=== PATIENT | female | born 1950 | race Caucasian/White ===

== ENCOUNTER → 2018-03-25 11:44 | Outpatient (CLI) | payer MEDICARE, MEDICAID, SELFPAY ==
[2018-03-25 12:16] LABS: Prothrombin Time Fingerstick 16.2 SEC (11.9-14.4)
== END ==
PROVIDERS: Family Provider Family Medicine; PCP Family Medicine; Visit Provider Family Medicine
DX: Z86.73 Personal history of transient ischemic attack (TIA), and cerebral infarction without residual deficits (principal)
CPT/HCPCS: 36415; 36416; 85610

== ENCOUNTER → 2018-04-23 09:21 | Outpatient (CLI) | payer MEDICARE, MEDICAID, SELFPAY ==
[2018-04-23 10:51] LABS: International Normalized Ratio 2.2; Prothrombin Time (Protime)PT. 24.9 SECONDS (11.7-14.9)
== END ==
PROVIDERS: Family Provider Family Medicine; PCP Family Medicine; Visit Provider Family Medicine
DX: Z86.73 Personal history of transient ischemic attack (TIA), and cerebral infarction without residual deficits (principal)
CPT/HCPCS: 36415; 85610

== ENCOUNTER → 2018-06-16 11:33 | Outpatient (CLI) | payer MEDICARE, MEDICAID, SELFPAY ==
[2018-06-16 11:56] LABS: Prothrombin Time Fingerstick 15.1 SEC (11.9-14.4)
== END ==
PROVIDERS: Family Provider Family Medicine; PCP Family Medicine; Visit Provider Family Medicine
DX: Z86.73 Personal history of transient ischemic attack (TIA), and cerebral infarction without residual deficits (principal)
CPT/HCPCS: 36416; 85610

== ENCOUNTER → 2018-07-02 14:09 | Outpatient (CLI) | payer MEDICARE, MEDICAID, SELFPAY ==
[2018-07-02 14:51] LABS: Prothrombin Time Fingerstick 24.4 SEC (11.9-14.4)
== END ==
PROVIDERS: Family Provider Family Medicine; PCP Family Medicine; Visit Provider Family Medicine
DX: Z86.73 Personal history of transient ischemic attack (TIA), and cerebral infarction without residual deficits (principal); Z79.899 Other long term (current) drug therapy
CPT/HCPCS: 36416; 85610

== ENCOUNTER 2018-09-15 13:21 | Outpatient (RCR) | payer MEDICARE, MEDICAID, SELFPAY | END 2018-09-15 15:00 | disposition home or self-care (01) | LOC: LAB 13:21 | PROVIDERS: Family Provider Family Medicine; PCP Family Medicine; Referring Provider Nurse Practitioner Family; Visit Provider Nurse Practitioner Family | DX: Z86.73 Personal history of transient ischemic attack (TIA), and cerebral infarction without residual deficits (principal); Z79.899 Other long term (current) drug therapy | CPT/HCPCS: 36416; 85610 ==

== ENCOUNTER → 2018-10-23 10:35 | Outpatient (CLI) | payer MEDICARE, MEDICAID, SELFPAY ==
[2018-09-17 09:53] VITALS: BMI 34.4
[2018-10-23 12:50] LABS: AST(SGOT) 21 U/L (15-37); Alanine Aminotransfer ALT/SGPT 23 U/L (13-56); Albumin, Serum 3.7 g/dL (3.2-5.0); Alkaline Phosphatase 87 U/L (45-117); Anion Gap 11 (5-15); BUN 19 mg/dL (7-18); BUN/Creat Ratio 21.8 RATIO (10-20); Calcium,Total 9.2 mg/dL (8.5-10.1); Chloride 101 mmol/L (98-107); Cholesterol 175 mg/dL (200); Creatinine, Serum 0.87 mg/dL (0.55-1.02); EST Glomerular Filtration Rate 69 mL/min (>60); Est Glom Filt Rate - Afr Amer 83 mL/min (>60); Globulin 3.7 g/dL (2.2-4.2); Glucose 87 mg/dL (74-106); High Density Lipoprotein 76 mg/dL; Potassium 3.7 mmol/L (3.5-5.1); Protein, Total 7.4 g/dL (6.4-8.2); Sodium Level 139 mmol/L (136-145); Triglycerides 87 mg/dL; Very Low Density Lipoprotein 17 mg/dL (5-40)
== END ==
PROVIDERS: Family Provider Family Medicine; PCP Family Medicine; Referring Provider Family Medicine; Visit Provider Family Medicine
DX: I11.9 Hypertensive heart disease without heart failure (principal)
CPT/HCPCS: 36415; 80053; 80061

== ENCOUNTER → 2018-12-09 11:48 | Outpatient (CLI) | payer MEDICARE, MEDICAID, SELFPAY ==
[2018-12-09 11:05] VITALS: BMI 33.6
[2018-12-09 12:06] LABS: Prothrombin Time Fingerstick 22.1 SEC (11.9-14.4)
== END ==
PROVIDERS: Family Provider Family Medicine; PCP Family Medicine; Referring Provider Family Medicine; Visit Provider Family Medicine
DX: Z86.73 Personal history of transient ischemic attack (TIA), and cerebral infarction without residual deficits (principal)
CPT/HCPCS: 36416; 85610

== ENCOUNTER 2019-02-10 10:07 | Outpatient (RCR) | payer MEDICARE, MEDICAID, SELFPAY ==
[2019-02-10 09:28] VITALS: BMI 34.9
[2019-02-10 12:22] LABS: International Normalized Ratio 1.9; Prothrombin Time (Protime)PT. 21.3 SECONDS (11.7-14.9)
== END 2019-02-28 23:59 ==
LOC: BIMLAB 10:07
PROVIDERS: Family Provider Family Medicine; PCP Family Medicine; Visit Provider Nurse Practitioner Family
DX: Z86.73 Personal history of transient ischemic attack (TIA), and cerebral infarction without residual deficits (principal); Z79.01 Long term (current) use of anticoagulants
CPT/HCPCS: 36415; 85610

== ENCOUNTER 2019-04-13 10:24 | Outpatient (RCR) | payer MEDICARE, MEDICAID, SELFPAY ==
[2019-04-13 10:41] LABS: Prothrombin Time Fingerstick 16.7 SEC (11.9-14.4)
== END 2019-04-13 11:24 | disposition home or self-care (01) ==
LOC: LAB 10:24
PROVIDERS: Family Provider Family Medicine; PCP Family Medicine; Referring Provider Nurse Practitioner Family; Visit Provider Nurse Practitioner Family
DX: Z79.01 Long term (current) use of anticoagulants (principal); Z86.73 Personal history of transient ischemic attack (TIA), and cerebral infarction without residual deficits
CPT/HCPCS: 36416; 85610

== ENCOUNTER 2019-06-14 09:19 | Outpatient (RCR) | payer MEDICARE, MEDICAID, SELFPAY ==
[2019-04-14 09:10] VITALS: BMI 34.9
[2019-06-14 09:41] LABS: Prothrombin Time Fingerstick 16.3 SEC (11.9-14.4)
== END 2019-06-30 16:00 | disposition home or self-care (01) ==
LOC: LAB 09:19
PROVIDERS: Family Provider Family Medicine; PCP Family Medicine; Referring Provider Nurse Practitioner Family; Visit Provider Nurse Practitioner Family
DX: Z86.73 Personal history of transient ischemic attack (TIA), and cerebral infarction without residual deficits (principal); Z79.01 Long term (current) use of anticoagulants
CPT/HCPCS: 36416; 85610

== ENCOUNTER → 2019-08-18 10:24 | Outpatient (CLI) | payer MEDICARE, MEDICAID, SELFPAY ==
[2019-08-18 10:08] VITALS: BMI 35.6
[2019-08-18 12:28] LABS: International Normalized Ratio 1.4; Prothrombin Time (Protime)PT. 16.9 SECONDS (11.7-14.9)
[2019-08-18 13:00] LABS: AST(SGOT) 21 U/L (15-37); Alanine Aminotransfer ALT/SGPT 24 U/L (13-56); Albumin, Serum 3.9 g/dL (3.2-5.0); Alkaline Phosphatase 95 U/L (45-117); Anion Gap 8 (5-15); BUN 22 mg/dL (7-18); BUN/Creat Ratio 28.6 RATIO (10-20); Calcium,Total 9.5 mg/dL (8.5-10.1); Chloride 100 mmol/L (98-107); Cholesterol 185 mg/dL (200); Creatinine, Serum 0.77 mg/dL (0.55-1.02); EST Glomerular Filtration Rate 79 mL/min (>60); Est Glom Filt Rate - Afr Amer 95 mL/min (>60); Globulin 3.9 g/dL (2.2-4.2); Glucose 93 mg/dL (74-106); High Density Lipoprotein 81 mg/dL; Potassium 4.3 mmol/L (3.5-5.1); Protein, Total 7.8 g/dL (6.4-8.2); Sodium Level 138 mmol/L (136-145); Triglycerides 112 mg/dL; Very Low Density Lipoprotein 22 mg/dL (5-40)
== END ==
PROVIDERS: Family Provider Family Medicine; PCP Family Medicine; Visit Provider Family Medicine
DX: I10 Essential (primary) hypertension (principal); Z86.73 Personal history of transient ischemic attack (TIA), and cerebral infarction without residual deficits
CPT/HCPCS: 36415; 80053; 80061; 85610

== ENCOUNTER 2019-11-03 12:58 | Outpatient (RCR) | payer MEDICARE, MEDICAID, SELFPAY ==
[2019-06-16 10:52] VITALS: BMI 34.9
[2019-08-18 10:08] VITALS: BMI 35.6
== END 2019-11-03 18:00 | disposition home or self-care (01) ==
LOC: LAB 12:58
PROVIDERS: Family Provider Family Medicine; PCP Family Medicine; Referring Provider Nurse Practitioner Family; Visit Provider Nurse Practitioner Family
DX: Z79.01 Long term (current) use of anticoagulants (principal); Z86.73 Personal history of transient ischemic attack (TIA), and cerebral infarction without residual deficits
CPT/HCPCS: 36416; 85610

== ENCOUNTER 2019-12-15 15:24 | Outpatient (RCR) | payer MEDICARE, MEDICAID, SELFPAY ==
[2019-08-18 10:08] VITALS: BMI 35.6
[2019-12-15 15:12] VITALS: BMI 35.6
[2019-12-15 17:06] LABS: International Normalized Ratio 1.5; Prothrombin Time (Protime)PT. 18.3 SECONDS (11.7-14.9)
== END 2019-12-15 18:00 | disposition home or self-care (01) ==
LOC: LAB 15:24
PROVIDERS: Family Provider Family Medicine; PCP Family Medicine; Referring Provider Nurse Practitioner Family; Visit Provider Nurse Practitioner Family
DX: Z79.01 Long term (current) use of anticoagulants (principal); Z86.73 Personal history of transient ischemic attack (TIA), and cerebral infarction without residual deficits
CPT/HCPCS: 36415; 85610

== ENCOUNTER 2020-03-10 10:31 | Outpatient (RCR) | payer MEDICARE, MEDICAID, SELFPAY ==
[2020-03-10 13:01] LABS: Prothrombin Time Fingerstick 21.1 SEC (11.9-14.4)
== END 2020-03-30 18:00 | disposition home or self-care (01) ==
LOC: LAB 10:31
PROVIDERS: Family Provider Family Medicine; PCP Family Medicine; Referring Provider Nurse Practitioner Family; Visit Provider Nurse Practitioner Family
DX: Z86.73 Personal history of transient ischemic attack (TIA), and cerebral infarction without residual deficits (principal); Z79.01 Long term (current) use of anticoagulants
CPT/HCPCS: 36416; 85610

== ENCOUNTER 2020-06-06 11:44 | Outpatient (RCR) | payer MEDICARE, MEDICAID, SELFPAY ==
[2020-03-16 08:44] VITALS: BMI 35.6
[2020-06-07 07:16] LABS: Prothrombin Time Fingerstick 24.6 SEC (11.9-14.4)
== END 2020-06-06 18:00 | disposition home or self-care (01) ==
LOC: LAB 11:44
PROVIDERS: Family Provider Family Medicine; PCP Family Medicine; Referring Provider Nurse Practitioner Family; Visit Provider Nurse Practitioner Family
DX: Z79.01 Long term (current) use of anticoagulants (principal); Z86.73 Personal history of transient ischemic attack (TIA), and cerebral infarction without residual deficits
CPT/HCPCS: 36416; 85610

== ENCOUNTER → 2020-06-07 11:45 | Outpatient (CLI) | payer MEDICARE, MEDICAID, SELFPAY ==
[2020-06-07 11:14] VITALS: BMI 35.6
[2020-06-07 13:16] LABS: BNP,B-Type NATRIURETIC PEPTIDE 83.8 pg/mL (0-100)
[2020-06-07 13:24] LABS: AST(SGOT) 21 U/L (15-37); Alanine Aminotransfer ALT/SGPT 25 U/L (13-56); Albumin, Serum 3.9 g/dL (3.2-5.0); Alkaline Phosphatase 94 U/L (45-117); Anion Gap 4 (5-15); BUN 20 mg/dL (7-18); BUN/Creat Ratio 22.5 RATIO (10-20); Calcium,Total 9.4 mg/dL (8.5-10.1); Chloride 103 mmol/L (98-107); Creatinine, Serum 0.89 mg/dL (0.55-1.02); EST Glomerular Filtration Rate 67 mL/min (>60); Est Glom Filt Rate - Afr Amer 81 mL/min (>60); Globulin 3.9 g/dL (2.2-4.2); Glucose 88 mg/dL (74-106); Potassium 4.1 mmol/L (3.5-5.1); Protein, Total 7.8 g/dL (6.4-8.2); Sodium Level 137 mmol/L (136-145)
== END ==
PROVIDERS: PCP Family Medicine; Referring Provider Family Medicine; Visit Provider Family Medicine
DX: R06.00 Dyspnea, unspecified (principal); I10 Essential (primary) hypertension
CPT/HCPCS: 36415; 80053; 83880

== ENCOUNTER → 2020-06-13 09:40 | Outpatient (CLI) | payer MEDICARE, MEDICAID, SELFPAY ==
[2020-06-07 11:14] VITALS: BMI 35.6
--- NOTE | 2020-06-13 09:40 | VDLE_ITS ---
Reason For Study: Swelling Procedure LEFT Exam performed in department. GSV is normal. A preliminary report was called and/or faxed CFV is compressible, spontaneous, phasic, to Jeff. competent, and demonstrates normal augmentation. FV is compressible, spontaneous, phasic, competent and demonstrates normal augmentation. FV Distal visualized with color only, pt unable to tolerate compression. POP V is compressible, spontaneous, phasic, competent and demonstrates normal augmentation. T/P Trunk is compressible. PTV is compressible. LT PerV is compressible. Interpretation Summary There is no evidence of left lower extremity deep vein thrombosis. Left great saphenous vein appears patent and compressible segmentally. Ordering Physician: Romario Aguilar Referring Physician: Romario Aguilar Performed By: Bety Mcarthur RVT
== END ==
PROVIDERS: PCP Family Medicine; Referring Provider Family Medicine; Visit Provider Family Medicine
DX: M79.89 Other specified soft tissue disorders (principal)
CPT/HCPCS: 93971

== ENCOUNTER → 2020-07-07 10:04 | Outpatient (CLI) | payer MEDICARE, MEDICAID, SELFPAY ==
[2020-06-23 15:14] VITALS: BMI 35.6
--- NOTE | 2020-07-07 11:12 | ECHOCS_ITS ---
Version 2 Reason For Study: SOB Procedure This was a 2D Doppler, Color Flow transthoracic echocardiogram. The study was technically difficult. Exam performed in department. Left Ventricle Normal LV size. The estimated ejection fraction is 50 %. Diastolic function is indeterminate. [place] : Hypokinetic. Right Ventricle Normal RV size. Normal systolic function. Atria Normal left atrium. Normal right atrium. No doppler evidence for ASD. Mitral Valve There is moderate mitral annular calcification. There is no mitral valve stenosis. Trivial mitral valve insufficiency. Tricuspid Valve There is no tricuspid stenosis. Unable to estimate RV systolic pressure due to inadequate jet, pulmonary artery pressure probably normal. Aortic Valve Trisinus/trileaflet aortic valve. There is no aortic stenosis. No aortic valve insufficiency. Pulmonic Valve There is no pulmonic valvular stenosis. No pulmonic valve insufficiency. Great Vessels Normal aortic root. Pericardium/Pleural No pericardial effusion. Medication 22 gauge I.V. with prn adaptor inserted into right arm. Diluted definity 2ml given slow IV push to enhance endocardial definition. MMode/2D Measurements & Calculations LVIDd: 4.4 cm IVSd: 0.89 cm Ao root diam: 2.6 cm LVIDs: 3.0 cm LVPWd: 1.0 cm RVDd: 2.8 cm FS: 31.3 % LAV(MOD-bp): 45.9 ml LA A4 area: 16.4 cm2 LA dimension(2D): 3.7 cm LAV(MOD-bp) Indexed: 22.7 ml/m2 LAV(MOD-sp2): 49.3 ml LAV(MOD-sp4): 42.3 ml RA A4 area: 14.0 cm2 Doppler Measurements & Calculations MV E max arul: 91.8 cm/sec Lat Peak E' Raul: 8.0 cm/sec Med Peak E' Raul: 5.4 cm/sec E/E' lat: 11.4 E/E' med: 16.9 Ao V2 max: 142.7 cm/sec LV V1 max: 106.6 cm/sec PA V2 max: 104.8 cm/sec Ao max P.2 mmHg LV V1 max P.5 mmHg Interpretation Summary The estimated ejection fraction is 50 %. [place] : Hypokinetic. Trivial mitral valve insufficiency. Diastolic function is indeterminate. The study was technically difficult. Contrast injection was performed. Ordering Physician: Romario Aguilar Referring Physician: Romario Aguilar Performed By: Amanda Whitley RDCS
== END ==
PROVIDERS: PCP Family Medicine; Referring Provider Family Medicine; Visit Provider Family Medicine
DX: R06.00 Dyspnea, unspecified (principal); R06.02 Shortness of breath; J44.9 Chronic obstructive pulmonary disease, unspecified
CPT/HCPCS: 93306; J7040; Q9957; A4216; C8929

== ENCOUNTER → 2020-08-18 06:49 | Outpatient (CLI) | payer MEDICARE, MEDICAID, SELFPAY ==
[2020-07-26 09:51] VITALS: BMI 41.5
--- NOTE | 2020-08-18 11:26 | STRESSREP ---
Stress Test Report Pharmacologic myocardial perfusion stress test. 70-year-old lady with a history of previous coronary artery disease, COPD, abnormal echocardiogram. Resting EKG demonstrates normal sinus rhythm with downsloping ST depression noted in the inferolateral leads rate of 71 bpm. Resting blood pressure is 130/72 mmHg. 0.4 mg of regadenoson was infused per usual protocol followed by rapid intravenous saline flush injection continuous EKG monitoring was performed. The maximum heart rate attained was 95 bpm which was 63% of maximal predicted heart rate. At rest nonspecific ST-T wave changes were noted as noted above. At peak infusion there was downsloping ST depression noted of approximately 2 mm noted in leads II, III and aVF suggestive of abnormal flow reserve. The resting blood pressure was 130/72 with a final blood pressure of 124/76. Myocardial perfusion protocol. 11.7 mCi of technetium 99m sestamibi was injected at rest. 0.4 mg of regadenoson was infused per usual protocol. At peak infusion 32.8 mCi of technetium 99m sestamibi was injected stress images were obtained stress and rest images are reconstructed and compared in the short axis vertical long horizontal long axis. Gated images were also obtained. Perfusion SPECT analysis: Review of the stress images demonstrate a medium size defect noted involving the anterior apical wall. There is also a medium-sized defect involving the lateral wall and a large defect involving the inferior wall. On the resting images there appears to be a fixed defect in the apex but mild improvement in the mid anterior wall. The lateral wall also appears to have a mild to moderate amount of improvement as well as mild improvement noted in the inferior wall. The above is suggestive of multi-territory ischemia involving the anterior wall, lateral wall, inferior wall. Gated SPECT analysis: The gated ejection fraction is 63%. Conclusion: Abnormal pharmacologic myocardial perfusion stress test with abnormal EKG changes. Moderate amount of ischemia noted in the anterolateral wall, mid lateral wall, and inferior wall. Normal ejection fraction.
== END ==
PROVIDERS: PCP Family Medicine; Referring Provider Internal Medicine Cardiovascular Disease; Visit Provider Internal Medicine Cardiovascular Disease
DX: I25.10 Atherosclerotic heart disease of native coronary artery without angina pectoris (principal); R06.00 Dyspnea, unspecified
CPT/HCPCS: 78452; 93017; A9500; A4216; J2785

== ENCOUNTER 2020-08-22 06:32 | Day surgery (SDC) | payer MEDICARE, MEDICAID, SELFPAY ==
[2020-07-26 09:51] VITALS: BMI 41.5
--- NOTE | 2020-08-21 09:55 | RAD_ITS ---
STUDY: X-RAY CHEST REASON FOR EXAM: Female, 70 years old. DYSPNEA, ABNORMAL STRESS TEST, ABNORMAL ECHO TECHNIQUE: PA and lateral views of the chest. COMPARISON: None. FINDINGS: Mild degree of increased markings at the lung bases more prominent on the left side suggests a mild left basilar atelectasis. There is no demonstrated pleural abnormality. Normal size heart. Normal mediastinum and tommy. Normal visualized pulmonary arteries. There is atherosclerotic calcification of the aortic arch with tortuosity. There are diffuse degenerative changes of the visualized thoracic spine. Normal visualized ribs, clavicles, and shoulders. There is no demonstrated abnormality of the visualized soft tissue structures of the upper abdomen. RAD/Chest PA and Lateral IMPRESSION: Mild degree of increased markings at the lung bases from the left side. Electronically Signed: Blaze Pacheco, at 10:11 EDT , Service support ,
[2020-08-21 09:57] VITALS: BMI 41.5
[2020-08-21 10:01] LABS: Absolute Lymphocyte Count 3.41 X10^3/uL (0.83-4.51); Absolute Neutrophil Count 3.8 X10^3/uL (2.0-7.7); Basophil# 0.07 X10^3/uL; Basophil% 0.8 % (0-1); Eosinophils% 2.4 % (0-5); Hematocrit 34.4 % (37-47); Hemoglobin 10.4 g/dL (12.0-15.0); Lymphocyte # 3.41 X10^3/ul (4.0); Lymphocyte % 41.1 % (19-41); Mean Corp Hgb Conc 30.2 g/dL (32-36); Mean Corpuscular Hgb 28.8 pg (27.0-32.0); Mean Corpuscular Volume 95.3 fL (81-99); Monocyte# 0.75 X10^3/uL; NRBC Flagged by Analyzer 0 % (0-5); Neutrophil # 3.81 X10^3/uL (2.7-7.7); Neutrophil % 46.1 % (47-70); Platelet Count 333 K/mm3 (150-450); RBC Distribution Width CV 13.2 % (11.6-14.6); RBC Distribution Width SD 46.8 fl (35.1-43.9); Red Blood Count 3.61 M/mm3 (4.2-5.4); White Blood Count 8.3 K/mm3 (4.4-11.0)
[2020-08-21 10:11] LABS: International Normalized Ratio 1.1; Prothrombin Time (Protime)PT. 13.6 SECONDS (11.7-14.9)
[2020-08-21 10:30] LABS: Anion Gap 2 (5-15); BUN 19 mg/dL (7-18); BUN/Creat Ratio 22.1 RATIO (10-20); Calcium,Total 9.3 mg/dL (8.5-10.1); Chloride 105 mmol/L (98-107); Creatinine, Serum 0.86 mg/dL (0.55-1.02); EST Glomerular Filtration Rate 69 mL/min (>60); Est Glom Filt Rate - Afr Amer 84 mL/min (>60); Estimated Creatinine Clearance 45.28 ml/min; Glucose 76 mg/dL (74-106); Sodium Level 138 mmol/L (136-145)
[2020-08-22 06:51] LABS: Prothrombin Time Fingerstick 16.3 SEC (11.9-14.4)
--- NOTE | 2020-08-22 08:52 | CL.D_ITS ---
Patient Name: DEDRICK BUSTILLO Study Date: 08/22/2020 Performing: Norman Mccoy MD Ht: 61.02 inches 155 cm : 1950 Wt: 220.46 lbs 100 kg Age: 70 Gender: female BSA: 1.97 PROCEDURE(S) PERFORMED VD59-DOC/COR/LV CLINICAL PROFILE AND INDICATIONS Indications: Suspected CAD Heart Failure: None Stress/Imaging Date: 08/18/2020Stress Test with SPECT MPI: Positive High Risk CAD Presentations: Other: SOB CONCLUSIONS Severe triple-vessel disease involving a totally occluded mid LAD with distal ghost collaterals filli ng, high-grade circumflex artery stenosis, high-grade right coronary artery stenosis. Left to left a nd left to right collaterals filling the distal right coronary artery are noted. Nearly akinetic bas al inferior wall and hypokinetic anterior wall present. RECOMMENDATIONS Medical therapy DESCRIPTION OF PROCEDURE The patient arrived to the procedure lab. The risks and benefits of the procedure as well as a full d escription of our services here and current unavailability of surgical backup were fully explained to the patient and/or their significant other prior to the catheterization. The Timeout was completed, verifying the correct patient and procedure. The patient's procedural site was prepped and draped in the usual fashion. Local anesthetic was given subcutaneously to right radial region with Lidocaine 2% . Using a modified Seldinger technique, arterial access was obtained via the right radial artery, a 6 Fr sheath was inserted. Left Coronary Artery selective angiography was performed in multiple views u sing a 5 Fr. 4.0 [place] catheter. Right Coronary Artery selective angiography was then performed in mu ltiple views using a 5 Fr. 4.0 [place] catheter. Left Ventriculography was performed in GONZALEZ projection using a 5 Fr. Pigtail catheter. LV to AO pullback pressures were then recorded. CORONARY ANGIOGRAPHY DOMINANCE: Right Dominant LEFT HEART ASSESSMENT Left Ventricular Ejection Fraction: by LV Gram 40 % Anterior Hypokinesis - Moderate. Inferior Basal Akinesis Depressed Left Ventricular systolic function LEFT MAIN: Mild calcification, No significant disease noted LEFT ANTERIOR DESCENDING ARTERY: MID LAD: is occluded DISTAL LAD: Fills via collaterals, small vessel CIRCUMFLEX ARTERY: Mild luminal irregularities less than 30% OM 1: Proximal - 80 % Stenosis RIGHT CORONARY ARTERY: PROX RCA: 80 % Stenosis COLLATERAL FLOW: Collateral flow from Left to Left Collateral flow from Left to Right COMPLICATIONS PROCEDURE MEDICATIONS Fentanyl 50 mcg IV Versed 1 mg IV Oxygen: 2 L/min via nasal cannula Heparin diluted in 23cc Heparinized saline. Patient given 10cc IA of this solution. 08/22/2020 08:10: 38 Verapamil 2.5mg, Ntg 100mcgs, 2000 units of Heparin diluted in 23cc Heparinized saline. Patient give n 10cc IA of this solution. 08/22/2020 08:10:38 SUMMARY OF HEMODYNAMIC DATA Time AIR REST ECG 07:13:17 AO 133/62 (92) SA 08:11:47 LV 126/8, 23 08:19:52 LV 128/7, 23 08:19:58 LV 128/12, 27 08:21:01 LVp 125/51, 56 08:21:10 AOp 126/55 (86) 08:21:15 Signed By Norman Mccoy MD On 08/22/2020 8:50:46 AM Norman Mccoy MD
== END 2020-08-22 10:40 | disposition home or self-care (01) ==
PROVIDERS: PCP Family Medicine; Referring Provider Internal Medicine Cardiovascular Disease; Visit Provider Internal Medicine Cardiovascular Disease
DX: I25.10 Atherosclerotic heart disease of native coronary artery without angina pectoris (principal); I25.82 Chronic total occlusion of coronary artery; J44.9 Chronic obstructive pulmonary disease, unspecified; I10 Essential (primary) hypertension; E66.9 Obesity, unspecified; Z79.01 Long term (current) use of anticoagulants; Z79.82 Long term (current) use of aspirin; Z79.899 Other long term (current) drug therapy; Z86.73 Personal history of transient ischemic attack (TIA), and cerebral infarction without residual deficits; Z87.891 Personal history of nicotine dependence
CPT/HCPCS: 36415; 36416; 71046; 80048; 85025; 85610; 93458; 99152; 99153; J7040; C1769; C1894; Q9967

== ENCOUNTER 2020-09-27 10:59 | Outpatient (RCR) | payer MEDICARE, MEDICAID, SELFPAY ==
[2020-06-23 15:14] VITALS: BMI 35.6
[2020-07-26 09:51] VITALS: BMI 41.5
[2020-09-05 09:51] VITALS: BMI 41.5
[2020-09-27 11:25] LABS: Prothrombin Time Fingerstick 42.7 SEC (11.9-14.4)
[2020-09-27 12:33] LABS: International Normalized Ratio 3.3; Prothrombin Time (Protime)PT. 33.1 SECONDS (11.7-14.9)
== END 2020-09-27 18:00 | disposition home or self-care (01) ==
LOC: MTLAB 10:59
PROVIDERS: Family Provider Family Medicine; PCP Family Medicine; Referring Provider Nurse Practitioner Family; Visit Provider Nurse Practitioner Family
DX: Z79.01 Long term (current) use of anticoagulants (principal); Z86.73 Personal history of transient ischemic attack (TIA), and cerebral infarction without residual deficits
CPT/HCPCS: 36415; 36416; 85610

== ENCOUNTER 2020-11-15 14:59 | Outpatient (RCR) | payer MEDICARE, MEDICAID, SELFPAY ==
[2020-09-28 10:19] VITALS: BMI 41.3
--- NOTE | 2020-11-07 12:37 | RAD_ITS ---
HISTORY: dyspnea ADDITIONAL HISTORY: None provided. COMPARISON: 08/21/2020 EXAMINATION/TECHNIQUE: XR Chest 2 Views Number of images including paperwork: 2 FINDINGS: LUNGS AND PLEURA: No dense consolidation. Mild peribronchial thickening. Blunting of the right costophrenic angle on the AP view. CARDIAC SILHOUETTE: Stable. MEDIASTINUM AND SEVERO: Aortic calcification and tortuosity. UPPER ABDOMEN: Unremarkable. SKELETON AND SOFT TISSUES: No acute findings. OTHER DEVICES AND HARDWARE: None. RAD/Chest PA and Lateral IMPRESSION: Peribronchial thickening as can be seen with bronchitis and airways disease. Small right pleural effusion versus pleural scarring. at [id number] Reported and signed by: Gypsy El MD Electronically Signed: Gypsy El MD at 4:56 EST Tel , Service support ,
[2020-11-07 12:46] LABS: Prothrombin Time Fingerstick 15.6 SEC (11.9-14.4)
[2020-11-16 11:40] LABS: Prothrombin Time Fingerstick 30.1 SEC (11.9-14.4)
== END 2020-11-15 18:00 | disposition home or self-care (01) ==
LOC: MTLAB 14:59
PROVIDERS: Family Provider Family Medicine; PCP Family Medicine; Referring Provider Nurse Practitioner Family; Visit Provider Nurse Practitioner Family
DX: Z86.73 Personal history of transient ischemic attack (TIA), and cerebral infarction without residual deficits (principal); Z79.01 Long term (current) use of anticoagulants
CPT/HCPCS: 36416; 71046; 85610

== ENCOUNTER → 2020-12-26 11:14 | Outpatient (CLI) | payer MEDICARE, MEDICAID, SELFPAY ==
[2020-12-26 10:26] VITALS: BMI 41.3
[2020-12-26 12:42] LABS: Absolute Lymphocyte Count 2.19 X10^3/uL (0.83-4.51); Basophil# 0.06 X10^3/uL; Basophil% 0.7 % (0-1); Eosinophil# 0.29 X10^3/uL; Eosinophils% 3.1 % (0-5); Hematocrit 31.5 % (37-47); Lymphocyte # 2.19 X10^3/ul (4.0); Lymphocyte % 23.8 % (19-41); Mean Corp Hgb Conc 28.6 g/dL (32-36); Mean Corpuscular Hgb 27.7 pg (27.0-32.0); Mean Corpuscular Volume 96.9 fL (81-99); Mean Platelet Vol. 10.2 fl (6.2-12.0); Monocyte# 0.67 X10^3/uL; Monocyte% 7.3 % (0-10); NRBC Flagged by Analyzer 0 % (0-5); Neutrophil # 5.96 X10^3/uL (2.7-7.7); Neutrophil % 64.7 % (47-70); Platelet Count 403 K/mm3 (150-450); RBC Distribution Width CV 13.7 % (11.6-14.6); RBC Distribution Width SD 48.8 fl (35.1-43.9); Red Blood Count 3.25 M/mm3 (4.2-5.4); White Blood Count 9.2 K/mm3 (4.4-11.0)
[2020-12-26 13:23] LABS: Anion Gap 3 (5-15); BUN 13 mg/dL (7-18); BUN/Creat Ratio 17.4 RATIO (10-20); Calcium,Total 8.9 mg/dL (8.5-10.1); Chloride 101 mmol/L (98-107); Creatinine, Serum 0.75 mg/dL (0.55-1.02); EST Glomerular Filtration Rate 81 mL/min (>60); Est Glom Filt Rate - Afr Amer 98 mL/min (>60); Glucose 94 mg/dL (74-106); Potassium 4.1 mmol/L (3.5-5.1); Sodium Level 138 mmol/L (136-145)
[2020-12-26 13:26] LABS: BNP,B-Type NATRIURETIC PEPTIDE 109.2 pg/mL (0-100)
== END ==
PROVIDERS: PCP Family Medicine; Referring Provider Nurse Practitioner Family; Visit Provider Nurse Practitioner Family
DX: R06.00 Dyspnea, unspecified (principal); I25.10 Atherosclerotic heart disease of native coronary artery without angina pectoris; I10 Essential (primary) hypertension
CPT/HCPCS: 36415; 80048; 83880; 85025

== ENCOUNTER 2021-01-23 09:12 | Outpatient (RCR) | payer MEDICARE, MEDICAID, SELFPAY ==
[2020-09-28 10:19] VITALS: BMI 41.3
[2020-12-26 10:26] VITALS: BMI 41.3
[2021-01-09 14:31] LABS: Prothrombin Time Fingerstick 41.1 SEC (11.9-14.4)
[2021-01-09 18:16] LABS: International Normalized Ratio 2.7; Prothrombin Time (Protime)PT. 28.4 SECONDS (11.7-14.9)
[2021-01-23 10:19] LABS: International Normalized Ratio 2.1; Prothrombin Time (Protime)PT. 23.1 SECONDS (11.7-14.9)
[2021-01-23 10:29] LABS: Anion Gap 3 (5-15); BUN 31 mg/dL (7-18); BUN/Creat Ratio 29.5 RATIO (10-20); Calcium,Total 9.4 mg/dL (8.5-10.1); Chloride 101 mmol/L (98-107); Creatinine, Serum 1.05 mg/dL (0.55-1.02); EST Glomerular Filtration Rate 55 mL/min (>60); Est Glom Filt Rate - Afr Amer 66 mL/min (>60); Glucose 96 mg/dL (74-106); Potassium 4.3 mmol/L (3.5-5.1); Sodium Level 137 mmol/L (136-145)
== END 2021-01-23 18:00 | disposition home or self-care (01) ==
LOC: LAB 09:12
PROVIDERS: Nurse Practitioner Family; Family Provider Family Medicine; PCP Family Medicine; Referring Provider Nurse Practitioner Family; Visit Provider Nurse Practitioner Family
DX: Z86.73 Personal history of transient ischemic attack (TIA), and cerebral infarction without residual deficits (principal); Z79.01 Long term (current) use of anticoagulants
CPT/HCPCS: 36415; 36416; 80048; 85610

== ENCOUNTER 2021-02-21 11:07 | Outpatient (RCR) | payer MEDICARE, MEDICAID, SELFPAY ==
[2021-01-23 08:31] VITALS: BMI 37.8
[2021-02-21 10:57] VITALS: BMI 41.3
[2021-02-21 12:30] LABS: International Normalized Ratio 2.2; Prothrombin Time (Protime)PT. 23.5 SECONDS (11.7-14.9)
[2021-02-21 12:49] LABS: Anion Gap 3 (5-15); BUN 32 mg/dL (7-18); BUN/Creat Ratio 26.7 RATIO (10-20); Calcium,Total 9.6 mg/dL (8.5-10.1); Chloride 100 mmol/L (98-107); EST Glomerular Filtration Rate 47 mL/min (>60); Est Glom Filt Rate - Afr Amer 57 mL/min (>60); Glucose 95 mg/dL (74-106); Potassium 5.5 mmol/L (3.5-5.1); Sodium Level 136 mmol/L (136-145)
== END 2021-02-28 23:59 ==
LOC: BIMLAB 11:07
PROVIDERS: Nurse Practitioner Family; Family Provider Family Medicine; PCP Family Medicine; Referring Provider Nurse Practitioner Family; Visit Provider Nurse Practitioner Family
DX: Z79.01 Long term (current) use of anticoagulants (principal); Z86.73 Personal history of transient ischemic attack (TIA), and cerebral infarction without residual deficits
CPT/HCPCS: 36415; 80048; 85610

== ENCOUNTER 2021-03-16 13:39 | Outpatient (RCR) | payer MEDICARE, MEDICAID, SELFPAY ==
[2021-03-01 09:41] VITALS: BMI 43.4
[2021-03-16 15:50] LABS: Anion Gap 4 (5-15); BUN 17 mg/dL (7-18); BUN/Creat Ratio 16.5 RATIO (10-20); Calcium,Total 9.1 mg/dL (8.5-10.1); Chloride 99 mmol/L (98-107); Creatinine, Serum 1.03 mg/dL (0.55-1.02); EST Glomerular Filtration Rate 56 mL/min (>60); Est Glom Filt Rate - Afr Amer 68 mL/min (>60); Glucose 104 mg/dL (74-106); Potassium 4.5 mmol/L (3.5-5.1); Sodium Level 137 mmol/L (136-145)
[2021-03-16 16:14] LABS: International Normalized Ratio 2.5; Prothrombin Time (Protime)PT. 25.9 SECONDS (11.7-14.9)
== END 2021-03-30 23:59 ==
LOC: BIMLAB 13:39
PROVIDERS: Nurse Practitioner Family; Family Provider Family Medicine; PCP Family Medicine; Referring Provider Nurse Practitioner Family; Visit Provider Nurse Practitioner Family
DX: I25.10 Atherosclerotic heart disease of native coronary artery without angina pectoris (principal)
CPT/HCPCS: 36415; 80048; 85610

== ENCOUNTER 2021-03-30 15:38 | Emergency (ER) | payer MEDICARE, MEDICAID, SELFPAY ==
[2021-03-20 11:14] VITALS: BMI 41.3
[2021-03-30] VITALS (7 sets, daily range): BP systolic 130–171; BP diastolic 70–99; PULSE 90–98; RESP 20–28; TEMP 36.1; O2SAT 94–99; BMI 43.4
--- NOTE | 2021-03-30 16:24 | EX.ED.DYSGE1 ---
HPI History of Present Illness Chief Complaint: Vag Bleeding Informant: patient and other (POA) Narrative Narrative: 70-year-old female with history of stroke on Coumadin states that last night and today she had a small amount of vaginal bleeding. She denies any pain. She denies any clots. She states she has not done this for many years. 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 Her POA in the room states that she had vaginal bleed about a month ago the patient denies this. She denies any pelvic trauma. [facility] Medical History (Updated 03/30/21 @ 17:[address] Codey Veliz, DO) Atherosclerotic heart disease of [place] coronary artery without angina pectoris Chronic bronchitis COPD (chronic obstructive pulmonary disease) Dysphasia Essential hypertension History of CVA (cerebrovascular accident) History of successful cardiopulmonary resuscitation Insomnia Lymphedema Obesity Home Medications aspirin 81 mg tablet,delayed release 81 mg PO QDAY 03/25/18 [History Last Taken 08/22/20] home oxygen #1 ea 08/24/20 [Rx Last Taken Unknown] lisinopril 10 mg tablet 10 mg PO QDAY #90 tab 08/24/20 [Rx Last Taken Unknown] albuterol sulfate 1.25 mg/3 mL solution for nebulization 1.25 mg INHALATION Q6H #90 vial 11/01/20 [Rx Last Taken Unknown] nebulizer #1 ea 11/01/20 [Rx Last Taken Unknown] albuterol sulfate 1.25 mg/3 mL solution for nebulization 1.25 mg INHALATION Q6H #180 ml 11/16/20 [Rx Last Taken Unknown] simvastatin 40 mg tablet 40 mg PO QAM #90 tab 12/06/20 [Rx Last Taken Unknown] montelukast 10 mg tablet 10 mg PO DAILY #30 tab 12/27/20 [Rx Last Taken Unknown] budesonide-formoterol HFA 160 mcg-4.5 mcg/actuation aerosol inhaler 2 puff INHALATION BID #10.2 g 01/10/21 [Rx Last Taken Unknown] buspirone 7.5 mg tablet 7.5 mg PO BID #60 tab 01/10/21 [Rx Last Taken Unknown] tiotropium bromide 2.5 mcg/actuation mist for inhalation 2 puff INHALATION QDAY #4 g 01/10/21 [Rx Last Taken Unknown] warfarin 2 mg tablet 2 mg PO .COMPLEX #30 tab 01/10/21 [Rx Last Taken Unknown] warfarin 5 mg tablet 5 mg PO QDAY #90 tab 01/10/21 [Rx Last Taken Unknown] potassium chloride 20 mEq tablet,extended release 20 meq PO DAILY #90 tab 01/23/21 [Rx Last Taken Unknown] carvedilol 3.125 mg tablet 3.125 mg PO BID #60 tab 01/24/21 [Rx Last Taken Unknown] furosemide 40 mg tablet 40 mg PO DAILY #90 tablet 02/21/21 [Rx Last Taken Unknown] trazodone 100 mg tablet 100 mg PO QHS PRN #30 tablet 02/21/21 [Rx Last Taken Unknown] isosorbide mononitrate 30 mg tablet,extended release 24 hr 30 mg PO QHS #30 tablet 03/01/21 [Rx Last Taken Unknown] Allergy/AdvReac Type Severity Reaction Status Date / Time metal Allergy Severe Rash Uncoded 03/30/21 15:38 Family History Brother Heart disease Father Cancer Grandfather Cancer Sister Diabetes Surgical History History of appendectomy History of left heart catheterization History of tonsillectomy Social History Smoking Status: Former smoker quit date: 12/01/19 pack-years: 55 alcohol intake: never substance use type: does not use what type of physical activity do you participate in: none ROS ROS ED Constitutional Constitutional ED: Denies chills or weight loss Eyes Eyes: Denies change in vision or diplopia ENT ENT ED: Denies ear pain, rhinorrhea or sore throat Cardiovascular Cardiovascular: Denies chest pain, orthopnea, palpitations or racing heartbeat Respiratory/Chest Respiratory/Chest: Reports dyspnea and other Details: Wears home oxygen ; Denies cough or orthopnea Gastrointestinal Gastrointestinal: Denies abdominal pain, diarrhea, nausea or vomiting Genitourinary Genitourinary ED: Denies dysuria, hematuria or urinary frequency Musculoskeletal Musculoskeletal: Denies arthralgias or myalgias Integumentary Denies abscess or rash Neurologic Neurologic: Denies headache(s) or weakness Psychiatric Psychiatric: Denies anxiety, depression, suicidal ideation or suicidal thoughts Endocrine Endocrinology: Denies polydipsia, polyphagia or polyuria Allergic/Immunologic Allergic/Immunologic ED: Denies mouth swelling, tongue swelling or urticaria EXAM Physical Exam Const Vital Signs: 03/30/21 15:39 03/30/21 15:48 03/30/21 16:55 Temperature 97 F L Temperature Source Temporal Pulse Rate 98 98 94 Respiratory Rate 22 H 28 H 28 H Blood Pressure 139/70 H 171/97 H Blood Pressure Mean 93 121 Pulse Ox 97 94 99 Oxygen Delivery Method Nasal Cannula Nasal Cannula Nasal Cannula Oxygen Flow Rate (L/min) 3 3 4 03/30/21 17:14 03/30/21 17:15 03/30/21 17:26 Temperature Temperature Source Pulse Rate 97 Respiratory Rate 23 H Blood Pressure 160/99 H Blood Pressure Mean 119 Pulse Ox 95 96 94 Oxygen Delivery Method Nasal Cannula Nasal Cannula Nasal Cannula Oxygen Flow Rate (L/min) 3 3 3 Positive well nourished, well developed and obese General Appearance ED: well developed Nutritional Appearance: obese HEENT Reports normocephalic, head/scalp atraumatic and moist mucous membranes Eyes PERRL and EOMs intact bilaterally Neck no lymphadenopathy, supple and no JVD Resp normal respiratory effort and clear to auscultation bilaterally Cardio regular rate and no murmurs Rate: tachycardic GI normal to inspection, nondistended, normoactive bowel sounds and non-tender Palpation: soft Narrative: I do not see any active bleeding. The cervix appears vascular. I do not see any fresh clots. There is no palpable masses of the uterus or adnexa though body habitus and the patient's ability to lay down limits exam. Back/Spine no CVA tenderness and normal ROM Extremity normal to inspection Extremity Narrative: Bilateral lower extremity edema symmetric General Extremety ED: Yes edema General Extremity: edema Neuro oriented x3 and CN's II-XII intact bilaterally Sensorium / Orientation: alert Motor Exam: strength 5/5 throughout Psych mental status grossly normal Mood & Affect: Negative for depressed or tearful Skin no rashes or lesions noted and no wounds MDM MDM MDM Narrative Medical decision making narrative: Patient's hemoglobin is stable. Her INR is 1.8. Patient does not feel comfortable getting an ultrasound today as she does not believe she can lay down. I will refer her to [facility] for follow-up. Lab Data Attestation: I reviewed the patient's lab results. Labs: Laboratory Results - last 24 hr 03/30/21 03/30/21 03/30/21 16:40 16:40 16:40 WBC 8.6 RBC 3.63 L Hgb 10.1 L Hct 34.4 L MCV 94.8 MCH 27.8 MCHC 29.4 L RDW Std Deviation 47.3 H RDW Coeff of Huy[place] 13.6 Plt Count 429 MPV 9.3 Immature Gran % (Auto) 0.500 Neut % (Auto) 67.5 Lymph % (Auto) 20.8 [place] % (Auto) 7.8 Eos % (Auto) 2.7 Baso % (Auto) 0.7 Absolute Neuts (auto) 5.8 Absolute Lymphs (auto) 1.79 Nucleated RBC % 0 PT 20.4 H INR 1.8 Sodium 138 Potassium 4.3 Chloride 100 Carbon Dioxide 37.0 H Anion Gap 1 L BUN 13 Creatinine 0.91 Estim Creat Clear Calc 42.79 Est GFR (MDRD) Af Amer 78 Est GFR (MDRD) Non-Af 64 BUN/Creatinine Ratio 14.2 Glucose 104 Calcium 9.2 Discharge Plan Triage Chief Complaint: Vag Bleeding ED Provider: Codey Veliz Dx/Rx/DC Orders Clinical Impression: Abnormal vaginal bleeding in postmenopausal patient, Anticoagulated on Coumadin Instructions: ED Dysfunctional Uterine Bleeding Prescriptions: No Action aspirin 81 mg tablet,delayed release (DR/EC) 81 mg PO QDAY RF: 0 (DME) home oxygen Qty: 1 RF: 0 lisinopril 10 mg tablet 10 mg PO QDAY Qty: 90 RF: 3 (DME) nebulizer See Rx Instructions .Route .MEDSUPPLY Qty: 1 RF: 0 albuterol sulfate 1.25 mg/3 mL solution for nebulization 1.25 mg INHALATION Q6H Qty: 90 RF: 1 simvastatin 40 mg tablet 40 mg PO QAM Qty: 90 RF: 1 Spiriva Respimat 2.5 mcg/actuation mist 2 puff INHALATION QDAY Qty: 4 RF: 4 Hold Instructions: Duplicate Order Symbicort 160-4.5 mcg/actuation HFA aerosol inhaler 2 puff INHALATION BID Qty: 10.2 RF: 3 warfarin 5 mg tablet 5 mg PO QDAY Qty: 90 RF: 1 warfarin 2 mg tablet 2 mg PO .COMPLEX Qty: 30 RF: 0 buspirone 7.5 mg tablet 7.5 mg PO BID Qty: 60 RF: 2 potassium chloride 20 mEq tablet extended release 20 meq PO DAILY Qty: 90 RF: 3 Hold Instructions: 02/21/2021 trazodone 100 mg tablet 100 mg PO QHS PRN (Reason: sleep) Qty: 30 RF: 2 isosorbide mononitrate 30 mg tablet extended release 24 hr 30 mg PO QHS Qty: 30 RF: 12 furosemide [Lasix] 40 mg tablet 40 mg PO DAILY Qty: 90 RF: 3 albuterol sulfate 1.25 mg/3 mL solution for nebulization 1.25 mg INHALATION Q6H Qty: 180 RF: 4 montelukast 10 mg tablet 10 mg PO DAILY Qty: 30 RF: 3 carvedilol [Coreg] 3.125 mg tablet 3.125 mg PO BID Qty: 60 RF: 11 Primary Care Provider: Romario Aguilar Referrals: Romario Aguilar DO [Primary Care Provider] - Meghan Ashford MD [STAFF PHYSICIAN] - As soon as possible (Please call the office to make a follow-up appointment for soon as possible.) Disposition Disposition: Home, self care
[2021-03-30] MEDS: Ipratropium/Albuterol Sulfate 3 ML AMPUL.NEB INHALATION (16:52)
[2021-03-30 17:02] LABS: Absolute Lymphocyte Count 1.79 X10^3/uL (0.83-4.51); Absolute Neutrophil Count 5.8 X10^3/uL (2.0-7.7); Basophil# 0.06 X10^3/uL; Basophil% 0.7 % (0-1); Eosinophil# 0.23 X10^3/uL; Eosinophils% 2.7 % (0-5); Hematocrit 34.4 % (37-47); Hemoglobin 10.1 g/dL (12.0-15.0); Lymphocyte # 1.79 X10^3/ul (0.83-4.51); Lymphocyte % 20.8 % (19-41); Mean Corp Hgb Conc 29.4 g/dL (32-36); Mean Corpuscular Hgb 27.8 pg (27.0-32.0); Mean Corpuscular Volume 94.8 fL (81-99); Mean Platelet Vol. 9.3 fl (6.2-12.0); Monocyte# 0.67 X10^3/uL; Monocyte% 7.8 % (0-10); NRBC Flagged by Analyzer 0 % (0-5); Neutrophil % 67.5 % (47-70); Platelet Count 429 K/mm3 (150-450); RBC Distribution Width CV 13.6 % (11.6-14.6); RBC Distribution Width SD 47.3 fl (35.1-43.9); Red Blood Count 3.63 M/mm3 (4.2-5.4); White Blood Count 8.6 K/mm3 (4.4-11.0)
[2021-03-30 17:06] LABS: Anion Gap 1 (5-15); BUN 13 mg/dL (7-18); BUN/Creat Ratio 14.2 RATIO (10-20); Calcium,Total 9.2 mg/dL (8.5-10.1); Chloride 100 mmol/L (98-107); Creatinine, Serum 0.91 mg/dL (0.55-1.02); EST Glomerular Filtration Rate 64 mL/min (>60); Est Glom Filt Rate - Afr Amer 78 mL/min (>60); Estimated Creatinine Clearance 42.79 ml/min; Glucose 104 mg/dL (74-106); Potassium 4.3 mmol/L (3.5-5.1); Sodium Level 138 mmol/L (136-145)
[2021-03-30 17:21] LABS: International Normalized Ratio 1.8; Prothrombin Time (Protime)PT. 20.4 SECONDS (11.7-14.9)
== END 2021-03-30 18:05 | disposition home or self-care (01) ==
PROVIDERS: Emergency Provider Emergency Medicine; PCP Family Medicine
DX: N95.0 Postmenopausal bleeding (principal); I25.10 Atherosclerotic heart disease of native coronary artery without angina pectoris; J44.9 Chronic obstructive pulmonary disease, unspecified; I10 Essential (primary) hypertension; G47.00 Insomnia, unspecified; I89.0 Lymphedema, not elsewhere classified; E66.9 Obesity, unspecified; Z79.82 Long term (current) use of aspirin; Z79.01 Long term (current) use of anticoagulants; Z79.899 Other long term (current) drug therapy; Z86.73 Personal history of transient ischemic attack (TIA), and cerebral infarction without residual deficits; Z87.891 Personal history of nicotine dependence
CPT/HCPCS: 80048; 85025; 85610; 94640; 99283; A4216

== ENCOUNTER 2021-04-26 20:32 | Inpatient (IN) | payer MEDICARE, MEDICAID, SELFPAY ==
[2021-03-30 15:39] VITALS: BMI 43.4
[2021-04-26] VITALS (7 sets, daily range): BP systolic 113–131; BP diastolic 45–108; PULSE 106–133; RESP 24–31; TEMP 36.3–36.4; O2SAT 82–97; BMI 43.4
--- NOTE | 2021-04-26 20:51 | EKG12_ITS ---
Test Reason : SOB Blood Pressure : / mmHG Vent. Rate : 119 BPM Atrial Rate : 119 BPM P-R Int : 162 ms QRS Dur : 096 ms QT Int : 300 ms P-R-T Axes : 079 059 167 degrees QTc Int : 422 ms Sinus tachycardia Marked ST abnormality, possible lateral subendocardial injury Abnormal ECG Confirmed by MARCIO GILES, AR ([id number]), editorial project manager DIVYA THOMPSON ([id number]) on 04/27/2021 10:23:19 AM Referred By: JAQUELINE Confirmed By:AR BUCKLEY MD
--- NOTE | 2021-04-26 20:51 | CT_ITS ---
STUDY: CT BRAIN WITHOUT CONTRAST REASON FOR EXAM: Female, 70 years old. ams RADIATION DOSAGE (If Supplied By Facility): CTDIvol = ( 44.99 ) mGy, DLP = ( 796.11 ) mGycm TECHNIQUE: Transaxial CT imaging of the brain was performed without administration of intravenous contrast material. Individualized dose optimization techniques were used for this CT. COMPARISON: No relevant priors. FINDINGS: Normal soft tissue structures. Normal calvarium. Normal size ventricles and extra-axial spaces for the patient''s age. There is a left encephalomalacia in the MCA distribution. Normal white matter tracts of the cerebral hemispheres. Normal basal ganglia and thalami. Normal brainstem. Normal cerebellum. There is no intracranial hemorrhage. There are no findings of an acute ischemic infarction. Normal visualized paranasal sinuses. CT/Brain/Head without Contrast IMPRESSION: Left cerebral encephalomalacia. Electronically Signed: Romel Escudero DO at 22:23 EDT Tel [phone], Service support ,
[2021-04-26 21:09] LABS: Absolute Lymphocyte Count 4.26 X10^3/uL (0.83-4.51); Absolute Neutrophil Count 8.3 X10^3/uL (2.0-7.7); Basophil# 0.09 X10^3/uL; Basophil% 0.7 % (0-1); Eosinophil# 0.34 X10^3/uL; Eosinophils% 2.5 % (0-5); Hematocrit 34.8 % (37-47); Hemoglobin 10.3 g/dL (12.0-15.0); Lymphocyte # 4.26 X10^3/ul (0.83-4.51); Lymphocyte % 30.8 % (19-41); Mean Corp Hgb Conc 29.6 g/dL (32-36); Mean Corpuscular Hgb 27.8 pg (27.0-32.0); Mean Corpuscular Volume 93.8 fL (81-99); Mean Platelet Vol. 9.3 fl (6.2-12.0); Monocyte# 0.83 X10^3/uL; NRBC Flagged by Analyzer 0 % (0-5); Neutrophil # 8.25 X10^3/uL (2.7-7.7); Neutrophil % 59.6 % (47-70); Platelet Count 433 K/mm3 (150-450); RBC Distribution Width CV 13.5 % (11.6-14.6); RBC Distribution Width SD 46.5 fl (35.1-43.9); Red Blood Count 3.71 M/mm3 (4.2-5.4); White Blood Count 13.8 K/mm3 (4.4-11.0)
[2021-04-26] MEDS: Ipratropium/Albuterol Sulfate 3 ML AMPUL.NEB INHALATION (21:15)
--- NOTE | 2021-04-26 21:20 | RAD_ITS ---
STUDY: X-RAY CHEST REASON FOR EXAM: Female, 70 years old. Altered mental status. Left arm pain. Patient states brain can''t tell her body within the central lymph nodes by family at 1600. History of prior CVA with aphasia. TECHNIQUE: Single AP portable view of the chest. COMPARISON: 11/07/2020. FINDINGS: The lungs are well-expanded. There is no new mass or infiltrate. There is persistent mild peribronchial thickening unchanged from prior study. There is no demonstrated pleural abnormality. Normal size heart. Normal mediastinum and tommy. Normal visualized pulmonary arteries. Normal visualized aortic arch and descending thoracic aorta. Normal visualized thoracic spine. Normal visualized ribs, clavicles, and shoulders. There is no demonstrated abnormality of the visualized soft tissue structures of the upper abdomen. RAD/Chest 1 View (Portable) IMPRESSION: Chronic bronchitic changes without acute cardiopulmonary disease. Electronically Signed: Abhijit Bailon DO at 21:49 EDT Tel [phone], Service support ,
[2021-04-26 21:29] LABS: ALB/GLOB Ratio 0.9 RATIO (0.9-2.4); AST(SGOT) 26 U/L (15-37); Alanine Aminotransfer ALT/SGPT 16 U/L (13-56); Albumin, Serum 3.8 g/dL (3.2-5.0); Alkaline Phosphatase 112 U/L (45-117); Anion Gap 3 (5-15); BUN 28 mg/dL (7-18); BUN/Creat Ratio 25.5 RATIO (10-20); Calcium,Total 9.1 mg/dL (8.5-10.1); Chloride 104 mmol/L (98-107); EST Glomerular Filtration Rate 52 mL/min (>60); Est Glom Filt Rate - Afr Amer 63 mL/min (>60); Globulin 4.3 g/dL (2.2-4.2); Glucose 126 mg/dL (74-106); Potassium 5.1 mmol/L (3.5-5.1); Protein, Total 8.1 g/dL (6.4-8.2); Sodium Level 137 mmol/L (136-145)
[2021-04-26 21:30] LABS: Lactic Acid 0.7 mmol/L (0.4-1.9)
[2021-04-26 21:51] LABS: International Normalized Ratio 1.9; Partial Thromboplast Time 34.9 Seconds (24.1-36.2); Prothrombin Time (Protime)PT. 20.7 SECONDS (11.7-14.9)
[2021-04-26] MEDS: MethylPREDNISolone 125 MG/2 ML Vial IV (21:53)
[2021-04-26 22:59] LABS: Mucous, Urine 0 SEEN /hpf (<or=2+)
[2021-04-26 23:01] LABS: Color, Urine Yellow (Yellow); Glucose, Dipstick Normal (Normal); Ketone-Dipstick Negative (Negative); Leukocyte Esterase-Dipstick 500 /ul (Negative); Nitrite-Dipstick Positive (Negative); Occult Blood-Urine 25 /ul (Negative); Protein-Dipstick 30 mg/dl (Negative); Urine Bilirubin Dipstick Negative (Negative); Urine Clarity Sl. Cloudy (Clear); Urine Urobilinogen Normal (Normal)
[2021-04-26 23:08] LABS: White Blood Cells 50-100 SEEN /hpf (0-5)
[2021-04-26 23:09] LABS: Bacteria 2+ /hpf (None Seen); Red Blood Cells-Urine 0-5 SEEN /hpf (0-5); Squamous Epithelial Cells - UA 0-5 SEEN /hpf (5-10)
[2021-04-26] MEDS: Furosemide 40 MG/4 ML Vial IV (23:21)
--- NOTE | 2021-04-26 23:46 | EDS_ITS ---
HPI History of Present Illness Chief Complaint: Shortness of Breath Informant: patient and family Onset/Context/Timing Onset: Today Context: Gradual Onset Timing: Continuous Current Severity: Moderate Worsened by: Exertion Relieved by: Rest Associated Symptoms Associated Symptoms: Trouble with walking and balance Narrative Narrative: Patient has history of COPD and is on 3 L at baseline. She reports shortness of breath. She also has a history of stroke with subsequent aphasia that is at her baseline. She does report some new trouble walking and unsteadiness. The symptoms are intermittent. No vision changes. No facial droop. No numbness. No unilateral weakness. [facility] Medical History (Updated 04/27/21 @ 00:[address] Joan Duncan MD) Atherosclerotic heart disease of [place] coronary artery without angina pectoris Chronic bronchitis COPD (chronic obstructive pulmonary disease) Dysphasia Essential hypertension History of CVA (cerebrovascular accident) History of successful cardiopulmonary resuscitation Insomnia Lymphedema Obesity Home Medications aspirin 81 mg tablet,delayed release 81 mg PO QDAY 03/25/18 [History Last Taken 08/22/20] home oxygen #1 ea 08/24/20 [Rx Last Taken Unknown] lisinopril 10 mg tablet 10 mg PO QDAY #90 tab 08/24/20 [Rx Last Taken Unknown] albuterol sulfate 1.25 mg/3 mL solution for nebulization 1.25 mg INHALATION Q6H #90 vial 11/01/20 [Rx Last Taken Unknown] nebulizer #1 ea 11/01/20 [Rx Last Taken Unknown] albuterol sulfate 1.25 mg/3 mL solution for nebulization 1.25 mg INHALATION Q6H #180 ml 11/16/20 [Rx Last Taken Unknown] simvastatin 40 mg tablet 40 mg PO QAM #90 tab 12/06/20 [Rx Last Taken Unknown] budesonide-formoterol HFA 160 mcg-4.5 mcg/actuation aerosol inhaler 2 puff INHALATION BID #10.2 g 01/10/21 [Rx Last Taken Unknown] tiotropium bromide 2.5 mcg/actuation mist for inhalation 2 puff INHALATION QDAY #4 g 01/10/21 [Rx Last Taken Unknown] warfarin 2 mg tablet 2 mg PO .COMPLEX #30 tab 01/10/21 [Rx Last Taken Unknown] warfarin 5 mg tablet 5 mg PO QDAY #90 tab 01/10/21 [Rx Last Taken Unknown] carvedilol 3.125 mg tablet 3.125 mg PO BID #60 tab 01/24/21 [Rx Last Taken Unknown] furosemide 40 mg tablet 40 mg PO DAILY #90 tablet 02/21/21 [Rx Last Taken Unknown] trazodone 100 mg tablet 100 mg PO QHS PRN #30 tablet 02/21/21 [Rx Last Taken Unk nown] isosorbide mononitrate 30 mg tablet,extended release 24 hr 30 mg PO QHS #30 tablet 03/01/21 [Rx Last Taken Unknown] montelukast 10 mg tablet 10 mg PO DAILY #30 tab 04/16/21 [Rx Last Taken Unknown] buspirone 7.5 mg tablet 7.5 mg PO BID #60 tab 04/20/21 [Rx Last Taken Unknown] Allergy/AdvReac Type Severity Reaction Status Date / Time metal Allergy Severe Rash Uncoded 04/26/21 20:38 Family History Brother Heart disease Father Cancer Grandfather Cancer Sister Diabetes Surgical History History of appendectomy History of left heart catheterization History of tonsillectomy Social History Smoking Status: Former smoker quit date: 12/01/19 pack-years: 55 alcohol intake: never substance use type: does not use what type of physical activity do you participate in: none ROS ROS ED Constitutional Constitutional ED: Denies chills or fever(s) Eyes Eyes: Denies change in vision ENT ENT ED: Denies ear pain Cardiovascular Cardiovascular: Denies chest pain or palpitations Respiratory/Chest Respiratory/Chest: Reports dyspnea; Denies cough or sputum Gastrointestinal Gastrointestinal: Denies abdominal pain, nausea or vomiting Genitourinary Genitourinary ED: Denies dysuria, hematuria or urinary frequency Musculoskeletal Musculoskeletal: Denies arthralgias, back pain, myalgias or neck pain Integumentary Denies abscess, Abrasions or rash Neurologic Neurologic: Denies headache(s), paresthesias or weakness Psychiatric Psychiatric: Denies anxiety or depression Endocrine Endocrinology: Denies polydipsia or polyuria Allergic/Immunologic Allergic/Immunologic ED: Denies urticaria EXAM Physical Exam Const Vital Signs: 04/26/21 20:33 04/26/21 21:01 04/26/21 21:15 Temperature 97.6 F L Temperature Source Temporal Pulse Rate 133 H 115 H 114 H Respiratory Rate 30 H 31 H 28 H Respiratory Effort Respiratory Depth Respiratory Pattern Tachypnea Blood Pressure 131/108 H 120/102 H Blood Pressure Mean 115 108 Pulse Ox 82 96 Oxygen Delivery Method Nasal Cannula Nasal Cannula Oxygen Flow Rate (L/min) 3 6 04/26/21 22:00 04/26/21 22:51 04/26/21 23:21 Temperature 97.3 F L 97.3 F L Temperature Source Temporal Temporal Pulse Rate 106 H 108 H Respiratory Rate 26 H 24 H Respiratory Effort Short of Breath Labored Respiratory Depth Respiratory Pattern Blood Pressure 128/45 H 113/58 L Blood Pressure Mean 72 76 Pulse Ox 96 97 Oxygen Delivery Method Nasal Cannula Nasal Cannula Oxygen Flow Rate (L/min) 4 4 04/26/21 23:48 04/27/21 00:09 Temperature Temperature Source Pulse Rate 123 H Respiratory Rate 30 H 28 H Respiratory Effort Short of Breath Respiratory Depth Shallow Respiratory Pattern Tachypnea Tachypnea Blood Pressure Blood Pressure Mean Pulse Ox 96 Oxygen Delivery Method Nasal Cannula Oxygen Flow Rate (L/min) 4 Positive well nourished and well developed General Appearance ED: well developed HEENT Negative for trauma Eyes EOMs intact bilaterally Neck supple Resp normal respiratory effort Auscultation: wheezes Cardio Rate: tachycardic GI normal to inspection, nondistended, normoactive bowel sounds, non-tender and non-distended Palpation: soft Extremity Negative for normal to inspection General Extremety ED: Yes edema; Negative for tenderness General Extremity: edema Neuro oriented x3, CN's II-XII intact bilaterally and no sensory deficits noted Sensorium / Orientation: alert Motor Exam: strength 5/5 throughout; Negative for general weakness or strength abnormal Psych mental status grossly normal Skin no rashes or lesions noted MDM MDM MDM Narrative Medical decision making narrative: Patient presents with multiple complaints. She is slightly tachycardic. Slightly hypoxic. She responded to an increase in her nasal cannula to 6 L from her baseline at 3 L. EKG showed sinus tachycardia. There is some ST depression laterally. No sign of infarction. Patient has no chest pain. She was treated with aspirin. Initial troponin was 0.13. CT brain showed left-sided encephalomalacia. No sign of acute abnormalities. Patient has an unsteady gait per history, her symptoms are intermittent. She is not a candidate for TPA. She is on Coumadin. She has a white count of 13.8. This meets criteria for sepsis based on her heart rate. Her lactate was normal. Cultures are pending. She was found to have a UTI and was treated with Rocephin. Patient's lower extremities show edema. She also received a dose of Lasix. Patient will need further cardiac testing and evaluation. She will need care for her UTI. I have low suspicion for stroke. Her repeat pulse ox is improved. She was able to be weaned to her baseline nasal cannula 3 L after her treatment. Patient was discussed with the hospitalist and will be admitted for further care. Lab Data Attestation: I reviewed the patient's lab results. Labs: Laboratory Results - last 24 hr 04/26/21 04/26/21 04/26/21 20:55 20:55 20:55 WBC 13.8 H RBC 3.71 L Hgb 10.3 L Hct 34.8 L MCV 93.8 MCH 27.8 MCHC 29.6 L RDW Std Deviation 46.5 H RDW Coeff of Huyen 13.5 Plt Count 433 MPV 9.3 Immature Gran % (Auto) 0.400 Neut % (Auto) 59.6 Lymph % (Auto) 30.8 Lares % (Auto) 6.0 Eos % (Auto) 2.5 Baso % (Auto) 0.7 Absolute Neuts (auto) 8.3 H Absolute Lymphs (auto) 4.26 Nucleated RBC % 0 PT Cancelled INR Cancelled APTT Cancelled Sodium 137 Potassium 5.1 Chloride 104 Carbon Dioxide 30.0 Anion Gap 3 L BUN 28 H Creatinine 1.10 H Estim Creat Clear Calc 35.40 Est GFR (MDRD) Af Amer 63 Est GFR (MDRD) Non-Af 52 L BUN/Creatinine Ratio 25.5 H Glucose 126 H Lactic Acid Calcium 9.1 Total Bilirubin 0.10 L AST 26 ALT 16 Alkaline Phosphatase 112 Troponin I 0.132 H Total Protein 8.1 Albumin 3.8 Globulin 4.3 H Albumin/Globulin Ratio 0.9 Urine Color Urine Clarity Urine pH Ur Specific [place] Urine Protein Urine Glucose (UA) Urine Ketones Urine Occult Blood Urine Nitrite Urine Bilirubin Urine Urobilinogen Ur Leukocyte Esterase Urine RBC Urine WBC Ur Squamous Epith Cells Urine Bacteria Urine Mucus 04/26/21 04/26/21 04/26/21 20:55 21:37 22:53 WBC RBC Hgb Hct MCV MCH MCHC RDW Std Deviation RDW Coeff of [place] Plt Count MPV Immature Gran % (Auto) Neut % (Auto) Lymph % (Auto) Lares % (Auto) Eos % (Auto) Baso % (Auto) Absolute Neuts (auto) Absolute Lymphs (auto) Nucleated RBC % PT 20.7 H INR 1.9 APTT 34.9 Sodium Potassium Chloride Carbon Dioxide Anion Gap BUN Creatinine Estim Creat Clear Calc Est GFR (MDRD) Af Amer Est GFR (MDRD) Non-Af BUN/Creatinine Ratio Glucose Lactic Acid 0.7 Calcium Total Bilirubin AST ALT Alkaline Phosphatase Troponin I Total Protein Albumin Globulin Albumin/Globulin Ratio Urine Color Yellow Urine Clarity Sl. Cloudy Urine pH 6.0 Ur Specific [place] 1.020 Urine Protein 30 H Urine Glucose (UA) Normal Urine Ketones Negative Urine Occult Blood 25 H Urine Nitrite Positive H Urine Bilirubin Negative Urine Urobilinogen Normal Ur Leukocyte Esterase 500 H Urine RBC 0-5 SEEN Urine WBC 50-100 SEEN Ur Squamous Epith Cells 0-5 SEEN Urine Bacteria 2+ Urine Mucus 0 SEEN Radiography Chest X-Ray - ED: 1 View, Read by ED Physician and Chronic Changes Diagnostic Testing: Radiology Impression Brain CT 04/26/21 20:51 IMPRESSION: Left cerebral encephalomalacia. Electronically Signed: Romel Escudero DO at 22:23 EDT Tel [phone], Service support , Chest X-Ray 04/26/21 21:20 IMPRESSION: Chronic bronchitic changes without acute cardiopulmonary disease. Electronically Signed: Abhijit Bailon DO at 21:49 EDT Tel [phone], Service support , EKG Initial EKG: Comments: Sinus rhythm at a rate of [address] depression. No infarction pattern. Critical Care Time Critical care time (excluding procedures): 30-74 minutes (40 mins), Discussing w/Patient &/or Family/Critical Power Technician, Discussing w/Consultants, Arranging Admission or Transfer and Performing Direct Patient Care at Bedside Discharge Plan Triage Chief Complaint: Shortness of Breath Other Complaint: Neuro S/Sx ED Provider: Codey Johnson Dx/Rx/DC Orders Clinical Impression: Sepsis, COPD (chronic obstructive pulmonary disease), Acute UTI, Elevated troponin, Nonspecific ST-T wave electrocardiographic changes Primary Care Provider: Romario Aguilar
[2021-04-26] MEDS: Albuterol 2.5 MG/3 ML VIAL.NEB. INHALATION (23:48)
[2021-04-27] VITALS (31 sets, daily range): BP systolic 93–169; BP diastolic 55–132; PULSE 96–136; RESP 10–40; TEMP 36.2–36.9; O2SAT 94–100; BMI 43.5
--- NOTE | 2021-04-27 00:20 | HP.PCM.HOS_ITS ---
[facility] - General General Date of Admission: 04/27/21 Date of Service: 04/27/21 Chief Complaint: Left arm pain, shortness of breath, imbalance. [facility] Narrative DEDRICK BUSTILLO, is a 70 F with past medical history as mentioned below presented to the emergency room because of multiple complaints. The patient has history of stroke with dysarthria and was not able to provide consistent history. She was anxious and agitated. She was able to answer few simple questions. Reportedly, patient was brought to the emergency department by her sister because of trouble walking and imbalance. Patient sister informed the nursing staff in the ED that patient has been having trouble walking and unsteadiness and the symptoms has been intermittent and this is new to her. She did have a history of stroke with subsequent dysarthria/aphasia and she has been on Coumadin for that. The patient complains of left arm pain that started yesterday evening and she was not able to provide any more details about this pain. When I asked her about her shortness of breath if it is at her baseline or getting worse, she started crying. She denies any chest pain, palpitation, dizziness or lightheadedness. There was no family members at the bedside when I saw the patient. She will history of COPD with chronic hypoxic respiratory failure and she has been on oxygen at 3 L and upon arrival to ED, she was up to 6 L of oxygen. She will history of stroke and apparently, recurrent stroke and she mentioned that she has been on Coumadin for stroke. She listed hypertension and she has been on nitrates, lisinopril and Coreg. In the emergency department, she was afebrile, tachycardic, blood pressure was stable, was dyspneic and tachypneic and initially required up to 6 L of oxygen. Routine blood work was remarkable for leukocytosis, hemoglobin of 10.3. LFT was unremarkable. EKG revealed sinus tachycardia, ST segment depression in lateral chest leads, no acute ST elevation. Urinalysis revealed cloudy urine, positive for nitrite, leukocyte esterase, there was 50-100 WBCs and 2+ bacteria. CT scan brain showed no acute infarct or hemorrhage. Chest x-ray showed no acute infiltrate or consolidation. She is being admitted for acute COPD exacerbation, sepsis secondary to acute cystitis and abnormal cardiac enzymes. [facility] Medical History (Updated 04/27/21 @ 00:[address] Joan Duncan MD) Atherosclerotic heart disease of [place] coronary artery without angina pectoris Chronic bronchitis COPD (chronic obstructive pulmonary disease) Dysphasia Essential hypertension History of CVA (cerebrovascular accident) History of successful cardiopulmonary resuscitation Insomnia Lymphedema Obesity Home Medications aspirin 81 mg tablet,delayed release 81 mg PO QDAY 03/25/18 [History Last Taken 08/22/20] home oxygen #1 ea 08/24/20 [Rx Last Taken Unknown] lisinopril 10 mg tablet 10 mg PO QDAY #90 tab 08/24/20 [Rx Last Taken Unknown] albuterol sulfate 1.25 mg/3 mL solution for nebulization 1.25 mg INHALATION Q6H #90 vial 11/01/20 [Rx Last Taken Unknown] nebulizer #1 ea 11/01/20 [Rx Last Taken Unknown] albuterol sulfate 1.25 mg/3 mL solution for nebulization 1.25 mg INHALATION Q6H #180 ml 11/16/20 [Rx Last Taken Unknown] simvastatin 40 mg tablet 40 mg PO QAM #90 tab 12/06/20 [Rx Last Taken Unknown] budesonide-formoterol HFA 160 mcg-4.5 mcg/actuation aerosol inhaler 2 puff INHALATION BID #10.2 g 01/10/21 [Rx Last Taken Unknown] tiotropium bromide 2.5 mcg/actuation mist for inhalation 2 puff INHALATION QDAY #4 g 01/10/21 [Rx Last Taken Unknown] warfarin 2 mg tablet 2 mg PO .COMPLEX #30 tab 01/10/21 [Rx Last Taken Unknown] warfarin 5 mg tablet 5 mg PO QDAY #90 tab 01/10/21 [Rx Last Taken Unknown] carvedilol 3.125 mg tablet 3.125 mg PO BID #60 tab 01/24/21 [Rx Last Taken Unknown] furosemide 40 mg tablet 40 mg PO DAILY #90 tablet 02/21/21 [Rx Last Taken Unknown] trazodone 100 mg tablet 100 mg PO QHS PRN #30 tablet 02/21/21 [Rx Last Taken Unknown] isosorbide mononitrate 30 mg tablet,extended release 24 hr 30 mg PO QHS #30 tabl et 03/01/21 [Rx Last Taken Unknown] montelukast 10 mg tablet 10 mg PO DAILY #30 tab 04/16/21 [Rx Last Taken Unknown] buspirone 7.5 mg tablet 7.5 mg PO BID #60 tab 04/20/21 [Rx Last Taken Unknown] Allergy/AdvReac Type Severity Reaction Status Date / Time metal Allergy Severe Rash Uncoded 04/26/21 20:38 Family History Brother Heart disease Father Cancer Grandfather Cancer Sister Diabetes Surgical History History of appendectomy History of left heart catheterization History of tonsillectomy Social History Smoking Status: Former smoker quit date: 12/01/19 pack-years: 55 alcohol intake: never substance use type: does not use what type of physical activity do you participate in: none ROS Constitutional Constitutional: Denies anorexia, chills, fatigue or fever(s) Eyes Eyes: Denies blurry vision, change in vision, double vision or eye pain ENT HEENT: Denies ear pain, epistaxis, headache(s), nasal congestion, post nasal drip or sore throat Cardiovascular Cardiovascular: Reports dyspnea on exertion and orthopnea; Denies chest pain, edema, lightheadedness, palpitations or syncope Respiratory/Chest Respiratory/Chest: Reports cough, dyspnea, shortness of breath at rest, shortness of breath with exertion and wheezing; Denies hemoptysis or productive cough Gastrointestinal Gastrointestinal: Denies abdominal pain, constipation, diarrhea, hematemesis, hematochezia, melena, nausea or vomiting Genitourinary Genitourinary: Denies burning urination, dysuria, hematuria, urinary hesitancy or urinary urgency Musculoskeletal Musculoskeletal: Reports other Details: Reported left arm pain. ; Denies arthralgias, back pain, joint pain, joint swelling, myalgias or neck pain Neurologic Neurologic: Denies dizziness, focal weakness, headache(s), numbness, paresthesias, seizures, tingling or tremor(s) Psychiatric Psychiatric: Reports anxiety; Denies depression, hallucinations, homicidal ideation or suicidal ideation Endocrine Endocrinology: Denies change in body appearance, cold intolerance, heat intolerance, polydipsia or polyuria Hematologic/Lymphatic Hematologic/Lymphatic: Denies easy bleeding, easy bruising or lymphadenopathy Allergic/Immunologic Allergic/Immunologic: Denies itchy eyes, rhinitis, throat swelling, tongue swelling, hives, urticaria or wheezing Vital Signs Vital Signs Vital Signs: 04/26/21 20:33 04/26/21 21:01 04/26/21 21:15 Temperature 97.6 F L Temperature Source Temporal Pulse Rate 133 H 115 H 114 H Respiratory Rate 30 H 31 H 28 H Respiratory Effort Respiratory Depth Respiratory Pattern Tachypnea Blood Pressure 131/108 H 120/102 H Blood Pressure Mean 115 108 Pulse Ox 82 96 Oxygen Delivery Method Nasal Cannula Nasal Cannula Oxygen Flow Rate (L/min) 3 6 04/26/21 22:00 04/26/21 22:51 04/26/21 23:21 Temperature 97.3 F L 97.3 F L Temperature Source Temporal Temporal Pulse Rate 106 H 108 H Respiratory Rate 26 H 24 H Respiratory Effort Short of Breath Labored Respiratory Depth Respiratory Pattern Blood Pressure 128/45 H 113/58 L Blood Pressure Mean 72 76 Pulse Ox 96 97 Oxygen Delivery Method Nasal Cannula Nasal Cannula Oxygen Flow Rate (L/min) 4 4 04/26/21 23:48 04/27/21 00:09 Temperature Temperature Source Pulse Rate 123 H Respiratory Rate 30 H 28 H Respiratory Effort Short of Breath Respiratory Depth Shallow Respiratory Pattern Tachypnea Tachypnea Blood Pressure Blood Pressure Mean Pulse Ox 96 Oxygen Delivery Method Nasal Cannula Oxygen Flow Rate (L/min) 4 Weight Weight: 229 lb 15.991 oz Body Mass Index (BMI) 43.4 Physical Exam Const alert and no limitations Constitutional Narrative: Moderate short of breath, anxious. General Appearance: cooperative, comfortable and well kempt HEENT normocephalic, head/scalp atraumatic and moist oral mucous membranes Head and Scalp: normocephalic and atraumatic Eyes PERRL, EOMs intact bilaterally, conjunctivae normal and no scleral icterus General Eye: normal appearance of both eyes Periorbital: periorbital findings normal Neck no lymphadenopathy, supple, no meningeal signs, no JVD and no carotid bruits General: trachea midline Thyroid: thyroid normal Resp normal air movement Resp Narrative: Decreased breath sounds bilateral, bilateral expiratory wheezes, dyspneic and tachypneic. Auscultation: rhonchi and wheezes; Negative for crackles or rales Cardio regular rate, regular rhythm, S1 normal heart sound, S2 normal heart sound, no murmurs and no JVD Cardio Narrative: Tachycardia. Peripheral Pulses: pulses 2+ throughout GI normal to inspection, nondistended, normoactive bowel sounds, soft to palpation, non-tender and non-distended; Negative for hepatosplenomegaly GI Narrative: Obese. Auscultation: normoactive bowel sounds Extremity normal to inspection and full ROM Extremity Narrative: Nonpitting edema. Skin no rashes or lesions noted, no wounds and no petechiae Neuro CN's II-XII intact bilaterally and moves all extremities Neuro Narrative: Dysarthria. Sensorium / Orientation: alert Speech: speech normal Motor Exam: strength 5/5 throughout Psych mental status grossly normal, affect normal and denies hallucinations Mood & Affect: anxious Lab / Micro Data Result Diagrams: 04/26/21 20:55 04/26/21 20:55 Labs: Laboratory Results - last 24 hr 04/26/21 04/26/21 04/26/21 20:55 20:55 20:55 WBC 13.8 H RBC 3.71 L Hgb 10.3 L Hct 34.8 L MCV 93.8 MCH 27.8 MCHC 29.6 L RDW Std Deviation 46.5 H RDW Coeff of Huyen 13.5 Plt Count 433 MPV 9.3 Immature Gran % (Auto) 0.400 Neut % (Auto) 59.6 Lymph % (Auto) 30.8 Lamb % (Auto) 6.0 Eos % (Auto) 2.5 Baso % (Auto) 0.7 Absolute Neuts (auto) 8.3 H Absolute Lymphs (auto) 4.26 Nucleated RBC % 0 PT Cancelled INR Cancelled APTT Cancelled Sodium 137 Potassium 5.1 Chloride 104 Carbon Dioxide 30.0 Anion Gap 3 L BUN 28 H Creatinine 1.10 H Estim Creat Clear Calc 35.40 Est GFR (MDRD) Af Amer 63 Est GFR (MDRD) Non-Af 52 L BUN/Creatinine Ratio 25.5 H Glucose 126 H Lactic Acid Calcium 9.1 Total Bilirubin 0.10 L AST 26 ALT 16 Alkaline Phosphatase 112 Troponin I 0.132 H Total Protein 8.1 Albumin 3.8 Globulin 4.3 H Albumin/Globulin Ratio 0.9 Urine Color Urine Clarity Urine pH Ur Specific Henderson Urine Protein Urine Glucose (UA) Urine Ketones Urine Occult Blood Urine Nitrite Urine Bilirubin Urine Urobilinogen Ur Leukocyte Esterase Urine RBC Urine WBC Ur Squamous Epith Cells Urine Bacteria Urine Mucus 04/26/21 04/26/21 04/26/21 20:55 21:37 22:53 WBC RBC Hgb Hct MCV MCH MCHC RDW Std Deviation RDW Coeff of Huyen Plt Count MPV Immature Gran % (Auto) Neut % (Auto) Lymph % (Auto) Lamb % (Auto) Eos % (Auto) Baso % (Auto) Absolute Neuts (auto) Absolute Lymphs (auto) Nucleated RBC % PT 20.7 H INR 1.9 APTT 34.9 Sodium Potassium Chloride Carbon Dioxide Anion Gap BUN Creatinine Estim Creat Clear Calc Est GFR (MDRD) Af Amer Est GFR (MDRD) Non-Af BUN/Creatinine Ratio Glucose Lactic Acid 0.7 Calcium Total Bilirubin AST ALT Alkaline Phosphatase Troponin I Total Protein Albumin Globulin Albumin/Globulin Ratio Urine Color Yellow Urine Clarity Sl. Cloudy Urine pH 6.0 Ur Specific Henderson 1.020 Urine Protein 30 H Urine Glucose (UA) Normal Urine Ketones Negative Urine Occult Blood 25 H Urine Nitrite Positive H Urine Bilirubin Negative Urine Urobilinogen Normal Ur Leukocyte Esterase 500 H Urine RBC 0-5 SEEN Urine WBC 50-100 SEEN Ur Squamous Epith Cells 0-5 SEEN Urine Bacteria 2+ Urine Mucus 0 SEEN Micro: Microbiology 04/26/21 21:00 SARS-CoV-2 Antigen (Rapid) - Final Mucosa - Nasopharyngeal Radiology Impression Brain CT 04/26/21 20:51 IMPRESSION: Left cerebral encephalomalacia. Electronically Signed: Romel Escudero DO at 22:23 EDT Tel [phone], Service support , Chest X-Ray 04/26/21 21:20 IMPRESSION: Chronic bronchitic changes without acute cardiopulmonary disease. Electronically Signed: Abhijit Bailon DO at 21:49 EDT Tel [phone], Service support , Assessment & Plan Assessment/Plan (1) Ataxia: (2) Abnormal cardiac enzyme level: (3) Acute cystitis: (4) COPD with acute exacerbation: (5) Sepsis: (6) COPD (chronic obstructive pulmonary disease): (7) Atherosclerotic heart disease of [place] coronary artery without angina pectoris: QUALIFIERS: [place] vs. transplanted heart: [place] heart Qualified Code(s): I25.10 - Atherosclerotic heart disease of [place] coronary artery without angina pectoris (8) History of CVA (cerebrovascular accident): (9) Essential hypertension: (10) COPD (chronic obstructive pulmonary disease): QUALIFIERS: COPD type: chronic bronchitis Chronic bronchitis t ype: simple Qualified Code(s): J41.0 - Simple chronic bronchitis PLAN: This is a 70 years old female patient presented to the emergency room because of multiple complaints including unsteadiness and imbalance, shortness of breath and left arm pain, found to have acute COPD exacerbation, abnormal cardiac enzymes with EKG changes and also found to have acute cystitis with sepsis. #1 acute cystitis/sepsis: Admit to PCU, cardiac monitoring, blood culture, urine culture, start IV Rocephin, Tylenol as needed, Zofran as needed, repeat CBC and BMP tomorrow morning, PT OT evaluation and treatment. #2 acute COPD exacerbation: Initially, she was on oxygen up to 6 L, baseline is 3 L. Received IV Solu-Medrol in the ED. Chest x-ray reviewed, no acute findings. Plan: DuoNeb every 6 hours, albuterol as needed, start p.o. prednisone. #3 abnormal cardiac enzymes/questionable EKG changes: EKG reviewed as above, troponin is borderline. Patient denied chest pain but reported left arm pain. Plan: Cardiac monitoring, serial cardiac enzymes, repeat EKG tomorrow morning, #4 unsteadiness/imbalance/ataxia: No focal deficit on physical exam. Patient did have a history of stroke and she has been on Coumadin. History is very vague and unclear. CT scan brain showed no acute findings. Plan: MRI brain. #5 CAD: Plan as above, continue aspirin, statins, Coreg, lisinopril and isosorbide mononitrate. #6 history of stroke: Plan as above, continue aspirin and Coumadin, recheck INR tomorrow morning. #7 hypertension: Blood pressure stable, continue home medications. #8 COPD/chronic respiratory failure: She is on oxygen at 3 L at baseline, was on up to 6 L in the ED. Plan as above. #9 DVT prophylaxis: INR is 1.9, continue Coumadin. This note was generated with TiVoation software. It may contain incorrect words, spelling, and punctuation that were not noted in checking the note before signing. Visit Charges Inpatient E&M: 74453 Init Hosp L3
[2021-04-27] MEDS: Ceftriaxone 1 GM/50 ML BAG IV ×2 (00:39→21:46)
[2021-04-27] MEDS: Aspirin 325 MG Tablet PO (00:42)
--- NOTE | 2021-04-27 00:59 | MRI_ITS ---
STUDY: MRI BRAIN WITHOUT CONTRAST REASON FOR EXAM: Female, 70 years old. Imbalance, sepsis, confusion TECHNIQUE: Standardized multiplanar fat and water weighted pulse sequences were obtained. COMPARISON: CT April 26, 2021. FINDINGS: There is mild cerebral atrophy with widening of the extra-axial spaces and ventricular dilatation. There is left frontal and temporal volume loss with encephalomalacia consistent with prior middle cerebral artery territory infarct. There is no evidence for recent intracranial ischemia or other cause of cytotoxic edema on diffusion weighted imaging (DWI). Normal T2* images of the brain without demonstrated susceptibility artifact. There is no demonstrated hemosiderin stain. Normal bilateral basal ganglia. Normal thalami. There is no extra-axial fluid accumulation. Normal flow voids within the major intracranial circulation suggesting patency by spin echo criteria. There is enlargement of the sella turcica with increased CSF within the sella and flattening of the pituitary gland consistent with an empty sella. Normal infundibular stalk, hypothalamus, and optic chiasm. Normal tectal plate and pineal gland. Normal midbrain, greg and medulla. Normal cerebellum. Normal basal cisterns. Normal bilateral temporal bones. Normal bilateral internal auditory canals. No demonstrated orbital abnormality, within the constraints of a routine brain study. Normal visualized paranasal sinuses. Normal calvarium and skull base. Normal visualized soft tissue structures. Normal visualized upper cervical spine. MRI/Brain without Contrast IMPRESSION: Involutional changes of the brain, as described above. Electronically Signed: Oscar Petersen MD at 10:12 EDT , Service support ,
--- NOTE | 2021-04-27 00:59 | ECHOCS_ITS ---
Reason For Study: ABN EKG Procedure This was a 2D Doppler, Color Flow transthoracic echocardiogram. The study was technically difficult. PT sitting upright for exam. Contrast injection was performed. Exam performed portable in patient room. Left Ventricle Mildly dilated left ventricle. The estimated ejection fraction is EF 50% %. Right Ventricle Normal right ventricle. Mitral Valve The mitral valve is structurally normal. No prolapse or stenosis seen. Mild (1+) mitral valve insufficiency. Tricuspid Valve Normal tricuspid valve. Aortic Valve Aortic sclerosis, no stenosis. Trivial aortic valve insufficiency. Pulmonic Valve The pulmonic valve is not well visualized. Great Vessels Normal aortic root. Pericardium/Pleural Trivial pericardial effusion. Medication Diluted definity 3.0ml given slow IV push to enhance endocardial definition. MMode/2D Measurements & Calculations LVIDd: 5.2 cm IVSd: 1.0 cm LAV(MOD-bp): 42.2 ml LVIDs: 3.8 cm LVPWd: 1.0 cm LAV(MOD-bp) Indexed: 21.0 ml/m2 RVDd: 3.1 cm FS: 27.1 % LAV(MOD-sp2): 50.1 ml LAV(MOD-sp4): 35.5 ml LA dimension(2D): 3.5 cm LA A4 area: 14.6 cm2 Doppler Measurements & Calculations MV E max raul: 81.9 cm/sec Lat Peak E' Raul: 6.7 cm/sec Med Peak E' Raul: 4.9 cm/sec MV A max raul: 141.2 cm/sec E/E' lat: 12.2 E/E' med: 16.6 MV E/A: 0.58 Ao V2 max: 126.7 cm/sec LV V1 max: 93.4 cm/sec Ao max P.4 mmHg LV V1 max P.5 mmHg ECHO/Echo Complete W/ Contrast Interpretation Summary The estimated ejection fraction is EF 50% %. Mild LV systolic Dysfunction Mild Apical Hypokiesia Ordering Physician: Joan Duncan Referring Physician: Romario Aguilar Performed By: Lian Turcios, MITCHELL, RVT
[2021-04-27] MEDS: 0.9% Normal Saline 1,000 ML 100 ML IV (01:15)
[2021-04-27 03:56] LABS: Absolute Lymphocyte Count 0.77 X10^3/uL (0.83-4.51); Absolute Neutrophil Count 10.3 X10^3/uL (2.0-7.7); Basophil# 0.04 X10^3/uL; Basophil% 0.4 % (0-1); Hematocrit 35.4 % (37-47); Hemoglobin 10.5 g/dL (12.0-15.0); Lymphocyte # 0.77 X10^3/ul (0.83-4.51); Lymphocyte % 6.9 % (19-41); Mean Corp Hgb Conc 29.7 g/dL (32-36); Mean Corpuscular Hgb 27.6 pg (27.0-32.0); Mean Corpuscular Volume 93.2 fL (81-99); Mean Platelet Vol. 9.3 fl (6.2-12.0); Monocyte# 0.07 X10^3/uL; Monocyte% 0.6 % (0-10); NRBC Flagged by Analyzer 0 % (0-5); Neutrophil # 10.28 X10^3/uL (2.7-7.7); Neutrophil % 91.6 % (47-70); Platelet Count 417 K/mm3 (150-450); RBC Distribution Width CV 13.4 % (11.6-14.6); RBC Distribution Width SD 45.6 fl (35.1-43.9); White Blood Count 11.2 K/mm3 (4.4-11.0)
[2021-04-27 04:00] LABS: International Normalized Ratio 1.9; Prothrombin Time (Protime)PT. 20.7 SECONDS (11.7-14.9)
[2021-04-27 04:06] LABS: Anion Gap 3 (5-15); BUN 28 mg/dL (7-18); BUN/Creat Ratio 27.7 RATIO (10-20); Calcium,Total 9.3 mg/dL (8.5-10.1); Chloride 101 mmol/L (98-107); Creatinine, Serum 1.01 mg/dL (0.55-1.02); EST Glomerular Filtration Rate 57 mL/min (>60); Est Glom Filt Rate - Afr Amer 69 mL/min (>60); Estimated Creatinine Clearance 38.55 ml/min; Glucose 155 mg/dL (74-106); Sodium Level 137 mmol/L (136-145)
--- NOTE | 2021-04-27 04:28 | EKG12_ITS ---
Test Reason : SOB Blood Pressure : / mmHG Vent. Rate : 129 BPM Atrial Rate : 129 BPM P-R Int : 154 ms QRS Dur : 100 ms QT Int : 270 ms P-R-T Axes : 080 077 125 degrees QTc Int : 395 ms Somatic/Motion Artifact Sinus tachycardia ST & T wave abnormality, consider inferolateral ischemia Abnormal ECG Confirmed by ELIOT GILES, LUCY ([id number]), writer editor DIVYA THOMPSON ([id number]) on 05/01/2021 2:17:38 PM Referred By: DR NUNEZ Confirmed By:LUCY MCCABE MD
[2021-04-27] MEDS: LORazepam 0.5 MG Tablet PO (04:35)
[2021-04-27] MEDS: 0.9% Saline Lock 10 ML Syringe IV ×2 (04:37→17:23)
[2021-04-27] MEDS: Ipratropium/Albuterol Sulfate 3 ML AMPUL.NEB INHALATION ×4 (05:08→19:24)
--- NOTE | 2021-04-27 06:30 | EKG12_ITS ---
Test Reason : AM EKG Blood Pressure : / mmHG Vent. Rate : 106 BPM Atrial Rate : 106 BPM P-R Int : 152 ms QRS Dur : 102 ms QT Int : 364 ms P-R-T Axes : 075 048 118 degrees QTc Int : [address] & T wave abnormality, consider anterolateral ischemia Abnormal ECG When compared with ECG of 27-APR-2021 04:47, MANUAL COMPARISON REQUIRED, DATA IS UNCONFIRMED Confirmed by MARCIO GILES, AR ([id number]), scientific publications editor DIVYA THOMPSON ([id number]) on 05/01/2021 2:02:34 PM Referred By: ENRIQUE Confirmed By:AR BUCKLEY MD
--- NOTE | 2021-04-27 09:10 | NURSING ---
THIS RN CALLED TO MRI FOR PT WITH SOB. PT 78% ON 4L NC, RESP 40 WHILE SUPINE ON MRI TABLE FOLLOWING TRANSFER FROM INPATIENT BED. PT SAT UP. 02 INCREASED TO 6L AND SPO2 INCREASED TO 88%. PT SWITCHED TO NRB 15L. SP02 INCREASED TO 100%, RESP STILL AT 40, BUT FEELING LESS ANXIOUS. PT AGREES TO LAYING FLAT AGAIN
--- NOTE | 2021-04-27 09:37 | CASEMGMT ---
[facility] as follows: [facility], Michelle, CC, [facility], [facility], OS, [facility] ([facility]), and . Annie BSN RN CM
[2021-04-27] MEDS: busPIRone 5 MG Tablet 7.5 MG PO ×2 (09:48→21:45)
[2021-04-27] MEDS: Aspirin E.C. 81 MG Tablet PO (09:49)
[2021-04-27] MEDS: predniSONE 20 MG Tablet 40 MG PO (09:49)
[2021-04-27] MEDS: Lisinopril 10 MG Tablet PO (09:50)
[2021-04-27] MEDS: Montelukast 10 MG Tablet PO (09:50)
[2021-04-27] MEDS: Furosemide 40 MG Tablet PO (09:50)
[2021-04-27] MEDS: Carvedilol 3.125 MG TABLET PO ×2 (09:50→17:22)
--- NOTE | 2021-04-27 10:40 | CASEMGMT ---
JONAS MARTINEZ HOUSE NURSE CM to room to meet with patient for initial transition planning/care coordination assessment. RN JUAN introduced self and role at [facility].? Pt voices understanding and consents to assessment at this time.? Pt resting in bed w/BIPAP in place. Pt w/hx of CVA and has dysarthria. Sister/POA, Carmen, @ bedside and the following information was mostly obtained from her. Care providers, pharmacy, and demographics verified/updated at this time. PCP: Dr Romario Aguilar Specialists: Dr Mccoy--cardiology Preferred Pharmacy: [facility] Insurance: Daniela SALAMANCA Prescription Benefit:?Yes Living Will/HPOA:? Does not have LW. Does have [facility], who is her sister, Carmen. Carmen and pt both made aware copies are not on file @ [facility]. Carmen states she can have these brought in. LNOK: Sister, Carmen/PALMER. Dtr, Jamee. Living Arrangements: Lives w/her sister, Carmen, in one-story home w/no steps to enter. Pt able to bath/dress herself but Carmen states, It's difficult for her. It's a big chore. Carmen states pt does try to cook on occasion and manages her meds but sometimes gets confused, so Carmen helps. Carmen does home mgmt tasks and goes to all of pt's appts. Transportation: Pt does not drive. Carmen provides her transportation and denies transp concerns. DME: ?Has the following DME:? shower chair, hand held shower, rails/grab bars, Cane, nebulizer. O2 @ 3 L/M continuously thru [employer]. Pt sleeps in a recliner. Has a walker available, but does not usually use. She did have to use it yesterday. ?Denies need for further DME at this time.? HHC/SNF: No history of either. Carmen states pt has been declining for the past 6 months and that it has been difficult for pt to walk more than a couple of steps. Carmen states pt needs to go to a SNF, stating, She needs to learn to walk again. Pt is agreeable to SNF. ORVILLE Saba, made aware. PLAN: ?SNF. Annie MACKENZIE RN, CM
--- NOTE | 2021-04-27 10:49 | CASEMGMT ---
RN JUAN spoke with patient and her sister. They are thinking patient will need to go somewhere for rehab at discharge. ORVILLE printed a list of SNF providers including quality and resource use data and consistent with the patient?s preferred geographic region, medical needs, and insurance network. SW highlighted the facilities that take patient's insurance. ORVILLE met with patient and her sister. Introduced self and role at [facility]. SW gave them the lists for [facility] and [facility]. They thanked ORVILLE for the information. ORVILLE will continue to follow. Wandy TREADWELL
--- NOTE | 2021-04-27 11:57 | PCM.CONS.C ---
Assessment & Plan Assessment/Plan (1) Multi-vessel coronary artery stenosis: (2) COPD (chronic obstructive pulmonary disease): (3) Acute cystitis: (4) Dysphasia: (5) Atherosclerotic heart disease of [place] coronary artery without angina pectoris: QUALIFIERS: [place] vs. 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 Patient seen and evaluated today at bedside along with the nursing staff, sister at bedside was able to give detailed history Patient had no active symptoms of chest pain she still had symptoms of left arm pain and she has been on treatment for COPD. Patient has multivessel coronary artery atherosclerosis, last cardiac catheterization was in August 2020 I reviewed the angiographic findings Which revealed chronic total occlusion of RCA and nonobstructive atherosclerosis involving the proximal circumflex, left main normal angiographically and LAD at the nonobstructive atherosclerosis. Distal RCA was well collateralized from the left coronary system. On this admission patient has a elevated cardiac biomarkers with elevated high sensitive troponin to 2.8. Recommendation and plan; Review of the EKG showed underlying normal sinus with age indeterminate inferior AL, small Q waves noted in the inferior lead and also she had T wave inversion in the anterolateral leads. 1. We will resume the Coumadin to keep target INR 2.3 We will continue low-dose aspirin. 3. We will add Plavix to the current treatment, there is no history of active the bleed 4. On this presentation patient, has a non-ST elevation AL with elevated troponin up to 2.8, will continue to monitor the troponin 5. Echocardiogram to evaluate LV systolic function. 6. We will continue rest of her medication including the statin and beta-rema and long-acting nitrate. 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 HPI Consult Data Date of Consult: 04/27/21 HPI Narrative HPI Narrative: DEDRICK BUSTILLO, is a 70 F who presents, left arm discomfort No symptoms of chest pain. Patient known to have history of CAD, with chronic total occlusion of RCA Also has multiple recurrent stroke. Cardiac consultation requested because of elevated troponin with a clinical diagnosis of CAD/non-ST elevation AL. [facility] Medical History Atherosclerotic heart disease of [place] coronary artery without angina pectoris Chronic bronchitis COPD (chronic obstructive pulmonary disease) Dysphasia Essential hypertension Former smoker History of CVA (cerebrovascular accident) History of successful cardiopulmonary resuscitation Insomnia Lymphedema Obesity Home Medications aspirin 81 mg tablet,delayed release 81 mg PO QDAY 03/25/18 [History Last Taken 08/22/20] home oxygen #1 ea 08/24/20 [Rx Last Taken Unknown] lisinopril 10 mg tablet 10 mg PO QDAY #90 tab 08/24/20 [Rx Last Taken Unknown] albuterol sulfate 1.25 mg/3 mL solution for nebulization 1.25 mg INHALATION Q6H #90 vial 11/01/20 [Rx Last Taken Unknown] nebulizer #1 ea 11/01/20 [Rx Last Taken Unknown] albuterol sulfate 1.25 mg/3 mL solution for nebulization 1.25 mg INHALATION Q6H #180 ml 11/16/20 [Rx Last Taken Unknown] simvastatin 40 mg tablet 40 mg PO QAM #90 tab 12/06/20 [Rx Last Taken Unknown] budesonide-formoterol HFA 160 mcg-4.5 mcg/actuation aerosol inhaler 2 puff INHALATION BID #10.2 g 01/10/21 [Rx Last Taken Unknown] tiotropium bromide 2.5 mcg/actuation mist for inhalation 2 puff INHALATION QDAY #4 g 01/10/21 [Rx Last Taken Unknown] warfarin 2 mg tablet 2 mg PO .COMPLEX #30 tab 01/10/21 [Rx Last Taken Unknown] warfarin 5 mg tablet 5 mg PO QDAY #90 tab 01/10/21 [Rx Last Taken Unknown] carvedilol 3.125 mg tablet 3.125 mg PO BID #60 tab 01/24/21 [Rx Last Taken Unknown] furosemide 40 mg tablet 40 mg PO DAILY #90 tablet 02/21/21 [Rx Last Taken Unknown] trazodone 100 mg tablet 100 mg PO QHS PRN #30 tablet 02/21/21 [Rx Last Taken Unknown] isosorbide mononitrate 30 mg tablet,extended release 24 hr 30 mg PO QHS #30 tablet 03/01/21 [Rx Last Taken Unknown] montelukast 10 mg tablet 10 mg PO DAILY #30 tab 04/16/21 [Rx Last Taken Unknown] buspirone 7.5 mg tablet 7.5 mg PO BID #60 tab 04/20/21 [Rx Last Taken Unknown] Allergy/AdvReac Type Severity Reaction Status Date / Time metal Allergy Severe Rash Uncoded 04/26/21 20:38 Family History Brother Heart disease Father Cancer Grandfather Cancer Sister Diabetes Surgical History History of appendectomy History of left heart catheterization History of tonsillectomy Social History Smoking Status: Former smoker quit date: 12/01/19 pack-years: 55 alcohol intake: never substance use type: does not use what type of physical activity do you participate in: none ROS Constitutional Constitutional: Denies anorexia, chills, fatigue or fever(s) Eyes Eyes: Denies blurry vision, change in vision, double vision or eye pain ENT HEENT: Denies ear pain, epistaxis, headache(s), nasal congestion, post nasal drip or sore throat Cardiovascular Cardiovascular: Reports dyspnea on exertion and orthopnea; Denies chest pain, edema, lightheadedness, palpitations or syncope Respiratory/Chest Respiratory/Chest: Reports cough, dyspnea, shortness of breath at rest, shortness of breath with exertion and wheezing; Denies hemoptysis or productive cough Gastrointestinal Gastrointestinal: Denies abdominal pain, constipation, diarrhea, hematemesis, hematochezia, melena, nausea or vomiting Genitourinary Genitourinary: Denies burning urination, dysuria, hematuria, urinary frequency, urinary hesitancy or urinary urgency Musculoskeletal Musculoskeletal: Reports other Details: Reported left arm pain. ; Denies arthralgias, back pain, joint pain, joint swelling, myalgias or neck pain Integumentary Integumentary: Denies rash Neurologic Neurologic: Denies dizziness, focal weakness, headache(s), numbness, paresthesias, seizures, tingling, tremor(s) or weakness Psychiatric Psychiatric: Reports anxiety; Denies depression, hallucinations, homicidal ideation or suicidal ideation Endocrine Endocrinology: Denies change in body appearance, cold intolerance, heat intolerance, polydipsia or polyuria Hematologic/Lymphatic Hematologic/Lymphatic: Denies easy bleeding, easy bruising or lymphadenopathy Allergic/Immunologic Allergic/Immunologic: Denies itchy eyes, rhinitis, throat swelling, tongue swelling, hives, urticaria or wheezing Physical Exam Narrative This patient seen and examined today at bedside along with the nursing staff, sister at bedside was able to provide detailed history Cardiac rhythm is sinus rhythm S1-S2 regular there is no murmur. Chest examination she had bilateral inspiratory wheeze and rales. Examination abdomen is soft.
--- NOTE | 2021-04-27 11:59 | PN.HOSP_ITS ---
Documented by User: Shon WILLIAMSON 04/27/21 12:37 Subjective Subjective Patient is a 70-year-old female comfortably resting in bed, alert and oriented x3. Patient has a history of dysarthria, although can communicate through notes. Patient appeared acutely short of breath with swollen lower extremities. Objective Data Objective Data Vital Signs: Vital Signs Temp Pulse Resp BP Pulse Ox 98 F 110 H 29 H 163/132 H 100 04/27/21 09:47 04/27/21 11:25 04/27/21 11:25 04/27/21 09:47 04/27/21 11:25 Oxygen Flow Rate (L/min) 5 Oxygen Delivery Method Nasal Cannula Weight: 230 lb 6.129 oz Body Mass Index (BMI) 43.5 Intake & Output: Intake and Output for Last 24 Hours 04/25/21 04/26/21 04/27/21 23:59 23:59 23:59 Intake Total 913.33 / 913.33 Output Total 800 / 800 Balance 113.33 / 113.33 Lab / Micro Data Result Diagrams: 04/27/21 03:24 04/27/21 03:24 Labs: Laboratory Results - last 24 hr 04/26/21 04/26/21 04/26/21 20:55 20:55 20:55 WBC 13.8 H RBC 3.71 L Hgb 10.3 L Hct 34.8 L MCV 93.8 MCH 27.8 MCHC 29.6 L RDW Std Deviation 46.5 H RDW Coeff of [place] 13.5 Plt Count 433 MPV 9.3 Immature Gran % (Auto) 0.400 Neut % (Auto) 59.6 Lymph % (Auto) 30.8 [place] % (Auto) 6.0 Eos % (Auto) 2.5 Baso % (Auto) 0.7 Absolute Neuts (auto) 8.3 H Absolute Lymphs (auto) 4.26 Nucleated RBC % 0 PT Cancelled INR Cancelled APTT Cancelled Sodium 137 Potassium 5.1 Chloride 104 Carbon Dioxide 30.0 Anion Gap 3 L BUN 28 H Creatinine 1.10 H Estim Creat Clear Calc 35.40 Est GFR (MDRD) Af Amer 63 Est GFR (MDRD) Non-Af 52 L BUN/Creatinine Ratio 25.5 H Glucose 126 H Lactic Acid Calcium 9.1 Total Bilirubin 0.10 L AST 26 ALT 16 Alkaline Phosphatase 112 Troponin I 0.132 H Total Protein 8.1 Albumin 3.8 Globulin 4.3 H Albumin/Globulin Ratio 0.9 Urine Color Urine Clarity Urine pH Ur Specific [place] Urine Protein Urine Glucose (UA) Urine Ketones Urine Occult Blood Urine Nitrite Urine Bilirubin Urine Urobilinogen Ur Leukocyte Esterase Urine RBC Urine WBC Ur Squamous Epith Cells Urine Bacteria Urine Mucus 04/26/21 04/26/21 04/26/21 20:55 21:37 22:53 WBC RBC Hgb Hct MCV MCH MCHC RDW Std Deviation RDW Coeff of [place] Plt Count MPV Immature Gran % (Auto) Neut % (Auto) Lymph % (Auto) [place] % (Auto) Eos % (Auto) Baso % (Auto) Absolute Neuts (auto) Absolute Lymphs (auto) Nucleated RBC % PT 20.7 H INR 1.9 APTT 34.9 Sodium Potassium Chloride Carbon Dioxide Anion Gap BUN Creatinine Estim Creat Clear Calc Est GFR (MDRD) Af Amer Est GFR (MDRD) Non-Af BUN/Creatinine Ratio Glucose Lactic Acid 0.7 Calcium Total Bilirubin AST ALT Alkaline Phosphatase Troponin I Total Protein Albumin Globulin Albumin/Globulin Ratio Urine Color Yellow Urine Clarity Sl. Cloudy Urine pH 6.0 Ur Specific [place] 1.020 Urine Protein 30 H Urine Glucose (UA) Normal Urine Ketones Negative Urine Occult Blood 25 H Urine Nitrite Positive H Urine Bilirubin Negative Urine Urobilinogen Normal Ur Leukocyte Esterase 500 H Urine RBC 0-5 SEEN Urine WBC 50-100 SEEN Ur Squamous Epith Cells 0-5 SEEN Urine Bacteria 2+ Urine Mucus 0 SEEN 04/27/21 04/27/21 04/27/21 00:25 03:24 03:24 WBC 11.2 H RBC 3.80 L Hgb 10.5 L Hct 35.4 L MCV 93.2 MCH 27.6 MCHC 29.7 L RDW Std Deviation 45.6 H RDW Coeff of [place] 13.4 Plt Count 417 MPV 9.3 Immature Gran % (Auto) 0.500 Neut % (Auto) 91.6 H Lymph % (Auto) 6.9 L [place] % (Auto) 0.6 Eos % (Auto) 0.0 Baso % (Auto) 0.4 Absolute Neuts (auto) 10.3 H Absolute Lymphs (auto) 0.77 L Nucleated RBC % 0 PT 20.7 H INR 1.9 APTT Sodium Potassium Chloride Carbon Dioxide Anion Gap BUN Creatinine Estim Creat Clear Calc Est GFR (MDRD) Af Amer Est GFR (MDRD) Non-Af BUN/Creatinine Ratio Glucose Lactic Acid Calcium Total Bilirubin AST ALT Alkaline Phosphatase Troponin I 1.100 H* Total Protein Albumin Globulin Albumin/Globulin Ratio Urine Color Urine Clarity Urine pH Ur Specific [place] Urine Protein Urine Glucose (UA) Urine Ketones Urine Occult Blood Urine Nitrite Urine Bilirubin Urine Urobilinogen Ur Leukocyte Esterase Urine RBC Urine WBC Ur Squamous Epith Cells Urine Bacteria Urine Mucus 04/27/21 04/27/21 03:24 03:24 WBC RBC Hgb Hct MCV MCH MCHC RDW Std Deviation RDW Coeff of [place] Plt Count MPV Immature Gran % (Auto) Neut % (Auto) Lymph % (Auto) [place] % (Auto) Eos % (Auto) Baso % (Auto) Absolute Neuts (auto) Absolute Lymphs (auto) Nucleated RBC % PT INR APTT Sodium 137 Potassium 5.0 Chloride 101 Carbon Dioxide 33.0 H Anion Gap 3 L BUN 28 H Creatinine 1.01 Estim Creat Clear Calc 38.55 Est GFR (MDRD) Af Amer 69 Est GFR (MDRD) Non-Af 57 L BUN/Creatinine Ratio 27.7 H Glucose 155 H Lactic Acid Calcium 9.3 Total Bilirubin AST ALT Alkaline Phosphatase Troponin I 2.860 H* Total Protein Albumin Globulin Albumin/Globulin Ratio Urine Color Urine Clarity Urine pH Ur Specific [place] Urine Protein Urine Glucose (UA) Urine Ketones Urine Occult Blood Urine Nitrite Urine Bilirubin Urine Urobilinogen Ur Leukocyte Esterase Urine RBC Urine WBC Ur Squamous Epith Cells Urine Bacteria Urine Mucus Micro: Microbiology 04/26/21 21:00 Mucosa - Nasopharyngeal SARS-CoV-2 Antigen (Rapid) - Final Radiography Diagnostic Testing: Radiology Impression Brain CT 04/26/21 20:51 IMPRESSION: Left cerebral encephalomalacia. Electronically Signed: Romel Escudero DO at 22:23 EDT Tel [phone], Service support , Chest X-Ray 04/26/21 21:20 IMPRESSION: Chronic bronchitic changes without acute cardiopulmonary disease. Electronically Signed: Abhijit Bailon DO at 21:49 EDT Tel [phone], Service support , Brain MRI 04/27/21 00:59 IMPRESSION: Involutional changes of the brain, as described above. Electronically Signed: Oscar Petersen MD at 10:12 EDT , Service support , Physical Exam Narrative See subjective. Const alert, oriented x3 and no apparent distress HEENT head/scalp atraumatic and moist oral mucous membranes Head and Scalp: normocephalic Eyes PERRL, EOMs intact bilaterally and conjunctivae normal Neck no lymphadenopathy, supple and no JVD Resp Effort and Inspection: labored Auscultation: diminished lung sounds Cardio no murmurs and no JVD Rate: tachycardic GI normal to inspection, nondistended, normoactive bowel sounds, soft to palpation, non-tender and non-distended Extremity normal to inspection, full ROM and no clubbing, cyanosis or edema Skin no rashes or lesions noted, no wounds, skin turgor normal and no jaundice Neuro no focal motor deficits and no sensory deficits noted Neuro Narrative: Aphasic, communicates through notes. Psych affect normal Assessment & Plan Assessment/Plan (1) COPD (chronic obstructive pulmonary disease): (2) COPD with acute exacerbation: (3) Acute cystitis: (4) Abnormal cardiac enzyme level: (5) Ataxia: (6) Dysphasia: (7) Atherosclerotic heart disease of [place] coronary artery without angina pectoris: QUALIFIERS: [place] vs. transplanted heart: [place] heart Qualified Code(s): I25.10 - Atherosclerotic heart disease of [place] coronary artery without angina pectoris (8) History of CVA (cerebrovascular accident): (9) Essential hypertension: PLAN: 1) Abnormal cardiac enzymes Elevated on admission. Stress test demonstrated normal left ventricular systolic function and no evidence of myocardial ischemia. EF is 68%. Previous catheterization from August 2020 demonstrated; total occlusion of the RCA and nonobstructive atherosclerosis involving proximal circumflex. Cardiology following. Plan; continue Coumadin, continue aspirin and add Plavix, continue statin, beta-rema and long-acting nitrate. Echocardiogram in a.m. 2) Acute cystitis/Sepsis Patient still meets SIRS criteria with elevated white count (although down from admission), tachycardia at a rate of 110 and tachypnea at a rate of 23 breaths/min. Symptoms complicated by #3. Blood and urine cultures pending. Rapid Covid negative. Plan; continue Rocephin, Tylenol as needed, Zofran as needed, continue to monitor CBC and BMP. 3) Acute COPD exacerbation in the setting of chronic respiratory failure Currently satting at 98% on accommodation of nasal cannula at 5 L and BiPAP as needed. Baseline is 3 L. Plan; continue duonebs, albuterol as needed, continue prednisone 4) Gait imbalance/Ataxia No focal neuro deficits evident on physical exam. CT/MRI of the brain unremarkable. 5) CAD Continue aspirin, statin, beta-rema, lisinopril and isosorbide mononitrate. 6) Hx of Stroke Patient suffers from dysarthria related to her previous stroke, communicates through writing notes. Continue aspirin and Coumadin. 7) HTN Stable, continue home BP regimen. DVT Prophylaxis - Coumadin Patient seen by Shon Parker PA-C, under the supervision of Dr. Brown. Documented by User: Dr. Janusz Brown, 04/27/21 14:56 Objective Data Lab / Micro Data Result Diagrams: 04/27/21 03:24 04/27/21 03:24 Physical Exam Const alert Constitutional Narrative: on BiPAP. No respiratory distress. Resp Resp Narrative: coarse breath sounds bilaterally. Cardio regular rate, regular rhythm, S1 normal heart sound and S2 normal heart sound GI non-tender and non-distended Extremity General Extremity: edema Peripheral Pulses: Yes pulses 2+ throughout Skin no rashes or lesions noted Neuro CN's II-XII intact bilaterally Sensorium / Orientation: awake and alert Motor Exam: strength 5/5 throughout Assessment & Plan Assessment/Plan (1) Acute cystitis: PLAN: Patient seen and examined independently. Data reviewed. I agree with the above note by the physician assistant manager of operations. 1. Non ST-elevation myocardial infarction * suspect type II event * troponins peaked at 2.86 * continue ASA, carveilol, clopidogrel * anticoaguleted on warfarin * stress test negative * cardiology following. 2. Acute hypoxic respiratory failure * 2/2 AECOPD +/- Ac HFpEF * wean oxygen as tolerated * continue prednisone * increase diuresis * COVID 19 rapid negative. 3. UTI * UCx with 100k GNR * continue CTX * adjust abx accordingly 4. encephalopathy * likely metabolic given above issues plus underlying poor mentation 5. VTE prophylaxis: anticoagulated DW patient's sister at bedside. Visit Charges Inpatient E&M: 98738 Subs Hosp L3
--- NOTE | 2021-04-27 12:23 | STRESSREP_ITS ---
Stress Test Report Treadmill myocardial perfusion stress test. Indication; 67-year-old patient, presented to the emergency department at [facility] with chief complaint of chest pain., Patient did have history of diabetes mellitus, ulcerative colitis TIA., Other medical problem include history of sleep apnea osteoarthritis and depression. History of TIA Stress protocol: Patient exercised according to standard [place] protocol. For 4 minutes, achieving a workload level of max 5.7 METS. Resting heart rate 70 bpm, suni to a maximum heart rate of 141 bpm's value represented 92% of the maximum age- predicted heart rate. Resting blood pressure 138/90 mmHg, suni to a maximum blood pressure of 180/74 mmHg. Exercise test was stopped due to symptoms of dyspnea and patient achieving the target heart rate. Myocardial perfusion protocol. 14.9 mCi ]of Technetium 99m Sestamibi was injected at rest. Patient exercised according to standard [place] protocol, at maximal stress, patient received 45 mCi of Technetium 99m sestamibi was injected. Stress images were obtained stress and rest images were reconstructed and compared in the short axis vertical and horizontal long axis. Gated images were also obtained Perfusion SPECT analysis: Review of the images demonstrate normal uptake of sestamibi at rest, post stress images demonstrate similar uptake of sestamibi to the resting images, homogeneous tracer uptake With no evidence of reversible myocardial ischemia. Gated SPECT analysis: The gated ejection fraction is 68%, wall motion showed normal LV systolic function Conclusion: Negative treadmill sestamibi myocardial perfusion study for reversible myocardial ischemia Normal LV systolic function Tiffany Hernandez MD,FACC,[facility]
[2021-04-27] MEDS: Clopidogrel Bisulfate 75 MG Tablet PO (12:41)
[2021-04-27] MEDS: Furosemide 40 MG/4 ML Vial IV (17:23)
[2021-04-27] MEDS: Isosorbide Mononitrate 30 MG Tablet PO (21:45)
[2021-04-27] MEDS: Atorvastatin Calcium 20 MG Tablet PO (21:46)
[2021-04-28] VITALS (15 sets, daily range): BP systolic 119–154; BP diastolic 65–88; PULSE 92–113; RESP 10–24; TEMP 36.2–36.8; O2SAT 93–98
[2021-04-28] MEDS: Albuterol 2.5 MG/3 ML VIAL.NEB. INHALATION (04:50)
[2021-04-28] MEDS: LORazepam 0.5 MG Tablet PO (06:07)
[2021-04-28 07:09] LABS: Absolute Lymphocyte Count 2.74 X10^3/uL (0.83-4.51); Basophil# 0.01 X10^3/uL; Basophil% 0.1 % (0-1); Hematocrit 32.1 % (37-47); Hemoglobin 9.8 g/dL (12.0-15.0); Lymphocyte # 2.74 X10^3/ul (0.83-4.51); Mean Corp Hgb Conc 30.5 g/dL (32-36); Mean Corpuscular Hgb 27.1 pg (27.0-32.0); Mean Corpuscular Volume 88.7 fL (81-99); Monocyte# 1.25 X10^3/uL; Monocyte% 9.6 % (0-10); NRBC Flagged by Analyzer 0 % (0-5); Neutrophil # 8.98 X10^3/uL (2.7-7.7); Neutrophil % 68.8 % (47-70); Platelet Count 416 K/mm3 (150-450); RBC Distribution Width CV 13.5 % (11.6-14.6); Red Blood Count 3.62 M/mm3 (4.2-5.4)
[2021-04-28] MEDS: Ipratropium/Albuterol Sulfate 3 ML AMPUL.NEB INHALATION ×5 (07:10→23:04)
[2021-04-28 07:40] LABS: Anion Gap 6 (5-15); BUN 29 mg/dL (7-18); BUN/Creat Ratio 27.6 RATIO (10-20); Calcium,Total 9.5 mg/dL (8.5-10.1); Chloride 94 mmol/L (98-107); Creatinine, Serum 1.05 mg/dL (0.55-1.02); EST Glomerular Filtration Rate 55 mL/min (>60); Est Glom Filt Rate - Afr Amer 66 mL/min (>60); Estimated Creatinine Clearance 37.08 ml/min; Glucose 128 mg/dL (74-106); Potassium 4.1 mmol/L (3.5-5.1); Sodium Level 136 mmol/L (136-145)
[2021-04-28 08:39] LABS: International Normalized Ratio 1.8; Prothrombin Time (Protime)PT. 20.1 SECONDS (11.7-14.9)
[2021-04-28] MEDS: Acetaminophen 325 MG Tablet 650 MG PO ×3 (09:02→22:05)
[2021-04-28] MEDS: busPIRone 5 MG Tablet 7.5 MG PO ×2 (09:02→22:01)
[2021-04-28] MEDS: Furosemide 40 MG/4 ML Vial IV ×2 (09:02→17:14)
[2021-04-28] MEDS: predniSONE 20 MG Tablet 40 MG PO (09:02)
[2021-04-28] MEDS: Lisinopril 10 MG Tablet PO (09:03)
[2021-04-28] MEDS: Montelukast 10 MG Tablet PO (09:03)
[2021-04-28] MEDS: Aspirin E.C. 81 MG Tablet PO (09:03)
[2021-04-28] MEDS: Clopidogrel Bisulfate 75 MG Tablet PO (09:03)
[2021-04-28] MEDS: Carvedilol 3.125 MG TABLET PO ×2 (09:03→17:14)
--- NOTE | 2021-04-28 11:21 | PN.HOSP_ITS ---
Documented by User: Shon WILLIAMSON 04/28/21 11:35 Subjective Subjective Patient is a 70-year-old female lying in bed, alert and oriented x3. Patient complains of upper right leg pain and is asking for Anglican cream. There is explained to patient that screen is not carried in pharmacy, patient says that her family member will bring it. Denies chest pain, shortness of breath, palpitations, hemoptysis, sputum production, fever, chills, N/V/D. Objective Data Objective Data Vital Signs: Vital Signs Temp Pulse Resp BP Pulse Ox 98.0 F 113 H 18 119/65 98 04/28/21 09:00 04/28/21 09:00 04/28/21 09:00 04/28/21 09:00 04/28/21 09:00 Oxygen Flow Rate (L/min) 3 Oxygen Delivery Method Nasal Cannula Weight: 230 lb 6.129 oz Body Mass Index (BMI) 43.5 Intake & Output: Intake and Output for Last 24 Hours 04/26/21 04/27/21 04/28/21 23:59 23:59 23:59 Intake Total 1563.33 / 1683.33 180 / 180 Output Total 1550 / 2100 650 / 650 Balance 13.33 / -416.67 -470 / -470 Lab / Micro Data Result Diagrams: 04/28/21 07:01 04/28/21 07:01 Labs: Laboratory Results - last 24 hr 04/28/21 04/28/21 04/28/21 07:01 07:01 07:01 WBC 13.0 H RBC 3.62 L Hgb 9.8 L Hct 32.1 L MCV 88.7 MCH 27.1 MCHC 30.5 L RDW Std Deviation 44.0 H RDW Coeff of Huyen 13.5 Plt Count 416 MPV 9.0 Immature Gran % (Auto) 0.500 Neut % (Auto) 68.8 Lymph % (Auto) 21.0 [place] % (Auto) 9.6 Eos % (Auto) 0.0 Baso % (Auto) 0.1 Absolute Neuts (auto) 9.0 H Absolute Lymphs (auto) 2.74 Nucleated RBC % 0 PT 20.1 H INR 1.8 Sodium 136 Potassium 4.1 Chloride 94 L Carbon Dioxide 36.0 H Anion Gap 6 BUN 29 H Creatinine 1.05 H Estim Creat Clear Calc 37.08 Est GFR (MDRD) Af Amer 66 Est GFR (MDRD) Non-Af 55 L BUN/Creatinine Ratio 27.6 H Glucose 128 H Calcium 9.5 Micro: Microbiology 04/26/21 22:53 Urine, Clean Catch Urine Culture - Final Klebsiella pneumoniae sp pneum 04/26/21 21:00 Mucosa - Nasopharyngeal SARS-CoV-2 Antigen (Rapid) - Final Radiography Diagnostic Testing: Radiology Impression Echocardiogram 04/27/21 00:59 Interpretation Summary The estimated ejection fraction is EF 50% %. Mild LV systolic Dysfunction Mild Apical Hypokiesia Ordering Physician: Joan Duncan Referring Physician: Romario Aguilar Performed By: Lian Turcios, MITCHELL, RVT Physical Exam Const alert, oriented x3 and no apparent distress HEENT head/scalp atraumatic, moist oral mucous membranes, oropharynx normal and dentition normal Head and Scalp: normocephalic Eyes PERRL, EOMs intact bilaterally and conjunctivae normal Neck no lymphadenopathy, supple and no JVD Resp normal respiratory effort, no retractions, no use of accessory muscles and clear to auscultation bilaterally Cardio regular rate, regular rhythm, no murmurs and no JVD GI normal to inspection, nondistended, normoactive bowel sounds, soft to palpation and non-tender Extremity normal to inspection, full ROM and no clubbing, cyanosis or edema Extremity Narrative: Complaining of pain about the upper right leg. Skin no rashes or lesions noted, no wounds and no jaundice Neuro CN's II-XII intact bilaterally Neuro Narrative: Patient suffers chronically from dysarthria, no other focal neuro deficits evident on physical exam. Psych affect normal Assessment & Plan Assessment/Plan (1) Multi-vessel coronary artery stenosis: (2) COPD (chronic obstructive pulmonary disease): (3) Acute cystitis: (4) Abnormal cardiac enzyme level: (5) Ataxia: (6) Dysphasia: (7) Atherosclerotic heart disease of [place] coronary artery without angina pectoris: QUALIFIERS: [place] vs. transplanted heart: [place] heart Qualified Code(s): I25.10 - Atherosclerotic heart disease of [place] coronary artery without angina pectoris (8) History of CVA (cerebrovascular accident): (9) Essential hypertension: PLAN: See subjective for patient presentation. Patient requests Anglican cream, which is not carried at the pharmacy. Pain nonresponsive to as needed Tylenol. Patient claims that family members will bring in said cream. Case management/social work working with patient and family for disposition. Family and patient currently selecting appropriate facility in [place] or [facility]. 1) Abnormal cardiac enzymes Sustained tachycardia currently at 113, despite beta-rema therapy. Echocardiogram on 04/27/21 demonstrated an estimated EF of 50%, mild LV systolic dysfunction and mild apical hypokinesia. Cardiology following. Plan; continue Coumadin, continue aspirin and add Plavix, continue statin, beta-rema and long-acting nitrate.? 2) Acute cystitis/Sepsis Patient still meets SIRS criteria with elevated white count (although down from admission) and tachycardia at a rate of 110, Tachypnea resolved and patient is afebrile. Symptoms complicated by #3. Urine cultures grew Klebsiella. Blood cultures pending. Rapid Covid negative.? Plan; continue Rocephin, Tylenol as needed, Zofran as needed, continue to monitor CBC and BMP. 3) Acute COPD exacerbation in the setting of chronic respiratory failure Currently satting at 98% on accommodation of nasal cannula at 5 L and BiPAP as needed.? Baseline is 3 L.? Plan; continue duonebs, albuterol as needed, continue prednisone 4) Gait imbalance/Ataxia No focal neuro deficits evident on physical exam.? CT/MRI of the brain unremarkable. 5) CAD Continue aspirin, statin, beta-rema, lisinopril and isosorbide mononitrate. 6) Hx of Stroke Patient suffers from dysarthria related to her previous stroke, communicates through writing notes.? Continue aspirin and Coumadin. 7) HTN Stable, continue home BP regimen. DVT Prophylaxis - Coumadin Patient seen by Shon Parker PA-C, under the supervision of Dr. Brown.? Documented by User: Dr. Janusz Brown, 04/28/21 15:14 Subjective Subjective Complains of pain in her right leg and asking for an Anglican ointment. Objective Data Lab / Micro Data Attestation: I reviewed the patient's lab results. Result Diagrams: 04/28/21 07:01 04/28/21 07:01 Physical Exam Narrative anxious. more alert today Resp normal respiratory effort and clear to auscultation bilaterally Cardio regular rate, regular rhythm, S1 normal heart sound and S2 normal heart sound GI normal to inspection, nondistended, normoactive bowel sounds, non-tender and non-distended Extremity Extremity Narrative: right quad TTP out of proportion to exam. no woody induration. Skin Skin Narrative: venous stasis dermatitis. Assessment & Plan Assessment/Plan (1) Non-ST elevation [place] (NSTEMI): PLAN: Patient seen and examined independently.? Data reviewed.? I agree with the above note by the physician seed analysis laboratory assistant. 1. ? Non ST-elevation myocardial infarction * suspect type II event * troponins peaked at 15 * continue ASA, carveilol, clopidogrel * anticoaguleted on heparin gtt * stress test negative * cardiology following. * plan for [facility] on 05/02/2021 2. Acute hypoxic respiratory failure * 2/2 AECOPD +/- Ac HFpEF * wean oxygen as tolerated * continue prednisone * continue IV furosemide * COVID 19 rapid negative. 3. UTI * UCx with 100k Klebsiella, resistant * continue CTX for now 4. encephalopathy * likely metabolic given above issues plus underlying poor mentation 5. VTE prophylaxis: anticoagulated 6. Right leg pain * out of proportion to exam * reassurance provided to patient * recommended acetaminophen Visit Charges Inpatient E&M: 30239 Subs Hosp L2
--- NOTE | 2021-04-28 13:33 | PN.CARD_ITS ---
Subjective Subjective Patient seen and discussed with the nursing staff No symptoms of chest pain Also her symptoms of left arm pain improved She complained of the right lower extremity discomfort. Objective Data Vital Signs: Vital Signs Temp Pulse Resp BP Pulse Ox 98.0 F 93 24 H 119/65 98 04/28/21 09:00 04/28/21 11:16 04/28/21 11:16 04/28/21 09:00 04/28/21 09:00 Oxygen Flow Rate (L/min) 6 Oxygen Delivery Method Nasal Cannula Weight: 230 lb 6.129 oz Body Mass Index (BMI) 43.5 Intake & Output: Intake and Output for Last 24 Hours 04/26/21 04/27/21 04/28/21 23:59 23:59 23:59 Intake Total 1563.33 / 1683.33 180 / 180 Output Total 1550 / 2100 1300 / 1300 Balance 13.33 / -416.67 -1120 / -1120 Lab / Micro Data Result Diagrams: 05/02/21 06:20 05/02/21 06:20 Labs: Laboratory Results - last 24 hr 04/28/21 04/28/21 04/28/21 07:01 07:01 07:01 WBC 13.0 H RBC 3.62 L Hgb 9.8 L Hct 32.1 L MCV 88.7 MCH 27.1 MCHC 30.5 L RDW Std Deviation 44.0 H RDW Coeff of [place]en 13.5 Plt Count 416 MPV 9.0 Immature Gran % (Auto) 0.500 Neut % (Auto) 68.8 Lymph % (Auto) 21.0 [place] % (Auto) 9.6 Eos % (Auto) 0.0 Baso % (Auto) 0.1 Absolute Neuts (auto) 9.0 H Absolute Lymphs (auto) 2.74 Nucleated RBC % 0 PT 20.1 H INR 1.8 Sodium 136 Potassium 4.1 Chloride 94 L Carbon Dioxide 36.0 H Anion Gap 6 BUN 29 H Creatinine 1.05 H Estim Creat Clear Calc 37.08 Est GFR (MDRD) Af Amer 66 Est GFR (MDRD) Non-Af 55 L BUN/Creatinine Ratio 27.6 H Glucose 128 H Calcium 9.5 Micro: Microbiology 04/26/21 22:53 Urine, Clean Catch Urine Culture - Final Klebsiella pneumoniae sp pneum 04/26/21 21:00 Mucosa - Nasopharyngeal SARS-CoV-2 Antigen (Rapid) - Final Cardiology Labs/Tests 04/28/21 07:01: WBC 13.0 H, RBC 3.62 L, Hgb 9.8 L, Hct 32.1 L, MCV 88.7, MCH 27.1, MCHC 30.5 L, Plt Count 416, MPV 9.0, Immature Gran % (Auto) 0.500, Neut % (Auto) 68.8, Lymph % (Auto) 21.0, [place] % (Auto) 9.6, Eos % (Auto) 0.0, Baso % (Auto) 0.1, Absolute Neuts (auto) 9.0 H, Nucleated RBC % 0 04/28/21 07:01: PT 20.1 H, INR 1.8 04/28/21 07:01: Sodium 136, Potassium 4.1, Chloride 94 L, Carbon Dioxide 36.0 H, Anion Gap 6, BUN 29 H, Creatinine 1.05 H, Est GFR (MDRD) Af Amer 66, Est GFR (MDRD) Non-Af 55 L, BUN/Creatinine Ratio 27.6 H, Glucose 128 H, Calcium 9.5 Rhythm:Normal sinus rhythm with no significant ventricular dysrhythmia EKG: Normal sinus rhythm with ST-T change in the lateral leads. : Radiography Diagnostic Testing: Radiology Impression Echocardiogram 04/27/21 00:59 Interpretation Summary The estimated ejection fraction is EF 50% %. Mild LV systolic Dysfunction Mild Apical Hypokiesia Ordering Physician: Joan Duncan Referring Physician: Romario Aguilar Performed By: Lian Turcios, RDCS, RVT Physical Exam Narrative Limited physical exam S1-S2 is regular there is no murmur Chest examination showed no mild bilateral basilar wheeze and rales Rest of physical exam is no change from prior. Assessment & Plan Assessment/Plan (1) Non-ST elevation [place] (NSTEMI): PLAN: Assessment/Plan (1) Non-ST elevation [place] (NSTEMI): PLAN: 70-year-old patient seen and evaluated today at bedside and discussed the cardiac care plan with the nursing staff and the medical team Noted her serum troponin high elevated she does not have any active symptoms of chest pain Recommendation and plan; 1. On the telemetry she had sinus tachycardia we will increase the dose of beta-rema to metoprolol 25 twice daily 2. We will continue the current treatment with IV heparin 3. She had a prior cardiac catheterization in August 2020 which she had a chronic total occlusion of RCA and nonobstructive atherosclerosis involving the left coronary system LAD as well as the proximal left circumflex 4. Cardiac catheterization on Friday by her primary patent paralegal to evaluate for progression of CAD. (2) Multi-vessel coronary artery stenosis: (3) COPD with acute exacerbation: (4) Acute cystitis: (5) Abnormal cardiac enzyme level: (6) Dysphasia: (7) Atherosclerotic heart disease of [place] coronary artery without angina pectoris: QUALIFIERS: [place] vs. transplanted heart: [place] heart Qualified Code(s): I25.10 - Atherosclerotic heart disease of [place] coronary artery without angina pectoris (8) History of CVA (cerebrovascular accident): (9) Essential hypertension: (10) COPD (chronic obstructive pulmonary disease): QUALIFIERS: COPD type: chronic bronchitis Chronic bronchitis type: simple Qualified Code(s): J41.0 - Simple chronic bronchitis
--- NOTE | 2021-04-28 18:40 | CASEMGMT ---
[facility] Note [facility] Referral Source: Kristin, community engagement representative Referral Reason: SNF SW received call from Kristin. She indicated patient's family wanted to speak to licensed master social worker. ORV[facility]LE met with patient and her daughter. Patient asked this software writer to explain what licensed master social worker had stated the previous day. SW noted that patient had spoken to [facility] but explained the process of rehab. They asked how long patient would be in SNF for rehab. ORV[facility]LE advised discharge is assessed day to day. Patient's daughter said that they have list of SNF's. Encouraged patient's daughter to look on line and read reviews regarding SNF. Encouraged to pick multiple choices for SNF. Plan: Follow up with PCU machine operator hop worker regarding SNF placement [facility]
[2021-04-28] MEDS: Isosorbide Mononitrate 30 MG Tablet PO (22:01)
[2021-04-28] MEDS: Ceftriaxone 1 GM/50 ML BAG IV (22:02)
[2021-04-28] MEDS: Atorvastatin Calcium 20 MG Tablet PO (22:02)
[2021-04-29] VITALS (20 sets, daily range): BP systolic 96–152; BP diastolic 56–102; PULSE 84–114; RESP 10–49; TEMP 36.4–36.8; O2SAT 92–98
[2021-04-29 06:30] LABS: Absolute Lymphocyte Count 4.35 X10^3/uL (0.83-4.51); Absolute Neutrophil Count 8.1 X10^3/uL (2.0-7.7); Basophil# 0.03 X10^3/uL; Basophil% 0.2 % (0-1); Eosinophil# 0.08 X10^3/uL; Eosinophils% 0.6 % (0-5); Hematocrit 31.3 % (37-47); Hemoglobin 9.6 g/dL (12.0-15.0); Lymphocyte # 4.35 X10^3/ul (0.83-4.51); Lymphocyte % 31.2 % (19-41); Mean Corp Hgb Conc 30.7 g/dL (32-36); Mean Corpuscular Hgb 27.4 pg (27.0-32.0); Mean Corpuscular Volume 89.2 fL (81-99); Monocyte# 1.31 X10^3/uL; Monocyte% 9.4 % (0-10); NRBC Flagged by Analyzer 0 % (0-5); Neutrophil # 8.07 X10^3/uL (2.7-7.7); Platelet Count 389 K/mm3 (150-450); RBC Distribution Width CV 13.4 % (11.6-14.6); RBC Distribution Width SD 44.1 fl (35.1-43.9); Red Blood Count 3.51 M/mm3 (4.2-5.4); White Blood Count 13.9 K/mm3 (4.4-11.0)
[2021-04-29 06:41] LABS: International Normalized Ratio 1.7
[2021-04-29] MEDS: Ipratropium/Albuterol Sulfate 3 ML AMPUL.NEB INHALATION ×2 (06:53→11:23)
[2021-04-29 06:54] LABS: Anion Gap 2 (5-15); BUN 29 mg/dL (7-18); BUN/Creat Ratio 28.7 RATIO (10-20); Calcium,Total 9.8 mg/dL (8.5-10.1); Chloride 96 mmol/L (98-107); Creatinine, Serum 1.01 mg/dL (0.55-1.02); EST Glomerular Filtration Rate 57 mL/min (>60); Est Glom Filt Rate - Afr Amer 69 mL/min (>60); Estimated Creatinine Clearance 38.55 ml/min; Glucose 112 mg/dL (74-106); Sodium Level 135 mmol/L (136-145)
[2021-04-29 07:56] LABS: Partial Thromboplast Time 28.6 Seconds (24.1-36.2)
[2021-04-29] MEDS: Acetaminophen 325 MG Tablet 650 MG PO ×3 (08:06→21:05)
[2021-04-29] MEDS: busPIRone 5 MG Tablet 7.5 MG PO ×2 (08:07→21:06)
[2021-04-29] MEDS: Aspirin E.C. 81 MG Tablet PO (08:08)
[2021-04-29] MEDS: predniSONE 20 MG Tablet 40 MG PO (08:08)
[2021-04-29] MEDS: Clopidogrel Bisulfate 75 MG Tablet PO (08:08)
[2021-04-29] MEDS: Montelukast 10 MG Tablet PO (08:09)
[2021-04-29] MEDS: Lisinopril 10 MG Tablet PO (08:09)
[2021-04-29] MEDS: Carvedilol 3.125 MG TABLET PO (08:09)
[2021-04-29] MEDS: Furosemide 40 MG/4 ML Vial IV ×2 (08:10→17:09)
[2021-04-29] MEDS: HEPARIN/D5w 25,000 UNITS 25,000 UNITS/250 ML IV.SOLN. 15 UNITS IV (08:15)
--- NOTE | 2021-04-29 11:39 | PN.HOSP_ITS ---
Documented by User: Shon WILLIAMSON 04/29/21 11:52 Subjective Subjective Patient is a 70-year-old female comfortably resting in bed, alert and oriented x3. Patient reports no progression in symptoms from yesterday, does report that leg pain has improved on current dose of Tylenol and Michael cream brought in by family member. Denies chest pain, shortness of breath, palpitations, sputum production, hemoptysis, fever, chills, N/V/D. Objective Data Objective Data Vital Signs: Vital Signs Temp Pulse Resp BP Pulse Ox 97.6 F L 102 H 26 H 125/80 H 96 04/29/21 10:07 04/29/21 10:07 04/29/21 10:07 04/29/21 10:07 04/29/21 10:07 Oxygen Flow Rate (L/min) 3 Oxygen Delivery Method Bi-pap Weight: 230 lb 6.129 oz Body Mass Index (BMI) 43.5 Intake & Output: Intake and Output for Last 24 Hours 04/27/21 04/28/21 04/29/21 23:59 23:59 23:59 Intake Total 1563.33 / 1683.33 530 / 530 200 / 200 Output Total 1550 / 2100 1500 / 1500 400 / 400 Balance 13.33 / -416.67 -970 / -970 -200 / -200 Lab / Micro Data Result Diagrams: 04/29/21 06:20 04/29/21 06:20 Labs: Laboratory Results - last 24 hr 04/28/21 04/28/21 04/29/21 12:45 16:49 06:20 WBC RBC Hgb Hct MCV MCH MCHC RDW Std Deviation RDW Coeff of Huyen Plt Count MPV Immature Gran % (Auto) Neut % (Auto) Lymph % (Auto) [place] % (Auto) Eos % (Auto) Baso % (Auto) Absolute Neuts (auto) Absolute Lymphs (auto) Nucleated RBC % PT 19.0 H INR 1.7 APTT Sodium Potassium Chloride Carbon Dioxide Anion Gap BUN Creatinine Estim Creat Clear Calc Est GFR (MDRD) Af Amer Est GFR (MDRD) Non-Af BUN/Creatinine Ratio Glucose Calcium Troponin I 15.500 H* 12.900 H* 04/29/21 04/29/21 04/29/21 06:20 06:20 06:20 WBC 13.9 H RBC 3.51 L Hgb 9.6 L Hct 31.3 L MCV 89.2 MCH 27.4 MCHC 30.7 L RDW Std Deviation 44.1 H RDW Coeff of Huyen 13.4 Plt Count 389 MPV 9.0 Immature Gran % (Auto) 0.600 Neut % (Auto) 58.0 Lymph % (Auto) 31.2 [place] % (Auto) 9.4 Eos % (Auto) 0.6 Baso % (Auto) 0.2 Absolute Neuts (auto) 8.1 H Absolute Lymphs (auto) 4.35 Nucleated RBC % 0 PT INR APTT 28.6 Sodium 135 L Potassium 4.0 Chloride 96 L Carbon Dioxide 37.0 H Anion Gap 2 L BUN 29 H Creatinine 1.01 Estim Creat Clear Calc 38.55 Est GFR (MDRD) Af Amer 69 Est GFR (MDRD) Non-Af 57 L BUN/Creatinine Ratio 28.7 H Glucose 112 H Calcium 9.8 Troponin I Micro: Microbiology 04/26/21 21:10 Blood Culture (Wb) - Right Hand Blood Culture - Preliminary No growth in 48 hours. 04/26/21 20:55 Blood Culture (Wb) - Left Hand Blood Culture - Preliminary No growth in 48 hours. 04/26/21 22:53 Urine, Clean Catch Urine Culture - Final Klebsiella pneumoniae sp pneum 04/26/21 21:00 Mucosa - Nasopharyngeal SARS-CoV-2 Antigen (Rapid) - Final Physical Exam Const alert, oriented x3 and no apparent distress HEENT head/scalp atraumatic and moist oral mucous membranes Head and Scalp: normocephalic Eyes PERRL, EOMs intact bilaterally and conjunctivae normal Neck no lymphadenopathy, supple and no JVD Resp normal respiratory effort, no retractions and no use of accessory muscles Cardio regular rate, regular rhythm, no murmurs and no JVD GI normal to inspection, nondistended, normoactive bowel sounds, soft to palpation, non-tender and non-distended Skin no rashes or lesions noted, no wounds and skin turgor normal Neuro CN's II-XII intact bilaterally Psych affect normal Assessment & Plan Assessment/Plan (1) Multi-vessel coronary artery stenosis: (2) COPD (chronic obstructive pulmonary disease): (3) Acute cystitis: (4) Abnormal cardiac enzyme level: (5) Ataxia: (6) Dysphasia: (7) Atherosclerotic heart disease of [place] coronary artery without angina pectoris: QUALIFIERS: [place] vs. transplanted heart: [place] heart Qualified Code(s): I25.10 - Atherosclerotic heart disease of [place] coronary artery wit hout angina pectoris (8) History of CVA (cerebrovascular accident): (9) Essential hypertension: PLAN: See subjective for patient presentation. Explained to patient that due to her elevated troponins, cardiology is recommending that patient needs cardiac catheterization. Explained that due to patient's previously being on Coumadin, she would have to wait till Friday for procedure to be done. Patient understood and was agreeable to all. Case management/social work working with patient and family for disposition. Family and patient currently selecting appropriate facility in [facility]. 1) Abnormal cardiac enzymes Currently 12.9, as high as 15.5 on 04/28/2021. Sustained tachycardia currently at 113, despite beta-rema therapy. Echocardiogram on 04/27/21 demonstrated an estimated EF of 50%, mild LV systolic dysfunction and mild apical hypokinesia. Cardiology following. Plan; Coumadin discontinued, heparin initiated 04/29, cardiac catheterization scheduled for 05/01/21, continue aspirin and add Plavix, continue statin, beta-rema and long-acting nitrate. 2) Acute cystitis/Sepsis Patient still [place] [address] wbc's and tachycardia at a rate of 102, Tachypnea at a rate of 26. Patient is afebrile. Symptoms complicated by #3. Urine cultures grew Klebsiella. Blood cultures demonstrate no growth. Rapid Covid negative. Plan; continue Rocephin, Tylenol as needed, Zofran as needed, continue to monitor CBC and BMP. 3) Acute COPD exacerbation in the setting of chronic respiratory failure Currently satting at 98% on accommodation of nasal cannula at 5 L and BiPAP as needed. Baseline is 3 L. Plan; continue duonebs, albuterol as needed, continue prednisone, and BIPAP. 4) Gait imbalance/Ataxia No focal neuro deficits evident on physical exam. CT/MRI of the brain unremarkable. 5) CAD Continue aspirin, statin, beta-rema, lisinopril and isosorbide mononitrate. 6) Hx of Stroke Patient suffers from dysarthria related to her previous stroke, communicates through writing notes. Continue aspirin and Coumadin. 7) HTN Stable, continue home BP regimen. DVT Prophylaxis - [place] Patient seen by Shon Parker PA-C, under the supervision of Dr. Brown. Documented by User: Dr. Janusz Brown, DO 04/29/21 13:48 Objective Data Lab / Micro Data Attestation: I reviewed the patient's lab results. Result Diagrams: 04/29/21 06:20 04/29/21 06:20 Physical Exam Const alert Constitutional Narrative: on BiPAP Resp normal respiratory effort Resp Narrative: coarse breath sounds bilaterally. Cardio regular rate, regular rhythm, S1 normal heart sound and S2 normal heart sound Neuro Sensorium / Orientation: awake and alert Assessment & Plan Assessment/Plan (1) Non-ST elevation [place] (NSTEMI): PLAN: Patient seen and examined independently.? Data reviewed.? I agree with the above note by the physician assistant professor of communication. 1. ? Non ST-elevation myocardial infarction * suspect type II event * troponins peaked at 15 * continue ASA, carveilol, clopidogrel * anticoaguleted on heparin gtt * stress test negative * cardiology following. * plan for [facility] on 05/02/2021 2. Acute hypoxic respiratory failure * 2/2 AECOPD +/- Ac HFpEF * wean oxygen as tolerated * continue prednisone * continue IV furosemide * COVID 19 rapid negative. 3. UTI * UCx with 100k Klebsiella, resistant * continue CTX for now 4. encephalopathy * likely metabolic given above issues plus underlying poor mentation 5. VTE prophylaxis: anticoagulated 6. Right leg pain * improved with her Michael cream * reassurance provided to patient * recommended acetaminophen Visit Charges Inpatient E&M: 72706 Subs Hosp L2
--- NOTE | 2021-04-29 13:07 | PCM.PN.CARD ---
Subjective Subjective Today at bedside and discussed with medical team and nursing staff She had no symptoms of chest pain she complained of pain on the right knee. Objective Data Vital Signs: Vital Signs Temp Pulse Resp BP Pulse Ox 98.3 F 96 20 H 119/81 H 94 04/29/21 12:54 04/29/21 12:54 04/29/21 12:54 04/29/21 12:54 04/29/21 12:54 Oxygen Flow Rate (L/min) 3 Oxygen Delivery Method Nasal Cannula Weight: 230 lb 6.129 oz Body Mass Index (BMI) 43.5 Intake & Output: Intake and Output for Last 24 Hours 04/27/21 04/28/21 04/29/21 23:59 23:59 23:59 Intake Total 1563.33 / 1683.33 530 / 530 440 / 440 Output Total 1550 / 2100 1500 / 1500 1500 / 1500 Balance 13.33 / -416.67 -970 / -970 -1060 / -1060 Lab / Micro Data Result Diagrams: 04/29/21 06:20 04/29/21 06:20 Labs: Laboratory Results - last 24 hr 04/28/21 04/28/21 04/29/21 12:45 16:49 06:20 WBC RBC Hgb Hct MCV MCH MCHC RDW Std Deviation RDW Coeff of Huyen Plt Count MPV Immature Gran % (Auto) Neut % (Auto) Lymph % (Auto) [place] % (Auto) Eos % (Auto) Baso % (Auto) Absolute Neuts (auto) Absolute Lymphs (auto) Nucleated RBC % PT 19.0 H INR 1.7 APTT Sodium Potassium Chloride Carbon Dioxide Anion Gap BUN Creatinine Estim Creat Clear Calc Est GFR (MDRD) Af Amer Est GFR (MDRD) Non-Af BUN/Creatinine Ratio Glucose Calcium Troponin I 15.500 H* 12.900 H* 04/29/21 04/29/21 04/29/21 06:20 06:20 06:20 WBC 13.9 H RBC 3.51 L Hgb 9.6 L Hct 31.3 L MCV 89.2 MCH 27.4 MCHC 30.7 L RDW Std Deviation 44.1 H RDW Coeff of Huyen 13.4 Plt Count 389 MPV 9.0 Immature Gran % (Auto) 0.600 Neut % (Auto) 58.0 Lymph % (Auto) 31.2 [place] % (Auto) 9.4 Eos % (Auto) 0.6 Baso % (Auto) 0.2 Absolute Neuts (auto) 8.1 H Absolute Lymphs (auto) 4.35 Nucleated RBC % 0 PT INR APTT 28.6 Sodium 135 L Potassium 4.0 Chloride 96 L Carbon Dioxide 37.0 H Anion Gap 2 L BUN 29 H Creatinine 1.01 Estim Creat Clear Calc 38.55 Est GFR (MDRD) Af Amer 69 Est GFR (MDRD) Non-Af 57 L BUN/Creatinine Ratio 28.7 H Glucose 112 H Calcium 9.8 Troponin I Micro: Microbiology 04/26/21 21:10 Blood Culture (Wb) - Right Hand Blood Culture - Preliminary No growth in 48 hours. 04/26/21 20:55 Blood Culture (Wb) - Left Hand Blood Culture - Preliminary No growth in 48 hours. 04/26/21 22:53 Urine, Clean Catch Urine Culture - Final Klebsiella pneumoniae sp pneum 04/26/21 21:00 Mucosa - Nasopharyngeal SARS-CoV-2 Antigen (Rapid) - Final Cardiology Labs/Tests 04/28/21 12:45: Troponin I 15.500 H* 04/28/21 16:49: Troponin I 12.900 H* 04/29/21 06:20: PT 19.0 H, INR 1.7 04/29/21 06:20: WBC 13.9 H, RBC 3.51 L, Hgb 9.6 L, Hct 31.3 L, MCV 89.2, MCH 27.4, MCHC 30.7 L, Plt Count 389, MPV 9.0, Immature Gran % (Auto) 0.600, Neut % (Auto) 58.0, Lymph % (Auto) 31.2, [place] % (Auto) 9.4, Eos % (Auto) 0.6, Baso % (Auto) 0.2, Absolute Neuts (auto) 8.1 H, Nucleated RBC % 0 04/29/21 06:20: Sodium 135 L, Potassium 4.0, Chloride 96 L, Carbon Dioxide 37.0 H, Anion Gap 2 L, BUN 29 H, Creatinine 1.01, Est GFR (MDRD) Af Amer 69, Est GFR (MDRD) Non-Af 57 L, BUN/Creatinine Ratio 28.7 H, Glucose 112 H, Calcium 9.8 04/29/21 06:20: APTT 28.6 Rhythm: athletic monitor showed underlying, sinus cardia heart rate of 101 bpm. EKG: T wave inversion in anterolateral lead with sinus tachycardia : Assessment & Plan Assessment/Plan (1) Non-ST elevation [place] (NSTEMI): PLAN: 70-year-old patient seen and evaluated today at bedside and discussed the cardiac care plan with the nursing staff and the medical team Noted her serum troponin high elevated she does not have any active symptoms of chest pain Recommendation and plan; 1. On the telemetry she had sinus tachycardia we will increase the dose of beta-rema to metoprolol 25 twice daily 2. We will continue the current treatment with IV heparin 3. She had a prior cardiac catheterization in August 2020 which she had a chronic total occlusion of RCA and nonobstructive atherosclerosis involving the left coronary system LAD as well as the proximal left circumflex 4. Cardiac catheterization on Friday by her primary model home sales greeter to evaluate for progression of CAD. (2) Multi-vessel coronary artery stenosis: (3) COPD with acute exacerbation: (4) Acute cystitis: (5) Abnormal cardiac enzyme level: (6) Dysphasia: (7) Atherosclerotic heart disease of [place] coronary artery without angina pectoris: QUALIFIERS: [place] vs. transplanted heart: [place] heart Qualified Code(s): I25.10 - Atherosclerotic heart disease of [place] coronary artery without angina pectoris (8) History of CVA (cerebrovascular accident): (9) Essential hypertension: (10) COPD (chronic obstructive pulmonary disease): QUALIFIERS: COPD type: chronic bronchitis Chronic bronchitis type: simple Qualified Code(s): J41.0 - Simple chronic bronchitis
[2021-04-29 14:41] LABS: Partial Thromboplast Time 123.8 Seconds (24.1-36.2)
[2021-04-29] MEDS: 0.9% Saline Lock 10 ML Syringe IV (17:09)
[2021-04-29] MEDS: Albuterol 2.5 MG/3 ML VIAL.NEB. INHALATION (17:25)
[2021-04-29] MEDS: oxyCODONE 5 MG Tablet PO (21:04)
[2021-04-29] MEDS: Isosorbide Mononitrate 30 MG Tablet PO (21:06)
[2021-04-29] MEDS: Atorvastatin Calcium 20 MG Tablet PO (21:06)
[2021-04-29] MEDS: Carvedilol 6.25 MG Tablet PO (21:07)
[2021-04-29] MEDS: Ceftriaxone 1 GM/50 ML BAG IV (21:15)
[2021-04-29 23:00] LABS: Partial Thromboplast Time 83.2 Seconds (24.1-36.2)
[2021-04-30] VITALS (18 sets, daily range): BP systolic 100–147; BP diastolic 56–79; PULSE 70–97; RESP 10–29; TEMP 36.3–37.1; O2SAT 95–100
[2021-04-30] MEDS: LORazepam 2 MG/ML Syringe 1 MG IV ×2 (01:09→08:02)
[2021-04-30] MEDS: Ipratropium/Albuterol Sulfate 3 ML AMPUL.NEB INHALATION ×5 (01:24→19:08)
[2021-04-30] MEDS: HEPARIN/D5w 25,000 UNITS 25,000 UNITS/250 ML IV.SOLN. 11 UNITS IV (05:42)
[2021-04-30 06:16] LABS: Absolute Lymphocyte Count 5.47 X10^3/uL (0.83-4.51); Absolute Neutrophil Count 8.4 X10^3/uL (2.0-7.7); Basophil# 0.03 X10^3/uL; Basophil% 0.2 % (0-1); Eosinophil# 0.16 X10^3/uL; Hematocrit 32.7 % (37-47); Hemoglobin 10.1 g/dL (12.0-15.0); Lymphocyte # 5.47 X10^3/ul (0.83-4.51); Mean Corp Hgb Conc 30.9 g/dL (32-36); Mean Corpuscular Hgb 27.6 pg (27.0-32.0); Mean Corpuscular Volume 89.3 fL (81-99); Mean Platelet Vol. 9.2 fl (6.2-12.0); Monocyte# 1.45 X10^3/uL; Monocyte% 9.3 % (0-10); NRBC Flagged by Analyzer 0 % (0-5); Neutrophil # 8.41 X10^3/uL (2.7-7.7); Neutrophil % 53.8 % (47-70); POSITIVE DIFFERENTIAL YES; Platelet Count 435 K/mm3 (150-450); RBC Distribution Width CV 13.6 % (11.6-14.6); RBC Distribution Width SD 44.4 fl (35.1-43.9); Red Blood Count 3.66 M/mm3 (4.2-5.4); White Blood Count 15.6 K/mm3 (4.4-11.0)
[2021-04-30 06:17] LABS: Differential Indicated SCAN CRITERIA MET
[2021-04-30 06:40] LABS: Anion Gap 4 (5-15); BUN 38 mg/dL (7-18); BUN/Creat Ratio 28.8 RATIO (10-20); Calcium,Total 9.5 mg/dL (8.5-10.1); Chloride 94 mmol/L (98-107); Creatinine, Serum 1.32 mg/dL (0.55-1.02); EST Glomerular Filtration Rate 42 mL/min (>60); Est Glom Filt Rate - Afr Amer 51 mL/min (>60); Glucose 110 mg/dL (74-106); Potassium 3.7 mmol/L (3.5-5.1); Sodium Level 137 mmol/L (136-145)
[2021-04-30] MEDS: oxyCODONE 5 MG Tablet PO ×3 (08:02→22:17)
[2021-04-30] MEDS: Clopidogrel Bisulfate 75 MG Tablet PO (08:04)
[2021-04-30] MEDS: Lisinopril 10 MG Tablet PO (08:04)
[2021-04-30] MEDS: Aspirin E.C. 81 MG Tablet PO (08:04)
[2021-04-30] MEDS: busPIRone 5 MG Tablet 7.5 MG PO ×2 (08:04→21:59)
[2021-04-30] MEDS: Montelukast 10 MG Tablet PO (08:04)
[2021-04-30] MEDS: predniSONE 20 MG Tablet 40 MG PO (08:04)
[2021-04-30] MEDS: Furosemide 40 MG/4 ML Vial IV ×2 (08:05→18:14)
[2021-04-30] MEDS: Carvedilol 6.25 MG Tablet PO ×2 (08:07→21:59)
[2021-04-30] MEDS: Acetaminophen 325 MG Tablet 650 MG PO ×3 (08:07→22:16)
--- NOTE | 2021-04-30 11:31 | PN.HOSP_ITS ---
Objective Data Objective Data Vital Signs: Vital Signs Temp Pulse Resp BP Pulse Ox 97.3 F L 90 18 147/79 H 98 04/30/21 08:00 04/30/21 11:15 04/30/21 11:15 04/30/21 08:00 04/30/21 11:15 Oxygen Flow Rate (L/min) 3 Oxygen Delivery Method Nasal Cannula Weight: 104.5 kg Body Mass Index (BMI) 43.5 Intake & Output: Intake and Output for Last 24 Hours 04/28/21 04/29/21 04/30/21 23:59 23:59 23:59 Intake Total 530 / 530 905.5 / 1205.5 681.22 / 681.22 Output Total 1500 / 1500 2300 / 2800 900 / 900 Balance -970 / -970 -1394.5 / -1594.5 -218.78 / -218.78 Lab / Micro Data Result Diagrams: 04/30/21 06:02 04/30/21 06:02 Labs: Laboratory Results - last 24 hr 04/29/21 04/29/21 04/30/21 14:20 22:40 06:02 WBC 15.6 H RBC 3.66 L Hgb 10.1 L Hct 32.7 L MCV 89.3 MCH 27.6 MCHC 30.9 L RDW Std Deviation 44.4 H RDW Coeff of Huyen 13.6 Plt Count 435 MPV 9.2 Immature Gran % (Auto) 0.700 Neut % (Auto) 53.8 Lymph % (Auto) 35.0 [place] % (Auto) 9.3 Eos % (Auto) 1.0 Baso % (Auto) 0.2 Absolute Neuts (auto) 8.4 H Absolute Lymphs (auto) 5.47 H Nucleated RBC % 0 APTT 123.8 H* 83.2 H Sodium Potassium Chloride Carbon Dioxide Anion Gap BUN Creatinine Estim Creat Clear Calc Est GFR (MDRD) Af Amer Est GFR (MDRD) Non-Af BUN/Creatinine Ratio Glucose Calcium 04/30/21 04/30/21 06:02 06:02 WBC RBC Hgb Hct MCV MCH MCHC RDW Std Deviation RDW Coeff of Huyen Plt Count MPV Immature Gran % (Auto) Neut % (Auto) Lymph % (Auto) [place] % (Auto) Eos % (Auto) Baso % (Auto) Absolute Neuts (auto) Absolute Lymphs (auto) Nucleated RBC % APTT 107.0 H* Sodium 137 Potassium 3.7 Chloride 94 L Carbon Dioxide 39.0 H Anion Gap 4 L BUN 38 H Creatinine 1.32 H Estim Creat Clear Calc 29.50 Est GFR (MDRD) Af Amer 51 L Est GFR (MDRD) Non-Af 42 L BUN/Creatinine Ratio 28.8 H Glucose 110 H Calcium 9.5 Micro: Microbiology 04/26/21 21:10 Blood Culture (Wb) - Right Hand Blood Culture - Preliminary No growth in 48 hours. 04/26/21 20:55 Blood Culture (Wb) - Left Hand Blood Culture - Preliminary No growth in 48 hours. 04/26/21 22:53 Urine, Clean Catch Urine Culture - Final Klebsiella pneumoniae sp pneum 04/26/21 21:00 Mucosa - Nasopharyngeal SARS-CoV-2 Antigen (Rapid) - Final Physical Exam Narrative GENERAL: cooperative HEENT: Atraumatic; EYES; Anicteric, Normal Conjunctiva NECK; supple, normal thyroid, RESPIRATORY: Diminished to auscultation CARDIOVASCULAR: Regular S1 S2, GI: soft, normoactive bowel sounds, : No Renal angle tenderness; EXTREMITIES: No edema, no clubbing, MUSCULOSKELETAL: no muscle waisting NEURO: Awake; no lateralizing signs. SKIN: No Rash PSYCH; Flat affect Assessment & Plan Assessment/Plan (1) Non-ST elevation [place] (NSTEMI): PLAN: Patient is a 70-year-old lady admitted with left arm pain. Her evaluation came back consistent with acute non-STEMI admitted to a monitored bed treatment initiated per protocol plan is for patient to undergo left heart catheterization with possible intervention on 05/01/2021 1. Acute non-STEMI ?Patient managed per protocol with systemic anticoagulation, dual antiplatelet therapy and heparin. Consultation placed to cardiology plan is for patient to undergo left heart catheterization on 05/01/2021 2. Acute hypoxic respiratory failure -secondary to combination of COPD and CHF with preserved ejection fraction patient managed with supplemental oxygen 3. COPD ?Managed with bronchodilator at therapy and systemic steroid 4. Acute congestive heart failure with preserved ejection fraction ?2D echo obtained on 04/27/2021 demonstrated EF of 50%. Patient is on Lasix did continue 5. Dyslipidemia -Patient is on statin therapy, continued at home dose 6. Hypertension - Blood pressure controlled, home medications continued with dose adjustment as needed 7. Acute cystitis with Klebsiella ?Patient managed with Rocephin 8. Systemic use of anticoagulation ?Reason unclear patient has history of previous CVA?? 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 Coumadin held patient started on heparin 9. DVT prophylaxis ?On systemic anticoagulation Visit Charges Inpatient E&M: 69798 Subs Hosp L2
--- NOTE | 2021-04-30 13:39 | PCM.PN.CARD ---
Subjective Subjective Patient seen and evaluated. Appears to be doing well. Has no complaints at this time. Objective Data Vital Signs: Vital Signs Temp Pulse Resp BP Pulse Ox 97.3 F L 90 18 147/79 H 98 04/30/21 08:00 04/30/21 11:15 04/30/21 11:15 04/30/21 08:00 04/30/21 11:15 Oxygen Flow Rate (L/min) 3 Oxygen Delivery Method Nasal Cannula Weight: 230 lb 6.129 oz Body Mass Index (BMI) 43.5 Intake & Output: Intake and Output for Last 24 Hours 04/28/21 04/29/21 04/30/21 23:59 23:59 23:59 Intake Total 530 / 530 905.5 / 1205.5 921.22 / 921.22 Output Total 1500 / 1500 2300 / 2800 1300 / 1300 Balance -970 / -970 -1394.5 / -1594.5 -378.78 / -378.78 Lab / Micro Data Result Diagrams: 04/30/21 06:02 04/30/21 06:02 Labs: Laboratory Results - last 24 hr 04/29/21 04/29/21 04/30/21 14:20 22:40 06:02 WBC 15.6 H RBC 3.66 L Hgb 10.1 L Hct 32.7 L MCV 89.3 MCH 27.6 MCHC 30.9 L RDW Std Deviation 44.4 H RDW Coeff of Huyen 13.6 Plt Count 435 MPV 9.2 Immature Gran % (Auto) 0.700 Neut % (Auto) 53.8 Lymph % (Auto) 35.0 [place] % (Auto) 9.3 Eos % (Auto) 1.0 Baso % (Auto) 0.2 Absolute Neuts (auto) 8.4 H Absolute Lymphs (auto) 5.47 H Nucleated RBC % 0 APTT 123.8 H* 83.2 H Sodium Potassium Chloride Carbon Dioxide Anion Gap BUN Creatinine Estim Creat Clear Calc Est GFR (MDRD) Af Amer Est GFR (MDRD) Non-Af BUN/Creatinine Ratio Glucose Calcium 04/30/21 04/30/21 06:02 06:02 WBC RBC Hgb Hct MCV MCH MCHC RDW Std Deviation RDW Coeff of Huyen Plt Count MPV Immature Gran % (Auto) Neut % (Auto) Lymph % (Auto) [place] % (Auto) Eos % (Auto) Baso % (Auto) Absolute Neuts (auto) Absolute Lymphs (auto) Nucleated RBC % APTT 107.0 H* Sodium 137 Potassium 3.7 Chloride 94 L Carbon Dioxide 39.0 H Anion Gap 4 L BUN 38 H Creatinine 1.32 H Estim Creat Clear Calc 29.50 Est GFR (MDRD) Af Amer 51 L Est GFR (MDRD) Non-Af 42 L BUN/Creatinine Ratio 28.8 H Glucose 110 H Calcium 9.5 Micro: Microbiology 04/26/21 21:10 Blood Culture (Wb) - Right Hand Blood Culture - Preliminary No growth in 48 hours. 04/26/21 20:55 Blood Culture (Wb) - Left Hand Blood Culture - Preliminary No growth in 48 hours. 04/26/21 22:53 Urine, Clean Catch Urine Culture - Final Klebsiella pneumoniae sp pneum 04/26/21 21:00 Mucosa - Nasopharyngeal SARS-CoV-2 Antigen (Rapid) - Final Cardiology Labs/Tests 04/29/21 14:20: APTT 123.8 H* 04/29/21 22:40: APTT 83.2 H 04/30/21 06:02: WBC 15.6 H, RBC 3.66 L, Hgb 10.1 L, Hct 32.7 L, MCV 89.3, MCH 27.6, MCHC 30.9 L, Plt Count 435, MPV 9.2, Immature Gran % (Auto) 0.700, Neut % (Auto) 53.8, Lymph % (Auto) 35.0, [place] % (Auto) 9.3, Eos % (Auto) 1.0, Baso % (Auto) 0.2, Absolute Neuts (auto) 8.4 H, Nucleated RBC % 0 04/30/21 06:02: Sodium 137, Potassium 3.7, Chloride 94 L, Carbon Dioxide 39.0 H, Anion Gap 4 L, BUN 38 H, Creatinine 1.32 H, Est GFR (MDRD) Af Amer 51 L, Est GFR (MDRD) Non-Af 42 L, BUN/Creatinine Ratio 28.8 H, Glucose 110 H, Calcium 9.5 04/30/21 06:02: APTT 107.0 H* Rhythm: EKG: ECHO: Preserved left ventricular systolic function with apical hypokinesis Stress Test: Cardiac Cath: PCI: CT Surgery: Holter monitor: EPS: PPM: CXR: Chest CT Scan: Physical Exam Const oriented x3 and healthy appearing Orientation / Consciousness: awake HEENT normocephalic Eyes PERRL and conjunctivae normal Neck supple, no JVD and no carotid bruits Chest inspection of chest normal Resp normal respiratory effort and clear to auscultation bilaterally Cardio Palpation: normal PMI Rate: regular rate Rhythm: regular rhythm Heart Sounds: S1 normal and S2 normal Peripheral Pulses: pulses 2+ throughout GI normal to inspection, nondistended, normoactive bowel sounds Extremity normal to inspection and no clubbing, cyanosis or edema Psych mental status grossly normal Assessment & Plan Assessment/Plan (1) Non-ST elevation [place] (NSTEMI): PLAN: She does have evidence of a non-ST elevation myocardial infarction with troponin elevating to 15. Her ejection fraction is fairly preserved and I would recommend that we further evaluate the above with a left heart catheterization. The risks benefits and alternatives have been explained to her she understands and agrees to proceed. She is currently on heparin which will be discontinued in early a.m. She will also continue on high intensity statin. (2) Essential hypertension: PLAN: Her blood pressure appears to be under good control and she will continue with carvedilol, isosorbide, and lisinopril
[2021-04-30 15:24] LABS: Partial Thromboplast Time 45.2 Seconds (24.1-36.2)
[2021-04-30] MEDS: Heparin Injection (Vial) 5,000 UNIT/ML VIAL IV (16:07)
[2021-04-30] MEDS: 0.9% Saline Lock 10 ML Syringe IV ×2 (16:07→18:15)
[2021-04-30] MEDS: Atorvastatin Calcium 20 MG Tablet PO (21:59)
[2021-04-30] MEDS: Isosorbide Mononitrate 30 MG Tablet PO (21:59)
[2021-04-30] MEDS: Ceftriaxone 1 GM/50 ML BAG IV (22:00)
[2021-04-30 22:24] LABS: Partial Thromboplast Time 66.4 Seconds (24.1-36.2)
[2021-05-01] VITALS (25 sets, daily range): BP systolic 89–149; BP diastolic 46–135; PULSE 60–93; RESP 12–22; TEMP 36.4–36.9; O2SAT 94–100
[2021-05-01] MEDS: LORazepam 2 MG/ML Syringe 1 MG IV ×2 (00:18→08:22)
[2021-05-01] MEDS: 0.9% Saline Lock 10 ML Syringe IV ×3 (00:18→21:32)
[2021-05-01] MEDS: Acetaminophen 325 MG Tablet 650 MG PO ×2 (04:16→13:27)
[2021-05-01] MEDS: oxyCODONE 5 MG Tablet PO ×2 (04:17→21:31)
--- NOTE | 2021-05-01 05:55 | EKG12_ITS ---
Test Reason : AM EKG Blood Pressure : / mmHG Vent. Rate : 076 BPM Atrial Rate : 076 BPM P-R Int : 132 ms QRS Dur : 102 ms QT Int : 398 ms P-R-T Axes : 070 053 103 degrees QTc Int : 447 ms Normal sinus rhythm Normal ECG Confirmed by ELIOT GILES, LUCY ([id number]), film or videotape editor DIVYA THOMPSON ([id number]) on 05/02/2021 1:20:24 PM Referred By: MARK ANTHONY Confirmed By:LUCY MCCABE MD
[2021-05-01] MEDS: Aspirin E.C. 81 MG Tablet PO (06:16)
[2021-05-01] MEDS: Clopidogrel Bisulfate 75 MG Tablet PO (06:16)
[2021-05-01] MEDS: Carvedilol 6.25 MG Tablet PO ×2 (06:16→21:33)
[2021-05-01] MEDS: Lisinopril 10 MG Tablet PO (06:17)
[2021-05-01] MEDS: Ipratropium/Albuterol Sulfate 3 ML AMPUL.NEB INHALATION ×4 (06:46→19:22)
[2021-05-01 08:22] LABS: Absolute Neutrophil Count 8.6 X10^3/uL (2.0-7.7); Basophil# 0.04 X10^3/uL; Basophil% 0.3 % (0-1); Eosinophil# 0.15 X10^3/uL; Hematocrit 32.2 % (37-47); Hemoglobin 9.7 g/dL (12.0-15.0); Lymphocyte % 32.8 % (19-41); Mean Corp Hgb Conc 30.1 g/dL (32-36); Mean Corpuscular Hgb 27.2 pg (27.0-32.0); Mean Corpuscular Volume 90.4 fL (81-99); Mean Platelet Vol. 9.4 fl (6.2-12.0); Monocyte# 1.14 X10^3/uL; Monocyte% 7.6 % (0-10); NRBC Flagged by Analyzer 0.1 % (0-5); Neutrophil # 8.56 X10^3/uL (2.7-7.7); Neutrophil % 57.4 % (47-70); Platelet Count 421 K/mm3 (150-450); RBC Distribution Width CV 13.4 % (11.6-14.6); RBC Distribution Width SD 44.7 fl (35.1-43.9); Red Blood Count 3.56 M/mm3 (4.2-5.4); White Blood Count 14.9 K/mm3 (4.4-11.0)
[2021-05-01 08:34] LABS: Anion Gap 5 (5-15); BUN 53 mg/dL (7-18); BUN/Creat Ratio 30.3 RATIO (10-20); Calcium,Total 9.2 mg/dL (8.5-10.1); Chloride 92 mmol/L (98-107); Creatinine, Serum 1.75 mg/dL (0.55-1.02); EST Glomerular Filtration Rate 30 mL/min (>60); Est Glom Filt Rate - Afr Amer 37 mL/min (>60); Estimated Creatinine Clearance 22.25 ml/min; Glucose 115 mg/dL (74-106); Magnesium 2.5 mg/dL (1.6-2.6); Potassium 3.7 mmol/L (3.5-5.1); Sodium Level 136 mmol/L (136-145)
--- NOTE | 2021-05-01 09:26 | CL.D_ITS ---
Patient Name: DEDRICK BUSTILLO Study Date: 05/01/2021 Performing: Norman Mccoy MD Ht: 61.02 inches 155 cm : 1950 Wt: 231.49 lbs 105 kg Age: 70 Gender: female BSA: 2.01 PROCEDURE(S) PERFORMED [id number]/LV CLINICAL PROFILE AND INDICATIONS Indications: Suspected CAD Heart Failure: NYHA Class: 3, Newly Diagnosed: Yes, Heart Failure Type: Systolic Stress/Imaging Stress/Image Study Performed: No CONCLUSIONS Severe triple-vessel disease involving a totally occluded left anterior descending artery with left t o left collaterals filling the distal LAD in a small vessel with small caliber. Left circumflex guero ry with diffuse disease; and a totally occluded right coronary artery. RECOMMENDATIONS Medical therapy DESCRIPTION OF PROCEDURE The patient arrived to the procedure lab. The risks and benefits of the procedure as well as a full d escription of our services here and current unavailability of surgical backup were fully explained to the patient and/or their significant other prior to the catheterization. The Timeout was completed, verifying the correct patient and procedure. The patient's procedural site was prepped and draped in the usual fashion. Local anesthetic was given subcutaneously to right radial region with Lidocaine 2% . Using a modified Seldinger technique, arterial access was obtained via the right radial artery, a 6 Fr sheath was inserted. Left Coronary Artery selective angiography was performed in multiple views u sing a 5 Fr. 4.0 Fife catheter. Right Coronary Artery selective angiography was then performed in mu ltiple views using a 5 Fr. 4.0 Fife catheter. Left Ventriculography was performed in GONZALEZ projection using a 5 Fr. Pigtail catheter. LV to AO pullback pressures were then recorded.The arterial sheath was pulled and a TR Band was applied for hemostasis. 11cc of air CORONARY ANGIOGRAPHY DOMINANCE: Right Dominant LEFT HEART ASSESSMENT Left Ventricular Ejection Fraction: by LV Gram 40 % Inferior Basal Akinesis Depressed Left Ventricular systolic function LEFT MAIN: Mild calcification LEFT ANTERIOR DESCENDING ARTERY: PROX LAD: Mild luminal irregularities less than 30% MID LAD: is occluded DISTAL LAD: The distal LAD fills via retrograde collaterals. CIRCUMFLEX ARTERY: Previously placed stent in the LAD as well as the circumflex artery is patent with mild disease. RIGHT CORONARY ARTERY: The right coronary artery appears to be subtotally occluded and fills via [place] aterals from a large septal auto specialty services manager COLLATERAL FLOW: Collateral flow from Left to Right Collateral flow from Left to Left COMPLICATIONS No Complications PROCEDURE MEDICATIONS Fentanyl 25 mcg IV Versed 0.5 mg IV Oxygen: 3 L/min via nasal cannula Heparin 3000 unit(s) IV 05/01/2021 09:00:50 SUMMARY OF HEMODYNAMIC DATA Time AIR REST ECG 08:40:06 AO 113/50 (75) SA 09:02:36 LV 112/10, 21 09:08:57 LV 120/7, 15 09:09:04 LV 121/15, 27 09:10:31 LVp 118/19, 35 09:10:35 AOp 117/54 (78) 09:10:40 09:21:46 Signed By Norman Mccoy MD On 05/01/2021 9:24:56 AM Norman Mccoy MD
--- NOTE | 2021-05-01 09:26 | PCM.PN.CARD ---
Subjective Subjective Seen and evaluated. Underwent cardiac catheterization today Objective Data Vital Signs: Vital Signs Temp Pulse Resp BP Pulse Ox 97.9 F 74 17 141/79 H 96 05/01/21 06:15 05/01/21 07:09 05/01/21 06:46 05/01/21 06:15 05/01/21 06:46 Oxygen Flow Rate (L/min) 3 Oxygen Delivery Method Bi-pap Weight: 230 lb 6.129 oz Body Mass Index (BMI) 43.5 Intake & Output: Intake and Output for Last 24 Hours 04/29/21 04/30/21 05/01/21 23:59 23:59 23:59 Intake Total 905.5 / 1205.5 1561.85 / 1561.85 235.25 / 235.25 Output Total 2300 / 2800 1750 / 1750 300 / 300 Balance -1394.5 / -1594.5 -188.15 / -188.15 -64.75 / -64.75 Lab / Micro Data Result Diagrams: 05/01/21 08:08 05/01/21 08:08 Labs: Laboratory Results - last 24 hr 04/30/21 04/30/21 05/01/21 14:40 22:05 08:08 WBC 14.9 H RBC 3.56 L Hgb 9.7 L Hct 32.2 L MCV 90.4 MCH 27.2 MCHC 30.1 L RDW Std Deviation 44.7 H RDW Coeff of Huyen 13.4 Plt Count 421 MPV 9.4 Immature Gran % (Auto) 0.900 Neut % (Auto) 57.4 Lymph % (Auto) 32.8 [place] % (Auto) 7.6 Eos % (Auto) 1.0 Baso % (Auto) 0.3 Absolute Neuts (auto) 8.6 H Absolute Lymphs (auto) 4.90 H Nucleated RBC % 0.1 APTT 45.2 H 66.4 H Sodium Potassium Chloride Carbon Dioxide Anion Gap BUN Creatinine Estim Creat Clear Calc Est GFR (MDRD) Af Amer Est GFR (MDRD) Non-Af BUN/Creatinine Ratio Glucose Calcium Magnesium 05/01/21 08:08 WBC RBC Hgb Hct MCV MCH MCHC RDW Std Deviation RDW Coeff of [place]uyen Plt Count MPV Immature Gran % (Auto) Neut % (Auto) Lymph % (Auto) [place] % (Auto) Eos % (Auto) Baso % (Auto) Absolute Neuts (auto) Absolute Lymphs (auto) Nucleated RBC % APTT Sodium 136 Potassium 3.7 Chloride 92 L Carbon Dioxide 39.0 H Anion Gap 5 BUN 53 H Creatinine 1.75 H Estim Creat Clear Calc 22.25 Est GFR (MDRD) Af Amer 37 L Est GFR (MDRD) Non-Af 30 L BUN/Creatinine Ratio 30.3 H Glucose 115 H Calcium 9.2 Magnesium 2.5 Micro: Microbiology 04/26/21 21:10 Blood Culture (Wb) - Right Hand Blood Culture - Preliminary No growth in 48 hours. 04/26/21 20:55 Blood Culture (Wb) - Left Hand Blood Culture - Preliminary No growth in 48 hours. 04/26/21 22:53 Urine, Clean Catch Urine Culture - Final Klebsiella pneumoniae sp pneum 04/26/21 21:00 Mucosa - Nasopharyngeal SARS-CoV-2 Antigen (Rapid) - Final Cardiology Labs/Tests 04/30/21 14:40: APTT 45.2 H 04/30/21 22:05: APTT 66.4 H 05/01/21 08:08: WBC 14.9 H, RBC 3.56 L, Hgb 9.7 L, Hct 32.2 L, MCV 90.4, MCH 27.2, MCHC 30.1 L, Plt Count 421, MPV 9.4, Immature Gran % (Auto) 0.900, Neut % (Auto) 57.4, Lymph % (Auto) 32.8, [place] % (Auto) 7.6, Eos % (Auto) 1.0, Baso % (Auto) 0.3, Absolute Neuts (auto) 8.6 H, Nucleated RBC % 0.1 05/01/21 08:08: Sodium 136, Potassium 3.7, Chloride 92 L, Carbon Dioxide 39.0 H, Anion Gap 5, BUN 53 H, Creatinine 1.75 H, Est GFR (MDRD) Af Amer 37 L, Est GFR (MDRD) Non-Af 30 L, BUN/Creatinine Ratio 30.3 H, Glucose 115 H, Calcium 9.2, Magnesium 2.5 Rhythm: EKG: ECHO: Stress Test: Cardiac Cath: PCI: CT Surgery: Holter monitor: EPS: PPM: CXR: Chest CT Scan: Physical Exam Const oriented x3 and healthy appearing Orientation / Consciousness: awake HEENT normocephalic Eyes PERRL and conjunctivae normal Neck supple, no JVD and no carotid bruits Chest inspection of chest normal Resp normal respiratory effort and clear to auscultation bilaterally Cardio Palpation: normal PMI Rate: regular rate Rhythm: regular rhythm Heart Sounds: S1 normal and S2 normal Peripheral Pulses: pulses 2+ throughout GI normal to inspection, nondistended, normoactive bowel sounds Extremity normal to inspection and no clubbing, cyanosis or edema Psych mental status grossly normal Assessment & Plan Assessment/Plan (1) Non-ST elevation [place] (NSTEMI): PLAN: She does have evidence of a non-ST elevation myocardial infarction with troponin elevating to 15. Cardiac catheterization today demonstrated the following: Normal left main coronary artery with calcification. Left anterior descending artery which is totally occluded in the midsegment with distal collateral filling in a small vessel. Left circumflex artery with moderate disease and severe disease involving an obtuse marginal branch Dominant right coronary artery which is subtotally occluded. Left ventricular systolic dysfunction estimated EF 35 to 40%. Based on the above angiographic findings and the small distal vessels it appears that medical therapy is the approach that should be undertaken at this particular time. We could have the surgeon reviewed the films as an outpatient at some later date. At this time however I would suggest optimizing medical therapy. (2) Essential hypertension: PLAN: Her blood pressure appears to be under good control and she will continue with carvedilol, isosorbide, and lisinopril Thank you for allowing me to participate in the care of your patient. Please don't hesitate to call if any issues arise.
[2021-05-01] MEDS: 0.9% Normal Saline 1,000 ML 60 ML IV (09:56)
[2021-05-01] MEDS: predniSONE 20 MG Tablet 40 MG PO (09:57)
[2021-05-01] MEDS: Montelukast 10 MG Tablet PO (09:58)
[2021-05-01] MEDS: busPIRone 5 MG Tablet 7.5 MG PO ×2 (09:58→21:33)
--- NOTE | 2021-05-01 10:51 | CASEMGMT ---
Addendum entered by Jackie Soto 05/01/21 16:22: ORVILLE let pt and sister know that precert is still pending for TCU. NINO Beck Addendum entered by Jackie Soto 05/01/21 11:34: SW let pt and sister know she is accepted in TCU and they will start the precert process. Pt has been vaccinated for COVID, SW explained to pt's sister if she provides a copy of the card to TCU then family will be able to schedule visits once pt gets to TCU, will not have to wait for 14 days. Pt and pt's sister state understanding. NINO Beck Addendum entered by Jackie Soto 05/01/21 11:02: TCU will actually have a bed for pt and will start precert. ORVILLE called [facility] and cancelled referral. NINO Beck Original Note: ORV[place]LE spoke w/pt's sister here at hospital, she provided general POA papers to SW for pt. 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 She would like pt to go to [facility]CU or [facility]. ORVILLE called TCU, there are no beds available. ORVILLE faxed referral to [facility], called and left a message. will continue to follow. NINO Beck
--- NOTE | 2021-05-01 10:56 | PCM.PN.HOSP ---
Subjective Subjective Patient seen on BiPAP apparently had a panic attack earlier on this morning. Patient is scheduled to undergo left heart catheterization Objective Data Objective Data Vital Signs: Vital Signs Temp Pulse Resp BP Pulse Ox 97.9 F 71 20 H 99/46 L 98 05/01/21 06:15 05/01/21 10:45 05/01/21 10:45 05/01/21 10:45 05/01/21 10:45 Oxygen Flow Rate (L/min) 3 Oxygen Delivery Method Room Air Weight: 104.5 kg Body Mass Index (BMI) 43.5 Intake & Output: Intake and Output for Last 24 Hours 04/29/21 04/30/21 05/01/21 23:59 23:59 23:59 Intake Total 905.5 / 1205.5 1561.85 / 1561.85 235.25 / 235.25 Output Total 2300 / 2800 1750 / 1750 300 / 300 Balance -1394.5 / -1594.5 -188.15 / -188.15 -64.75 / -64.75 Lab / Micro Data Result Diagrams: 05/01/21 08:08 05/01/21 08:08 Labs: Laboratory Results - last 24 hr 04/30/21 04/30/21 05/01/21 14:40 22:05 08:08 WBC 14.9 H RBC 3.56 L Hgb 9.7 L Hct 32.2 L MCV 90.4 MCH 27.2 MCHC 30.1 L RDW Std Deviation 44.7 H RDW Coeff of Huyen 13.4 Plt Count 421 MPV 9.4 Immature Gran % (Auto) 0.900 Neut % (Auto) 57.4 Lymph % (Auto) 32.8 [place] % (Auto) 7.6 Eos % (Auto) 1.0 Baso % (Auto) 0.3 Absolute Neuts (auto) 8.6 H Absolute Lymphs (auto) 4.90 H Nucleated RBC % 0.1 APTT 45.2 H 66.4 H Sodium Potassium Chloride Carbon Dioxide Anion Gap BUN Creatinine Estim Creat Clear Calc Est GFR (MDRD) Af Amer Est GFR (MDRD) Non-Af BUN/Creatinine Ratio Glucose Calcium Magnesium 05/01/21 08:08 WBC RBC Hgb Hct MCV MCH MCHC RDW Std Deviation RDW Coeff of [place] Plt Count MPV Immature Gran % (Auto) Neut % (Auto) Lymph % (Auto) [place] % (Auto) Eos % (Auto) Baso % (Auto) Absolute Neuts (auto) Absolute Lymphs (auto) Nucleated RBC % APTT Sodium 136 Potassium 3.7 Chloride 92 L Carbon Dioxide 39.0 H Anion Gap 5 BUN 53 H Creatinine 1.75 H Estim Creat Clear Calc 22.25 Est GFR (MDRD) Af Amer 37 L Est GFR (MDRD) Non-Af 30 L BUN/Creatinine Ratio 30.3 H Glucose 115 H Calcium 9.2 Magnesium 2.5 Micro: Microbiology 04/26/21 21:10 Blood Culture (Wb) - Right Hand Blood Culture - Preliminary No growth in 48 hours. 04/26/21 20:55 Blood Culture (Wb) - Left Hand Blood Culture - Preliminary No growth in 48 hours. 04/26/21 22:53 Urine, Clean Catch Urine Culture - Final Klebsiella pneumoniae sp pneum 04/26/21 21:00 Mucosa - Nasopharyngeal SARS-CoV-2 Antigen (Rapid) - Final Physical Exam Narrative GENERAL: cooperative HEENT: Atraumatic; EYES; Anicteric, Normal Conjunctiva NECK; supple, normal thyroid, RESPIRATORY: Diminished to auscultation CARDIOVASCULAR: Regular S1 S2, GI: soft, normoactive bowel sounds, : No Renal angle tenderness; EXTREMITIES: No edema, no clubbing, MUSCULOSKELETAL: no muscle waisting NEURO: Awake; no lateralizing signs. SKIN: No Rash PSYCH; Flat affect Assessment & Plan Assessment/Plan (1) Non-ST elevation [place] (NSTEMI): PLAN: Patient is a 70-year-old lady admitted with left arm pain. Her evaluation came back consistent with acute non-STEMI admitted to a monitored bed treatment initiated per protocol plan is for patient to undergo left heart catheterization with possible intervention on 05/01/2021 1. Acute non-STEMI ?Patient managed per protocol with systemic anticoagulation, dual antiplatelet therapy and heparin. Consultation placed to cardiology plan is for patient to undergo left heart catheterization on 05/01/2021 -05/01/2021 underwent left heart catheterization this a.m. findings included Severe triple-vessel disease involving a totally occluded left anterior descending artery with left to left collaterals filling the distal LAD in a small vessel with small caliber. Left circumflex artery with diffuse disease; and a totally occluded right coronary artery. Cardiology recommended optimization of medical therapy 2. Acute hypoxic respiratory failure -secondary to combination of COPD and CHF with preserved ejection fraction patient managed with supplemental oxygen 3. COPD ?Managed with bronchodilator at therapy and systemic steroid 4. Acute congestive heart failure with preserved ejection fraction ?2D echo obtained on 04/27/2021 demonstrated EF of 50%. Patient is on Lasix did continue 5. Dyslipidemia -Patient is on statin therapy, continued at home dose 6. Hypertension - Blood pressure controlled, home medications continued with dose adjustment as needed 7. Acute cystitis with Klebsiella ?Patient managed with Rocephin 8. Systemic use of anticoagulation ?Reason unclear patient has history of previous CVA?? 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 Coumadin held patient started on heparin 9. DVT prophylaxis ?On systemic anticoagulation 10. Physical deconditioning - Requested for PT OT eval and community mental health social worker to assist with discharge planning Visit Charges Inpatient E&M: 83702 Subs Hosp L2
[2021-05-01] MEDS: Isosorbide DN 10 MG Tablet PO ×2 (13:27→21:34)
--- NOTE | 2021-05-01 15:58 | CASEMGMT ---
Pt screened with Palliative Care Screening Tool d/t strata 3, pt met criteria. TC to dtr and explained Palliative per 's request. She verbalized understanding and agreed for evaluation. Faxed referral at this time.
[2021-05-01] MEDS: Atorvastatin Calcium 20 MG Tablet PO (21:33)
[2021-05-01] MEDS: Ceftriaxone 1 GM/50 ML BAG IV (23:14)
[2021-05-02] VITALS (7 sets, daily range): BP systolic 128–133; BP diastolic 62–97; PULSE 71–108; RESP 12–28; TEMP 36.6–36.9; O2SAT 93–95
[2021-05-02] MEDS: Acetaminophen 325 MG Tablet 650 MG PO ×2 (05:20→12:52)
[2021-05-02] MEDS: oxyCODONE 5 MG Tablet PO ×2 (05:21→12:52)
[2021-05-02] MEDS: Isosorbide DN 10 MG Tablet PO (05:22)
[2021-05-02 06:43] LABS: Absolute Lymphocyte Count 3.13 X10^3/uL (0.83-4.51); Absolute Neutrophil Count 10.4 X10^3/uL (2.0-7.7); Basophil# 0.02 X10^3/uL; Basophil% 0.1 % (0-1); Eosinophil# 0.01 X10^3/uL; Eosinophils% 0.1 % (0-5); Hematocrit 30.5 % (37-47); Hemoglobin 9.5 g/dL (12.0-15.0); Lymphocyte # 3.13 X10^3/ul (0.83-4.51); Lymphocyte % 21.1 % (19-41); Mean Corp Hgb Conc 31.1 g/dL (32-36); Mean Corpuscular Hgb 27.7 pg (27.0-32.0); Mean Corpuscular Volume 88.9 fL (81-99); Mean Platelet Vol. 9.6 fl (6.2-12.0); Monocyte# 1.09 X10^3/uL; Monocyte% 7.3 % (0-10); NRBC Flagged by Analyzer 0 % (0-5); Neutrophil # 10.43 X10^3/uL (2.7-7.7); Neutrophil % 70.4 % (47-70); Platelet Count 427 K/mm3 (150-450); RBC Distribution Width CV 13.8 % (11.6-14.6); RBC Distribution Width SD 44.5 fl (35.1-43.9); Red Blood Count 3.43 M/mm3 (4.2-5.4); White Blood Count 14.8 K/mm3 (4.4-11.0)
[2021-05-02 07:05] LABS: Anion Gap 8 (5-15); BUN 58 mg/dL (7-18); Calcium,Total 8.9 mg/dL (8.5-10.1); Chloride 91 mmol/L (98-107); Creatinine, Serum 1.76 mg/dL (0.55-1.02); EST Glomerular Filtration Rate 30 mL/min (>60); Est Glom Filt Rate - Afr Amer 37 mL/min (>60); Estimated Creatinine Clearance 22.12 ml/min; Glucose 126 mg/dL (74-106); Sodium Level 134 mmol/L (136-145)
[2021-05-02] MEDS: Ipratropium/Albuterol Sulfate 3 ML AMPUL.NEB INHALATION ×2 (07:07→11:18)
--- NOTE | 2021-05-02 08:03 | CASEMGMT ---
Pt's sister called in asking if SW has heard anything yet in regard to pt being approved for TCU. SW explained that SW has not heard anything, will let her know as soon as SW hears anything. Pt's sister explained she has a doctor appointment this morning, but confirmed she is reachable by phone. SW explained will call her on her cell phone should SW hear anything regarding pt's precert to TCU. SW will continue to follow. NINO Beck
[2021-05-02] MEDS: LORazepam 2 MG/ML Syringe 1 MG IV (08:51)
[2021-05-02] MEDS: 0.9% Saline Lock 10 ML Syringe IV (08:51)
[2021-05-02] MEDS: Aspirin E.C. 81 MG Tablet PO (08:52)
[2021-05-02] MEDS: predniSONE 20 MG Tablet 40 MG PO (08:53)
[2021-05-02] MEDS: Furosemide 40 MG/4 ML Vial IV (09:14)
[2021-05-02] MEDS: busPIRone 5 MG Tablet 7.5 MG PO (09:14)
[2021-05-02] MEDS: Montelukast 10 MG Tablet PO (09:15)
[2021-05-02] MEDS: Clopidogrel Bisulfate 75 MG Tablet PO (09:15)
[2021-05-02] MEDS: Lisinopril 10 MG Tablet PO (09:15)
[2021-05-02] MEDS: Carvedilol 6.25 MG Tablet PO (09:15)
--- NOTE | 2021-05-02 10:12 | CASEMGMT ---
Addendum entered by Jackie Soto 05/02/21 11:17: SW faxed all discharge instructions to TCU, spoke w/pt's sister again in the room and let her know all paperwork is complete, and pt will be able to go to TCU once RN calls to see when they are ready for her. Pt is still asleep at this time. Pt will be notified going to TCU when she wakes up. NINO Beck Original Note: Pt was approved to go to TCU today. SW attempted to let pt know, she is sleeping. SW called pt's sister, Carmen, let her know pt was approved to go to TCU and will be going over most likely this afternoon. Carmen states understanding. Physician also notified that pt can go to TCU today. NINO Beck
--- NOTE | 2021-05-02 10:19 | TREXTCAR_ITS ---
Diet 05/01/21 13:16 Diet: Cardiac - Heart Healthy Is pt able to select menu?: No Routine Orders/Code Status O2 Frequency: Continuous Keep PO Greater than or Equal to (%): 90 Routine Lab Work: INR (On 05/04/2021) Wound(s) Right radial arterial: Wound Type: Puncture Therapies Physical Therapy: Eval and Treat Occupational Therapy: Eval and Treat Speech Therapy: Eval and Treat Problem/Diagnosis (1) Non-ST elevation [place] (NSTEMI): Status: Acute Allergies/Procedures Done in Hospital Allergies contact metal agent Allergy (Verified 04/27/21 17:40) Rash Procedures: Cardiac catheterization Type of Care/Length of Stay Estimated LOS: Convalescent Care Less Than 30 days Type of Care Needed: Skilled Rehab Potential: Good Prognosis: Good Additional Orders/Day of Discharge Day of Discharge: 05/02/21 Dietary and Speech Recommendations Dietitian Recommendations/Changes: continue cardiac diet; recommend DIRECTOR OF PROGRAM MANAGEMENT evalu ation if issues w/ chewing/swallowing interfere w/ PO intake. Discharge Plan Admission Admit Date/Time: 04/27/21 00:18 Attending Provider: Clifford Bland Primary Care Provider: Romario Aguilar Consulting Providers: Tiffany Hernandez Discharge Orders/Prescriptions Prescriptions: New clopidogrel 75 mg Tablet 75 mg PO DAILY Qty: 0 RF: 0 Continued aspirin 81 mg tablet,delayed release (DR/EC) 81 mg PO QDAY RF: 0 (DME) home oxygen Qty: 1 RF: 0 lisinopril 10 mg tablet 10 mg PO QDAY Qty: 90 RF: 3 (DME) nebulizer See Rx Instructions .Route .MEDSUPPLY Qty: 1 RF: 0 albuterol sulfate 1.25 mg/3 mL solution for nebulization 1.25 mg INHALATION Q6H Qty: 90 RF: 1 simvastatin 40 mg tablet 40 mg PO QAM Qty: 90 RF: 1 Spiriva Respimat 2.5 mcg/actuation mist 2 puff INHALATION QDAY Qty: 4 RF: 4 Hold Instructions: Duplicate Order Symbicort 160-4.5 mcg/actuation HFA aerosol inhaler 2 puff INHALATION BID Qty: 10.2 RF: 3 warfarin 5 mg tablet 5 mg PO QDAY Qty: 90 RF: 1 warfarin 2 mg tablet 2 mg PO .COMPLEX Qty: 30 RF: 0 trazodone 100 mg tablet 100 mg PO QHS PRN (Reason: sleep) Qty: 30 RF: 2 isosorbide mononitrate 30 mg tablet extended release 24 hr 30 mg PO QHS Qty: 30 RF: 12 buspirone 7.5 mg tablet 7.5 mg PO BID Qty: 3 RF: 2 albuterol sulfate 1.25 mg/3 mL solution for nebulization 1.25 mg INHALATION Q6H Qty: 180 RF: 4 montelukast 10 mg tablet 10 mg PO DAILY Qty: 30 RF: 3 Changed furosemide [Lasix] 40 mg tablet 40 mg PO BIDCM Qty: 90 RF: 3 carvedilol [Coreg] 3.125 mg tablet 6.25 mg PO BID Qty: 60 RF: 11 Referrals / Follow Up: Romario Aguilar DO [Primary Care Provider] - Within 2 Weeks Disposition Disposition (needs filled in before D/C Order can be placed): [facility]
--- NOTE | 2021-05-02 10:29 | PCM.DC.SUM ---
Providers Date of Admission: 04/27/21 Primary Care Physician: Dr. Romario Aguilar, DO Consultations 04/27/21 04:24 Consult: Cardiology Routine Consulting Provider: Tiffany Hernandez Reason for Consult: Non-ST ovation MO. EMERGENT Consult: No MD Notified: Yes Date Notified:: 04/27/21 Time Notified: 04:24 Method of Notification: Verbal Reason For Visit: ACUTE CYSTITIS, ABNORMAL TROPONIN Diagnosis Discharge Diagnosis (1) Non-ST elevation [place] (NSTEMI): Status: Acute Code(s): I21.4 - Non-ST elevation (NSTEMI) myocardial infarction Medications at Discharge Home Medications aspirin 81 mg tablet,delayed release 81 mg PO QDAY 03/25/18 home oxygen #1 ea 08/24/20 lisinopril 10 mg tablet 10 mg PO QDAY #90 tab 08/24/20 albuterol sulfate 1.25 mg/3 mL solution for nebulization 1.25 mg INHALATION Q6H #90 vial 11/01/20 nebulizer #1 ea 11/01/20 albuterol sulfate 1.25 mg/3 mL solution for nebulization 1.25 mg INHALATION Q6H #180 ml 11/16/20 simvastatin 40 mg tablet 40 mg PO QAM #90 tab 12/06/20 budesonide-formoterol HFA 160 mcg-4.5 mcg/actuation aerosol inhaler 2 puff INHALATION BID #10.2 g 01/10/21 tiotropium bromide 2.5 mcg/actuation mist for inhalation 2 puff INHALATION QDAY #4 g 01/10/21 warfarin 2 mg tablet 2 mg PO .COMPLEX #30 tab 01/10/21 warfarin 5 mg tablet 5 mg PO QDAY #90 tab 01/10/21 trazodone 100 mg tablet 100 mg PO QHS PRN #30 tablet 02/21/21 isosorbide mononitrate 30 mg tablet,extended release 24 hr 30 mg PO QHS #30 tablet 03/01/21 montelukast 10 mg tablet 10 mg PO DAILY #30 tab 04/16/21 buspirone 7.5 mg PO BID #3 tab 05/02/21 carvedilol [Coreg] 6.25 mg PO BID #60 tab 05/02/21 clopidogrel 75 mg PO DAILY #0 tab 05/02/21 furosemide [Lasix] 40 mg PO BIDCM #90 tablet 05/02/21 Hospital Course Procedures Cardiac catheterization Summary of Care Provided Minutes Spent on Discharge: 55 Hospital Course: Patient is a 70-year-old lady admitted with left arm pain. Her evaluation came back consistent with acute non-STEMI admitted to a monitored bed treatment initiated per protocol plan is for patient to undergo left heart catheterization with possible intervention on 05/01/2021 1. Acute non-STEMI ?Patient managed per protocol with systemic anticoagulation, dual antiplatelet therapy and heparin. Consultation placed to cardiology plan is for patient to undergo left heart catheterization on 05/01/2021 -05/01/2021 underwent left heart catheterization this a.m. findings included Severe triple-vessel disease involving a totally occluded left anterior descending artery with left to left collaterals filling the distal LAD in a small vessel with small caliber. Left circumflex artery with diffuse disease; and a totally occluded right coronary artery. Cardiology recommended optimization of medical therapy 2. Acute hypoxic respiratory failure -secondary to combination of COPD and CHF with preserved ejection fraction patient managed with supplemental oxygen 3. COPD ?Managed with bronchodilator at therapy and systemic steroid 4. Acute congestive heart failure with preserved ejection fraction ?2D echo obtained on 04/27/2021 demonstrated EF of 50%. Patient is on Lasix did continue 5. Dyslipidemia -Patient is on statin therapy, continued at home dose 6. Hypertension - Blood pressure controlled, home medications continued with dose adjustment as needed 7. Acute cystitis with Klebsiella ?Patient managed with Rocephin 8. Systemic use of anticoagulation ?Reason unclear patient has history of previous CVA?? 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 Coumadin held patient started on heparin 9. DVT prophylaxis ?On systemic anticoagulation 10. Physical deconditioning - Requested for PT OT eval and addiction social worker to assist with discharge planning Physical Exam Narrative GENERAL: cooperative HEENT: Atraumatic; EYES; Anicteric, Normal Conjunctiva NECK; supple, normal thyroid, RESPIRATORY: Diminished to auscultation CARDIOVASCULAR: Regular S1 S2, GI: soft, normoactive bowel sounds, : No Renal angle tenderness; EXTREMITIES: No edema, no clubbing, MUSCULOSKELETAL: no muscle waisting NEURO: Awake; no lateralizing signs. SKIN: No Rash PSYCH; Flat affect ABG / Lab / Microbiology Data Result Diagrams: 05/02/21 06:20 05/02/21 06:20 Laboratory: Laboratory Results - last 24 hr 05/02/21 05/02/21 06:20 06:20 WBC 14.8 H RBC 3.43 L Hgb 9.5 L Hct 30.5 L MCV 88.9 MCH 27.7 MCHC 31.1 L RDW Std Deviation 44.5 H RDW Coeff of [place] 13.8 Plt Count 427 MPV 9.6 Immature Gran % (Auto) 1.000 H Neut % (Auto) 70.4 H Lymph % (Auto) 21.1 [place] % (Auto) 7.3 Eos % (Auto) 0.1 Baso % (Auto) 0.1 Absolute Neuts (auto) 10.4 H Absolute Lymphs (auto) 3.13 Nucleated RBC % 0 Sodium 134 L Potassium 4.0 Chloride 91 L Carbon Dioxide 35.0 H Anion Gap 8 BUN 58 H Creatinine 1.76 H Estim Creat Clear Calc 22.12 Est GFR (MDRD) Af Amer 37 L Est GFR (MDRD) Non-Af 30 L BUN/Creatinine Ratio 33.0 H Glucose 126 H Calcium 8.9 Microbiology: Microbiology 04/26/21 21:10 Blood Culture - Final Blood Culture (Wb) - Right Hand No growth in 5 days. 04/26/21 20:55 Blood Culture - Final Blood Culture (Wb) - Left Hand No growth in 5 days. Microbiology 04/26/21 21:10 Blood Culture (Wb) - Right Hand Blood Culture - Final No growth in 5 days. 04/26/21 20:55 Blood Culture (Wb) - Left Hand Blood Culture - Final No growth in 5 days. 04/26/21 22:53 Urine, Clean Catch Urine Culture - Final Klebsiella pneumoniae sp pneum 04/26/21 21:00 Mucosa - Nasopharyngeal SARS-CoV-2 Antigen (Rapid) - Final D/C Instructions Discharge Diet: Low fat / Low cholesterol Discharge Activity: Return to Normal Activity Call your doctor if you observe: Fever of 101 or Higher, Shortness of breath, Fainting spells and Chest pain Meaningful Use Info Meaningful Use Diagnoses (Choose all that apply): AMI AMI/Post PCI/Angioplasty Aspirin given w/in 24hrs of arrival?: Yes ASA at discharge?: Yes Antiplatelet Therapy at Discharge:: Yes Statins at discharge?: Yes Jose/ARB at discharge?: Yes Beta Miguel at discharge?: Yes Done w/ Acute MO measure.: Yes Documented LVEF (%): 50 Discharge Plan Admission Admit Date/Time: 04/27/21 00:18 Attending Provider: Clifford Bland Primary Care Provider: Romario Aguilar Consulting Providers: Tiffany Hernandez Discharge Orders/Prescriptions Prescriptions: New clopidogrel 75 mg Tablet 75 mg PO DAILY Qty: 0 RF: 0 Continued aspirin 81 mg tablet,delayed release (DR/EC) 81 mg PO QDAY RF: 0 (DME) home oxygen Qty: 1 RF: 0 lisinopril 10 mg tablet 10 mg PO QDAY Qty: 90 RF: 3 (DME) nebulizer See Rx Instructions .Route .MEDSUPPLY Qty: 1 RF: 0 albuterol sulfate 1.25 mg/3 mL solution for nebulization 1.25 mg INHALATION Q6H Qty: 90 RF: 1 simvastatin 40 mg tablet 40 mg PO QAM Qty: 90 RF: 1 Spiriva Respimat 2.5 mcg/actuation mist 2 puff INHALATION QDAY Qty: 4 RF: 4 Hold Instructions: Duplicate Order Symbicort 160-4.5 mcg/actuation HFA aerosol inhaler 2 puff INHALATION BID Qty: 10.2 RF: 3 warfarin 5 mg tablet 5 mg PO QDAY Qty: 90 RF: 1 warfarin 2 mg tablet 2 mg PO .COMPLEX Qty: 30 RF: 0 trazodone 100 mg tablet 100 mg PO QHS PRN (Reason: sleep) Qty: 30 RF: 2 isosorbide mononitrate 30 mg tablet extended release 24 hr 30 mg PO QHS Qty: 30 RF: 12 buspirone 7.5 mg tablet 7.5 mg PO BID Qty: 3 RF: 2 albuterol sulfate 1.25 mg/3 mL solution for nebulization 1.25 mg INHALATION Q6H Qty: 180 RF: 4 montelukast 10 mg tablet 10 mg PO DAILY Qty: 30 RF: 3 Changed furosemide [Lasix] 40 mg tablet 40 mg PO BIDCM Qty: 90 RF: 3 carvedilol [Coreg] 3.125 mg tablet 6.25 mg PO BID Qty: 60 RF: 11 Referrals / Follow Up: Romario Aguilar, [Primary Care Provider] - Within 2 Weeks Disposition Disposition (needs filled in before D/C Order can be placed): [facility] Facility Visit Charges Inpatient E&M: 22585 Disch Hosp
--- NOTE | 2021-05-02 10:43 | PHA.DC.MR ---
Pharmacy Service has performed discharge medication reconciliation for this patient. The patient's discharge medication list was reviewed for discrepancies and discrepancies were resolved. Home Medications aspirin 81 mg tablet,delayed release 81 mg PO QDAY 03/25/18 home oxygen #1 ea 08/24/20 lisinopril 10 mg tablet 10 mg PO QDAY #90 tab 08/24/20 albuterol sulfate 1.25 mg/3 mL solution for nebulization 1.25 mg INHALATION Q6H #90 vial 11/01/20 nebulizer #1 ea 11/01/20 albuterol sulfate 1.25 mg/3 mL solution for nebulization 1.25 mg INHALATION Q6H #180 ml 11/16/20 simvastatin 40 mg tablet 40 mg PO QAM #90 tab 12/06/20 budesonide-formoterol HFA 160 mcg-4.5 mcg/actuation aerosol inhaler 2 puff INHALATION BID #10.2 g 01/10/21 tiotropium bromide 2.5 mcg/actuation mist for inhalation 2 puff INHALATION QDAY #4 g 01/10/21 warfarin 2 mg tablet 2 mg PO .COMPLEX #30 tab 01/10/21 warfarin 5 mg tablet 5 mg PO QDAY #90 tab 01/10/21 trazodone 100 mg tablet 100 mg PO QHS PRN #30 tablet 02/21/21 isosorbide mononitrate 30 mg tablet,extended release 24 hr 30 mg PO QHS #30 tablet 03/01/21 montelukast 10 mg tablet 10 mg PO DAILY #30 tab 04/16/21 buspirone 7.5 mg PO BID #3 tab 05/02/21 carvedilol [Coreg] 6.25 mg PO BID #60 tab 05/02/21 clopidogrel 75 mg PO DAILY #0 tab 05/02/21 furosemide [Lasix] 40 mg PO BIDCM #90 tablet 05/02/21
--- NOTE | 2021-05-02 10:56 | PCM.CONS.P ---
Assessment & Plan Assessment/Plan (1) Debility: (2) Shortness of breath: (3) Weakness: (4) Non-ST elevation MD (NSTEMI): (5) Multi-vessel coronary artery stenosis: (6) Insomnia: QUALIFIERS: Insomnia type: primary Qualified Code(s): F51.01 - Primary insomnia (7) COPD (chronic obstructive pulmonary disease): QUALIFIERS: COPD type: unspecified COPD Qualified Code(s): J44.9 - Chronic obstructive pulmonary disease, unspecified (8) Ataxia: (9) Dysphasia: (10) Atherosclerotic heart disease of [place] coronary artery without angina pectoris: QUALIFIERS: [place] vs. transplanted heart: [place] heart Qualified Code(s): I25.10 - Atherosclerotic heart disease of [place] coronary artery without angina pectoris (11) Lymphedema: (12) History of CVA (cerebrovascular accident): (13) Essential hypertension: (14) Morbid obesity with BMI of 40.0-44.9, adult: PLAN: 70-year-old female being seen today for initial palliative care consultation secondary to debility and weakness, has been progressive over the last 6 months. She is hospitalized with a non-STEMI and acute cystitis, as well as acute CHF and hypoxic respiratory failure. Being discharged to TCU for further rehab. 1. Debility and weakness: Again, has been progressive over the past 6 months. She will require ongoing therapy, unclear if she will be able to be discharged home with her sister or require ECF. 2. Shortness of breath: Multifactorial given her acute on chronic CHF and now NSTEMI. She was diuresed. Placed on systemic steroids and bronchodilator for COPD. SOB definitely contributing to her debility and weakness, she is unable to take more than a few steps without significant dyspnea. No current changes recommended, would first control underlying conditions and may consider pharmacological/opioid management in the future if dyspnea is severe. 3. Multivessel coronary artery disease: Cardiology recommends conservative management 4. History of CVA/hypertension/lymphedema/morbid obesity/insomnia: Complicates overall care, management, recovery and prognosis. Managed per PCP and specialist. Thank you for the opportunity to participate in this patient's care, please do not hesitate to contact [facility] with any further questions or concerns. Palliative direct line is [phone]. We will follow up after discharge to home and will discuss palliative services further at that time. Our community services manager may be out in next few days to get patient signed on for services. Gave contact info to Carmen Lange. She is receptive to services. Greater than 50% of F2F visit dedicated to education and counseling of palliative care services, medications, comorbid conditions and potential assistance with management, and plan of care moving forward. Start time: 1050 End time: 1143 HPI Consult Data Date of Consult: 05/02/21 HPI Narrative HPI Narrative: MERLE BUSTILLO, is a 70 F who presented to [facility] with left arm pain, evaluated in the ED and found to have acute non-STEMI. Cardiology consulted and underwent heart cath 05/01/2021, which showed severe triple-vessel disease with a totally occluded LAD with collaterals, left circumflex artery with diffuse disease, and a totally occluded right coronary artery. Cardiology recommended optimization of medical therapy. He was placed on Plavix, already on ASA, SUREKHA inhibitor, and beta-rema with Coreg. Hospital course complicated by acute hypoxemic respiratory failure in setting of COPD and CHF. Patient was diuresed and given bronchodilators and systemic steroids. Was treated with acute cystitis with Klebsiella, managed with Rocephin. Patient seen today for palliative care consultation secondary to progressive decline over the last 6 months, weakness, debility, and multiple comorbidities which require symptom management. Patient does sleep in a recliner due to her symptoms. Follows with Dr. Morel for cardiology and her PCP is Dr. Romario Aguilar. Patient has significant expressive aphasia, she was able to tell me that her right lower extremity is chronically painful. Her sister Carmen is present during evaluation. She states she has never had a work-up for the right leg pain. She takes Tylenol but it really does not do anything. She does not believe there has ever been any imaging to her low back or hip. Carmen reports significant weakness on the right leg as well. Does have some chronic low back pain, none currently. No n/v/d. No abdominal pain. Has smith catheter. Plan for discharge today to the transitional care unit for further rehabilitation. Patient sister Carmen typically cares for her, has for the last 3 years. She is her healthcare power of statue carver. Patient lives in a one-story home with no steps to enter. Able to bathe and dress herself, however has been significantly more difficult for her to do so lately. Patient does have some baseline confusion, Carmen helps her with her medications. She also takes her to all her appointments. DME in the home include shower chair, hand-held shower, rails and grab bars, cane, nebulizer, O2 at 3 L/min continuously through [employer]. She has a walker but does not use it. Uses [facility] for pharmacy. Carmen reports her goal of getting Merle back home with her, she thinks she will probably need a hospital bed for bed mobility and since she cannot sleep lying down. [facility] Medical History Atherosclerotic heart disease of [place] coronary artery without angina pectoris Chronic bronchitis COPD (chronic obstructive pulmonary disease) Dysphasia Essential hypertension Former smoker History of CVA (cerebrovascular accident) History of successful cardiopulmonary resuscitation Insomnia Lymphedema Obesity Home Medications aspirin 81 mg tablet,delayed release 81 mg PO QDAY 03/25/18 [History Last Taken 08/22/20] home oxygen #1 ea 08/24/20 [Rx Last Taken Unknown] lisinopril 10 mg tablet 10 mg PO QDAY #90 tab 08/24/20 [Rx Last Taken Unknown] albuterol sulfate 1.25 mg/3 mL solution for nebulization 1.25 mg INHALATION Q6H #90 vial 11/01/20 [Rx Last Taken Unknown] nebulizer #1 ea 11/01/20 [Rx Last Taken Unknown] albuterol sulfate 1.25 mg/3 mL solution for nebulization 1.25 mg INHALATION Q6H #180 ml 11/16/20 [Rx Last Taken Unknown] simvastatin 40 mg tablet 40 mg PO QAM #90 tab 12/06/20 [Rx Last Taken Unknown] budesonide-formoterol HFA 160 mcg-4.5 mcg/actuation aerosol inhaler 2 puff INHALATION BID #10.2 g 01/10/21 [Rx Last Taken Unknown] tiotropium bromide 2.5 mcg/actuation mist for inhalation 2 puff INHALATION QDAY #4 g 01/10/21 [Rx Last Taken Unknown] warfarin 2 mg tablet 2 mg PO .COMPLEX #30 tab 01/10/21 [Rx Last Taken Unknown] warfarin 5 mg tablet 5 mg PO QDAY #90 tab 01/10/21 [Rx Last Taken Unknown] trazodone 100 mg tablet 100 mg PO QHS PRN #30 tablet 02/21/21 [Rx Last Taken Unknown] isosorbide mononitrate 30 mg tablet,extended release 24 hr 30 mg PO QHS #30 tablet 03/01/21 [Rx Last Taken Unknown] montelukast 10 mg tablet 10 mg PO DAILY #30 tab 04/16/21 [Rx Last Taken Unknown] buspirone 7.5 mg PO BID #3 tab 05/02/21 [Rx Last Taken Unknown] carvedilol [Coreg] 6.25 mg PO BID #60 tab 05/02/21 [Rx Last Taken Unknown] clopidogrel 75 mg PO DAILY #0 tab 05/02/21 [Rx Last Taken Unknown] furosemide [Lasix] 40 mg PO BIDCM #90 tablet 05/02/21 [Rx Last Taken Unknown] Allergy/AdvReac Type Severity Reaction Status Date / Time contact metal agent Allergy Rash Verified 04/27/21 17:40 Family History Brother Heart disease Father Cancer Grandfather Cancer Sister Diabetes Surgical History History of appendectomy History of left heart catheterization (05/01/21) History of tonsillectomy Social History Smoking Status: Former smoker quit date: 12/01/19 pack-years: 55 alcohol intake: never substance use type: does not use what type of physical activity do you participate in: none ROS ROS Narrative Limited ROS secondary to cognitive deficits and expressive aphasia Review of systems otherwise negative from a constitutional, HEENT, respiratory, cardiovascular, GI, genitourinary, musculoskeletal, skin, neurologic, psychiatric and hematologic system unless stated above. Physical Exam Const alert and no apparent distress General Appearance: cooperative and appears older than stated age Orientation / Consciousness: oriented to person and oriented to place Exam Limitations: other limitations HEENT normocephalic and head/scalp atraumatic Neck supple General: trachea midline Resp Auscultation: clear to auscultation bilaterally and diminished lung sounds; Negative for rales or rhonchi Cardio S1 normal heart sound and S2 normal heart sound GI normal to inspection, nondistended, normoactive bowel sounds Back/Spine Cervical Spine: cervical spine tenderness Extremity no pedal edema Right Lower Extremity: upper leg Positive for palpation (tender) Skin no rashes or lesions noted Neuro Speech: expressive aphasia Gait (Neuro): unable to assess gait Motor Exam: general weakness Psych Mood & Affect: anxious
== END 2021-05-02 13:34 | disposition skilled nursing facility (03) | DRG 189 ==
LOC: ED 23:48 → PCU 04-27 00:26
PROVIDERS: Internal Medicine Interventional Cardiology; Physician Assistant; Admitting Provider Hospitalist; Emergency Provider Emergency Medicine; PCP Family Medicine; Visit Provider Internal Medicine
DX: J96.21 Acute and chronic respiratory failure with hypoxia (principal); I21.4 Non-ST elevation (NSTEMI) myocardial infarction; G93.41 Metabolic encephalopathy; I50.33 Acute on chronic diastolic (congestive) heart failure; J44.1 Chronic obstructive pulmonary disease with (acute) exacerbation; Z68.41 Body mass index [BMI] 40.0-44.9, adult; N30.00 Acute cystitis without hematuria; I11.0 Hypertensive heart disease with heart failure; I25.10 Atherosclerotic heart disease of native coronary artery without angina pectoris; B96.1 Klebsiella pneumoniae [K. pneumoniae] as the cause of diseases classified elsewhere; E78.5 Hyperlipidemia, unspecified; I89.0 Lymphedema, not elsewhere classified; F41.9 Anxiety disorder, unspecified; I69.322 Dysarthria following cerebral infarction; I69.320 Aphasia following cerebral infarction; Z20.822 Contact with and (suspected) exposure to COVID-19; R27.0 Ataxia, unspecified; R47.02 Dysphasia; F41.0 Panic disorder [episodic paroxysmal anxiety]; E66.9 Obesity, unspecified; Z99.81 Dependence on supplemental oxygen; Z79.01 Long term (current) use of anticoagulants; Z79.02 Long term (current) use of antithrombotics/antiplatelets; Z79.82 Long term (current) use of aspirin; Z79.899 Other long term (current) drug therapy; Z87.891 Personal history of nicotine dependence
CPT/HCPCS: 36415; 70450; 70551; 71045; 80048; 80053; 81001; 83605; 83735; 84484; 85025; 85610; 85730; 87040; 87077; 87086; 87088; 87186; 87426; 93005; 93306; 93458; 94002; 94003; 94640; 97110; 97116; 97162; 97166; 97530; 97802; 99152; 99153; 99251; 99285; Q9957; Q9967; A4216; C1769; C1894; C8929; G0463; J1938

== ENCOUNTER 2021-05-02 13:30 | Inpatient (IN) | payer MEDICARE, MEDICAID, SELFPAY ==
[2021-04-27 01:05] VITALS: BMI 43.5
[2021-05-02 13:48] VITALS: BP 87/47; PULSE 80; RESP 20; TEMP 36.2; O2SAT 93; BMI 43.1
[2021-05-02 15:00] VITALS: O2SAT 94
[2021-05-02 15:05] VITALS: O2SAT 93
--- NOTE | 2021-05-02 15:08 | CASEMGMT ---
Social Work Met with patient for initial assessment. Sister, Carmen, present in room. Pt has very limited verbal communication d/t stroke in 2001. Pt uses notepad to communicate. Sister assisted with answering questions. Explained [facility] insurance with [employer] 05/07 and continued stay is not guaranteed. The goal is for pt to return home living with sister whom assists her with IADLs. Discussed code status. Pt confirms full code. MOLST form reviewed, communication to , and placed in chart. Sister states and pt confirms she is HCPOA - asked to bring in documents. SW to continue to follow. Magali Morgan, MANAGER KNOWLEDGE CLAIMS CORRESPONDENCE CLERK
[2021-05-02] MEDS: Jantoven 2 MG Tablet PO (16:17)
[2021-05-02] MEDS: busPIRone 5 MG Tablet 7.5 MG PO (16:40)
--- NOTE | 2021-05-02 19:34 | HP.PCM_ITS ---
HPI - General General Date of Admission: 05/02/21 HPI Narrative 04/26/2021 DEDRICK BUSTILLO, is a 70 Female who presents to [facility] Emergency Department with shortness of breath. 04/26/2021 EKG showed sinus tachycardia, marked ST abnormality, possible lateral subendocardial injury. Trouble with walking, balance. COPD on chronic oxygen 3 liters per nasal cannula. CT head showed left sided encephalomalacia. Not TPA candidate due to being on coumadin, low suspicion for stroke. UTI treated with Rocephin. 04/27/2021 Admit to Hospital. Rocephin IV for urinary tract infection, urine culture pending. Steroids, nebulizer, for COPD exacerbation. Cycle enzymes for abnormal troponin. MRI brain to rule out stroke. MRI brain negative for acute stroke. 04/27/2021 Echo EF 50%. Mild left ventricular systolic dysfunction. Mild apical hypokinesis. 04/27/2021 Dr. Hernandez recommended adding Plavix for NSTEMI. 04/27/2021 Stress test negative. BiPAP, oxygen for acute respiratory failure with hypoxia. 04/28/2021 Urine culture grew Klebsiella, continue Rocephin. Prednisone for COPD exacerbation. Dysarthria chronic for previous stroke. 04/29/2021 Troponin 12.9. Stop Coumadin, Start Heparin, plan cardiac catheterization. 05/01/2021 Heart cath showed multi vessel disease. Recommend medical management. PT/OT for [facility]. 05/02/2021 Admit to TCU with debility, here for rehabilitation, strengthening, prior to discharge home with family. Resident complained of right thigh swelling, pain, will order Doppler ultrasound right lower extremity to rule out DVT. [facility] Medical History Atherosclerotic heart disease of [place] coronary artery without angina pectoris Chronic bronchitis COPD (chronic obstructive pulmonary disease) Dysphasia Essential hypertension Former smoker History of CVA (cerebrovascular accident) History of successful cardiopulmonary resuscitation Insomnia Lymphedema Obesity Home Medications aspirin 81 mg tablet,delayed release 81 mg PO QDAY 03/25/18 [History Last Taken 08/22/20] home oxygen #1 ea 08/24/20 [Rx Last Taken Unknown] nebulizer #1 ea 11/01/20 [Rx Last Taken Unknown] albuterol sulfate 1.25 mg/3 mL solution for nebulization 1.25 mg INHALATION Q6H #180 ml 11/16/20 [Rx Last Taken Unknown] trazodone 100 mg tablet 100 mg PO QHS PRN #30 tablet 02/21/21 [Rx Last Taken Unknown] Spiriva Respimat 2 puff INHALATION QDAY 05/02/21 [History Last Taken Unknown] albuterol sulfate 1.25 mg INHALATION Q6H 05/02/21 [History Last Taken Unknown] budesonide-formoterol [Symbicort] 2 puff INHALATION BID 05/02/21 [History Last Taken Unknown] buspirone 7.5 mg PO BID 05/02/21 [History Last Taken Unknown] carvedilol [Coreg] 6.25 mg PO BID 05/02/21 [History Last Taken Unknown] clopidogrel 75 mg PO DAILY 05/02/21 [History Last Taken Unknown] furosemide [Lasix] 40 mg PO BIDCM 05/02/21 [History Last Taken Unknown] isosorbide mononitrate 30 mg PO QHS 05/02/21 [History Last Taken Unknown] lisinopril 10 mg PO QDAY 05/02/21 [History Last Taken Unknown] montelukast 10 mg PO DAILY 05/02/21 [History Last Taken Unknown] simvastatin 40 mg PO QAM 05/02/21 [History Last Taken Unknown] warfarin 2 mg PO .COMPLEX 05/02/21 [History Last Taken Unknown] warfarin 5 mg PO QDAY 05/02/21 [History Last Taken Unknown] Allergy/AdvReac Type Severity Reaction Status Date / Time contact metal agent Allergy Rash Verified 04/27/21 17:40 Family History Brother Heart disease Father Cancer Grandfather Cancer Sister Diabetes Surgical History History of appendectomy History of left heart catheterization (05/01/21) History of tonsillectomy Social History (Updated 05/02/21 @ 19:[address] Peewee Chao MD) household members: family Smoking Status: Former smoker quit date: 12/01/19 pack-years: 55 alcohol intake: never substance use type: does not use what type of physical activity do you participate in: none ROS Constitutional Constitutional: Denies chills, fever(s) or weight gain ENT HEENT: Denies headache(s), nasal congestion or nasal discharge Cardiovascular Cardiovascular: Denies chest pain or palpitations Respiratory/Chest Respiratory/Chest: Denies cough, excessive phlegm production or shortness of breath with exertion Gastrointestinal Gastrointestinal: Denies abdominal pain, nausea or vomiting Genitourinary Genitourinary: Denies dysuria Musculoskeletal Musculoskeletal: Denies joint pain or joint swelling Integumentary Integumentary: Denies rash or wounds Neurologic Neurologic: Denies focal weakness, numbness or tingling Psychiatric Psychiatric: Reports auditory hallucinations; Denies anxiety, depression, homicidal ideation or suicidal ideation Vital Signs Vital Signs Vital Signs: 05/02/21 13:48 05/02/21 14:58 05/02/21 15:05 Temperature 97.1 F L Temperature Source Temporal Pulse Rate 80 Pulse Rhythm Irregular Pulse Strength Normal (2+) Respiratory Rate 20 H Respiratory Effort Normal Non-Labored Respiratory Depth Normal Respiratory Pattern Normal Blood Pressure 87/47 L Blood Pressure Mean 60 Blood Pressure Source Monitor Blood Pressure Position Semi-Fowlers Blood Pressure Location Left Arm Pulse Ox 93 93 Oxygen Delivery Method Nasal Cannula Nasal Cannula Oxygen Flow Rate (L/min) 3 3 3 Weight Weight: 103.561 kg Body Mass Index (BMI) 43.1 Physical Exam Const alert and oriented x3 General Appearance: cooperative HEENT normocephalic Eyes PERRL and EOMs intact bilaterally Neck supple, no JVD and no carotid bruits Resp normal respiratory effort, normal air movement and clear to auscultation bilaterally Cardio regular rate and regular rhythm GI normal to inspection, nondistended, normoactive bowel sounds, non-tender and non-distended Extremity normal capillary refill General Extremity: Negative for edema Skin no rashes or lesions noted General Skin Exam: no breakdown Psych affect normal Appearance: appropriate Lab / Micro Data Labs: Laboratory Results - last 24 hr 05/02/21 15:02 COVID-19 (JR) Not Detected Assessment & Plan Assessment/Plan (1) Debility: (2) NSTEMI (non-ST elevated myocardial infarction): (3) Acute respiratory failure with hypoxia: (4) COPD exacerbation: (5) UTI due to Klebsiella species: (6) Stroke: (7) Expressive aphasia: (8) Coronary artery disease: (9) Hypertension: (10) Insomnia: (11) Hyperlipidemia: (12) Allergic rhinitis: (13) Anxiety: PLAN: 70 year old female with below past medical history hospitalized for NSTEMI, complicated by Klebsiella urinary tract infection, COPD exacerbation, acute respiratory failure with hypoxia, admitted to TCU with debility, here for rehabilitation, strengthening, prior to discharge home with sister. * Debility - PT/OT. * Dysphagia - ST. * Pain - Tylenol 1000MG Q6H prn pain (1-10). * Bowel - Miralax 17GM daily, Senna/colace 1 tablet BID, Dulcolax 10MG daily PRN. * Adult immunization - Administer Prevnar 13, Pneumovax 23, COVID19 vaccine as appropriate. * DVT prophylaxis - Not necessary, already anticoagulated. * COPD - Budesonide 0.5MG Q12H, Albuterol 2.5MG nebulized [id number]. * Coronary Artery Disease - Coreg 6.25MG BID, Lisinopril 10MG daily, Imdur MN 30MG QHS, Plavix 75MG daily, Aspirin 81MG daily. * Hyperlipidemia - Atorvastatin 20MG QHS. 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 * Edema - Lasix 40MG BIDCM. * Allergic rhinitis - Singulair 10MG daily. * Insomnia - Trazodone 100MG QHS PRN. * Stroke - Warfarin 5MG 6 days/week, Warfarin 2MG 1 day/week, monitor INR, also on Plavix 75MG daily, Aspirin 81MG daily. * Right thigh pain - Doppler ultrasound right lower extremity to rule out DVT.
[2021-05-02 19:57] VITALS: PULSE 80; RESP 22; O2SAT 95
[2021-05-02] MEDS: Albuterol 2.5 MG/3 ML VIAL.NEB. INHALATION (19:57)
[2021-05-02] MEDS: Budesonide Respules 0.5 MG/2 ML AMPUL.NEB. INHALATION (19:57)
[2021-05-02] MEDS: Isosorbide Mononitrate 30 MG Tablet PO (20:51)
[2021-05-02] MEDS: Atorvastatin Calcium 20 MG Tablet PO (20:51)
[2021-05-02] MEDS: traZODone 100 MG Tablet PO (20:54)
[2021-05-03] MEDS: Acetaminophen 500 MG Tablet 1000 MG PO ×3 (04:01→16:57)
[2021-05-03 05:05] VITALS: BP 142/73; PULSE 92; RESP 22; TEMP 36.4; O2SAT 94
[2021-05-03] MEDS: Polyethylene Glycol 3350 17 GM PACKET PO (05:14)
[2021-05-03] MEDS: Lisinopril 10 MG Tablet PO (05:15)
[2021-05-03] MEDS: busPIRone 5 MG Tablet 7.5 MG PO ×2 (05:15→17:00)
[2021-05-03] MEDS: Aspirin E.C. 81 MG Tablet PO (05:15)
[2021-05-03] MEDS: Senna/Docusate Sodium 1 Tablet PO ×2 (05:15→17:00)
[2021-05-03] MEDS: Clopidogrel Bisulfate 75 MG Tablet PO (05:15)
[2021-05-03] MEDS: Montelukast 10 MG Tablet PO (05:16)
[2021-05-03 05:55] LABS: Absolute Lymphocyte Count 3.63 X10^3/uL (0.83-4.51); Absolute Neutrophil Count 10.8 X10^3/uL (2.0-7.7); Basophil# 0.03 X10^3/uL; Basophil% 0.2 % (0-1); Eosinophil# 0.04 X10^3/uL; Eosinophils% 0.3 % (0-5); Hematocrit 32.7 % (37-47); Hemoglobin 9.8 g/dL (12.0-15.0); Lymphocyte # 3.63 X10^3/ul (0.83-4.51); Lymphocyte % 22.8 % (19-41); Mean Corpuscular Hgb 27.1 pg (27.0-32.0); Mean Corpuscular Volume 90.6 fL (81-99); Monocyte# 1.22 X10^3/uL; Monocyte% 7.7 % (0-10); NRBC Flagged by Analyzer 0 % (0-5); Neutrophil # 10.82 X10^3/uL (2.7-7.7); Neutrophil % 67.8 % (47-70); Platelet Count 419 K/mm3 (150-450); RBC Distribution Width CV 13.9 % (11.6-14.6); RBC Distribution Width SD 45.3 fl (35.1-43.9); Red Blood Count 3.61 M/mm3 (4.2-5.4); White Blood Count 15.9 K/mm3 (4.4-11.0)
[2021-05-03 06:03] LABS: International Normalized Ratio 1.2; Prothrombin Time (Protime)PT. 14.2 SECONDS (11.7-14.9)
[2021-05-03 06:19] LABS: Anion Gap 5 (5-15); BUN 55 mg/dL (7-18); BUN/Creat Ratio 38.5 RATIO (10-20); Calcium,Total 9.2 mg/dL (8.5-10.1); Chloride 94 mmol/L (98-107); Creatinine, Serum 1.43 mg/dL (0.55-1.02); EST Glomerular Filtration Rate 38 mL/min (>60); Est Glom Filt Rate - Afr Amer 46 mL/min (>60); Estimated Creatinine Clearance 27.23 ml/min; Glucose 130 mg/dL (74-106); Potassium 4.3 mmol/L (3.5-5.1); Sodium Level 136 mmol/L (136-145)
[2021-05-03] MEDS: 0.9% Saline Lock 10 ML Syringe IV ×2 (07:19→20:24)
[2021-05-03 07:24] VITALS: PULSE 79; RESP 28; O2SAT 97
[2021-05-03] MEDS: Budesonide Respules 0.5 MG/2 ML AMPUL.NEB. INHALATION ×2 (07:24→19:00)
[2021-05-03] MEDS: Albuterol 2.5 MG/3 ML VIAL.NEB. INHALATION ×3 (07:24→19:00)
--- NOTE | 2021-05-03 10:17 | NURSING ---
Scheduled Duane and Noreen held d/t BP 87/40. Pt asymptomatic at this time, will continue to monitor and notify MD.
[2021-05-03] MEDS: Tuberculin,Purif.prot.deriv. 50 TU/ML Vial 0.1 ML ID (10:34)
[2021-05-03 13:30] VITALS: PULSE 73; RESP 32
[2021-05-03 13:53] VITALS: BP 87/35; PULSE 75; RESP 22; TEMP 35.7; O2SAT 96
--- NOTE | 2021-05-03 14:00 | NURSING ---
Pt BP remains low at 87/35. Some dizziness noted. Dr. Chao made aware and new order to hold BP meds this evening and 500mL bolus given at this time.
--- NOTE | 2021-05-03 15:11 | PHA.CONS_ITS ---
Progress Note - Pharmacy Subjective: TCU ADMISSION Objective: Allergies contact metal agent Allergy (Verified 04/27/21 17:40) Rash Current Medications Generic Name Dose Route Start Last Admin Trade Name Eugenie PRN Reason Stop Dose Admin Acetaminophen 1,000 mg 05/02/21 19:56 05/03/21 10:33 Acetaminophen 500 Mg Tablet PO 1,000 mg Q6H PRN PRN Administration Pain Score 1-10 Albuterol Sulfate 2.5 mg 05/02/21 15:45 05/03/21 13:30 Albuterol 2.5 Mg/3 Ml Vial.Neb. INHALATION 2.5 mg Q6HWA.RT HARJIT Administration Aspirin 81 mg 05/03/21 06:00 05/03/21 05:15 Aspirin E.C. 81 Mg Tablet PO 81 mg DAILY HARJIT Administration Atorvastatin Calcium 20 mg 05/02/21 22:00 05/02/21 20:51 Atorvastatin Calcium 20 Mg Tablet PO 20 mg QHS HARJIT Administration Bisacodyl 10 mg 05/02/21 19:56 Bisacodyl 5 Mg Tablet PO DAILY PRN Constipation Budesonide 0.5 mg 05/02/21 15:45 05/03/21 07:24 Budesonide Respules 0.5 Mg/2 Ml Ampul.Neb. INHALATION 0.5 mg Q12H.RT HARJIT Administration Buspirone HCl 7.5 mg 05/02/21 18:00 05/03/21 05:15 Buspirone 5 Mg Tablet PO 7.5 mg BID HARJIT Administration Carvedilol 6.25 mg 05/02/21 17:00 05/03/21 08:07 Carvedilol 6.25 Mg Tablet PO Not Given BIDCM HARJIT Clopidogrel Bisulfate 75 mg 05/03/21 06:00 05/03/21 05:15 Clopidogrel Bisulfate 75 Mg Tablet PO 75 mg DAILY HARJIT Administration Furosemide 40 mg 05/02/21 17:00 05/03/21 08:07 Furosemide 40 Mg Tablet PO Not Given BIDCM HARJIT Isosorbide Mononitrate 30 mg 05/02/21 22:00 05/02/21 20:51 Isosorbide Mononitrate 30 Mg Tablet PO 30 mg QHS HARJIT Administration Lisinopril 10 mg 05/03/21 06:00 05/03/21 05:15 Lisinopril 10 Mg Tablet PO 10 mg DAILY HARJIT Administration Montelukast Sodium 10 mg 06/03/21 06:00 05/03/21 05:16 Montelukast 10 Mg Tablet PO 10 mg DAILY HARJIT Administration Nutritional Formula (Lactose Free) 120 ml 05/02/21 22:00 05/03/21 11:56 Ensure Enlive 120 Ml Liquid PO 120 ml 4X/DAY HARJIT Administration Polyethylene Glycol 17 gm 05/03/21 06:00 05/03/21 05:14 Polyethylene Glycol 3350 17 Gm Packet PO 17 gm DAILY HARJIT Administration Senna/Docusate Sodium 1 tablet 05/03/21 06:00 05/03/21 05:15 Senna/Docusate Sodium 1 Tablet PO 1 tablet BID HARJIT Administration Sodium Chloride 10 - 40 ml 05/02/21 19:45 05/03/21 07:19 0.9% Saline Lock 10 Ml Syringe IV 10 ml UD PRN Administration SALINE FLUSH Trazodone HCl 100 mg 05/02/21 14:49 05/02/21 20:54 Trazodone 100 Mg Tablet PO 100 mg QHS PRN Administration sleep Tuberculin PPD 0.1 ml 05/10/21 10:00 Tuberculin,Purif.Prot.Deriv. 50 Tu/Ml Vial ID 05/10/21 10:01 X1 ONE Warfarin Sodium 2 mg 05/02/21 17:00 05/02/21 16:17 Jantoven 2 Mg Tablet PO 2 mg We@1700 HARJIT Administration Warfarin Sodium 5 mg 05/03/21 17:00 Warfarin 5 Mg Tablet PO [id number] [facility] Problem List (Last Reviewed 05/02/21 @ 19:[address] Peewee Chao MD) Anxiety (Acute) Allergic rhinitis (Acute) Hyperlipidemia (Acute) Insomnia (Acute) Hypertension (Chronic) Coronary artery disease (Acute) Expressive aphasia (Acute) Stroke (Acute) UTI due to Klebsiella species (Acute) COPD exacerbation (Chronic) Acute respiratory failure with hypoxia (Acute) NSTEMI (non-ST elevated myocardial infarction) (Acute) Debility (Acute) Vital Signs Temp Pulse Resp BP Pulse Ox 96.3 F L 75 22 H 87/35 L 96 05/03/21 13:53 05/03/21 13:53 05/03/21 13:53 05/03/21 13:53 05/03/21 13:53 Oxygen Flow Rate (L/min) 3 Oxygen Delivery Method Nasal Cannula Weight: 103.561 kg Body Mass Index (BMI) 43.1 Sodium 136 mmol/L (136-145) 05/03/21 05:05 Potassium 4.3 mmol/L (3.5-5.1) 05/03/21 05:05 Chloride 94 mmol/L (98-107) L 05/03/21 05:05 Carbon Dioxide 37.0 mmol/L (21.0-32.0) H 05/03/21 05:05 Anion Gap 5 (5-15) 05/03/21 05:05 BUN 55 mg/dL (7-18) H 05/03/21 05:05 Creatinine 1.43 mg/dL (0.55-1.02) H 05/03/21 05:05 Est GFR (MDRD) Af Amer 46 mL/min (>60) L 05/03/21 05:05 Est GFR (MDRD) Non-Af 38 mL/min (>60) L 05/03/21 05:05 BUN/Creatinine Ratio 38.5 RATIO (10-20) H 05/03/21 05:05 Glucose 130 mg/dL (74-106) H 05/03/21 05:05 Assessment/Plan: 1. Pain: Tylenol 1000mg PO Q6h PRN Pain 1-10. Please continue to monitor for increased/decreased S/S pain, PRN medication usage. 2. CAD/Edema: Aspirin 81mg PO Daily, Lipitor 20mg PO QHS, Coreg 6.25mg PO BID, Plavix 75mg PO Daily, Lasix 40mg PO BID, Imdur 30mg PO QHS, Lisinopril 10mg PO Daily. Please continue to monitor BP, pulse, SCr, electrolytes, S/S bleeding/bruising, lipid panel annually or sooner if clinically indicated. 3. History of Stroke: Warfarin 2mg PO Friday, 5mg PO all other days. Please continue to monitor INR (1.2 on 05/03), S/S bleeding/bruising, S/S recurrent stroke. Note: also on Aspirin, Plavix (see above) 4. COPD: Albuterol nebs Q6hWA, Pulmicort nebs Q12hr. Please continue to monitor for S/S COPD exacerbation, medication effectiveness. 5. Allergic Rhinitis: Singulair 10mg PO Daily. Please continue to monitor for medication effectiveness. 6. Insomnia: Trazodone 100mg PO QHS PRN. Please continue to monitor for PRN usage, medication effectiveness. Psychotropic Medications: 7. Anxiety: Buspar 7.5mg PO BID. Please see note in H/P regarding GDR, thank you. Unnecessary Medications: None Bowel Regimen: Miralax 17g PO Daily, Senna/Docusate 1 tab PO BID, Dulcolax 10mg PO Daily PRN. Please continue to monitor for increased/decreased constipation and/or diarrhea. Date of Note:: 05/03/21
--- NOTE | 2021-05-03 16:10 | CHAPLAIN ---
Type of Pastoral Visit _x__ Initial Visit ___ Follow-up Visit ___ On-call Visit ___ General Patient Visit ___ Spiritual Assessment ___ Family Conference ___ Bereavement ___ Rapid Response ___ Code Blue ___ Other (describe below) Pastoral Care Referral From _x__ Patient ___ Family ___ Nurse ___ Physician ___ Coal Pipeline Operator ___ Engraver Ornamental Design ___ Other (describe below) Sacrament/Intervention _x__ Active listening ___ Anointing ___ Rastafarian ___ Bereavement ___ Communion ___ Miley exploration ___ ___ Life review _x__ Prayer ___ Reconciliation ___ Sacrament of Sick _x__ Supportive presence ___ Wedding ___ Other (describe below) Pastoral Comments patient welcomes visit but talking is hesitiant due to her recent therapy; visit is brief; pt is welcoming of prayer
[2021-05-03 17:03] VITALS: BP 113/52; PULSE 83
--- NOTE | 2021-05-03 18:36 | RAD_ITS ---
INDICATION: Pain EXAMINATION/TECHNIQUE: X-RAY - RIGHT XR Hip Unilateral with Pelvis when performed; 2-3 Views COMPARISON: None. FINDINGS: No acute fracture or malalignment. No blastic or lytic lesions. Mild asymmetric joint space narrowing of the bilateral hips. Severe degenerative changes of the lower lumbar spine. The soft tissues are unremarkable. Vascular calcifications. RAD/HIP, UNI W/ Pelvis 2-3 Views IMPRESSION: No acute radiographic abnormalities. 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 Severe degenerative disc disease and spondylosis of the lower lumbar spine. Electronically Signed: Zeb Da Silva MD at 23:52 EDT Tel , Service support ,
[2021-05-03 19:00] VITALS: PULSE 77; RESP 18
[2021-05-03] MEDS: traMADol 50 MG Tablet PO (20:10)
[2021-05-03] MEDS: Atorvastatin Calcium 20 MG Tablet PO (20:16)
[2021-05-03] MEDS: Isosorbide Mononitrate 30 MG Tablet PO (20:16)
[2021-05-03] MEDS: traZODone 100 MG Tablet PO (21:14)
[2021-05-04 05:40] VITALS: BP 92/54; PULSE 84; RESP 16; TEMP 36.8; O2SAT 99
[2021-05-04] MEDS: Polyethylene Glycol 3350 17 GM PACKET PO (05:42)
[2021-05-04] MEDS: busPIRone 5 MG Tablet 7.5 MG PO ×2 (05:44→18:32)
[2021-05-04] MEDS: Senna/Docusate Sodium 1 Tablet PO ×2 (05:45→18:32)
[2021-05-04] MEDS: Clopidogrel Bisulfate 75 MG Tablet PO (05:45)
[2021-05-04] MEDS: Montelukast 10 MG Tablet PO (05:45)
[2021-05-04] MEDS: Aspirin E.C. 81 MG Tablet PO (05:45)
[2021-05-04 07:31] VITALS: PULSE 78; RESP 16; O2SAT 96
[2021-05-04] MEDS: Budesonide Respules 0.5 MG/2 ML AMPUL.NEB. INHALATION ×2 (07:31→18:58)
[2021-05-04] MEDS: Albuterol 2.5 MG/3 ML VIAL.NEB. INHALATION ×3 (07:31→18:58)
[2021-05-04] MEDS: traMADol 50 MG Tablet PO ×2 (07:55→18:37)
[2021-05-04 12:45] VITALS: PULSE 82; RESP 18; O2SAT 96
[2021-05-04 15:52] VITALS: BP 86/40; PULSE 98; RESP 18; TEMP 35.9; O2SAT 95
[2021-05-04 18:58] VITALS: PULSE 76; RESP 18
[2021-05-04] MEDS: Isosorbide Mononitrate 30 MG Tablet PO (22:52)
[2021-05-04] MEDS: Atorvastatin Calcium 20 MG Tablet PO (22:52)
[2021-05-04] MEDS: Acetaminophen 500 MG Tablet 1000 MG PO (23:14)
[2021-05-04] MEDS: 0.9% Saline Lock 10 ML Syringe IV (23:15)
[2021-05-04] MEDS: traZODone 100 MG Tablet PO (23:44)
[2021-05-05 05:50] VITALS: BP 115/54; PULSE 63; RESP 22; TEMP 35.8; O2SAT 97
[2021-05-05] MEDS: Montelukast 10 MG Tablet PO (06:02)
[2021-05-05] MEDS: Clopidogrel Bisulfate 75 MG Tablet PO (06:02)
[2021-05-05] MEDS: Lisinopril 10 MG Tablet PO (06:02)
[2021-05-05] MEDS: Aspirin E.C. 81 MG Tablet PO (06:03)
[2021-05-05] MEDS: Senna/Docusate Sodium 1 Tablet PO ×2 (06:03→16:52)
[2021-05-05] MEDS: busPIRone 5 MG Tablet 7.5 MG PO ×2 (06:03→16:50)
[2021-05-05] MEDS: Polyethylene Glycol 3350 17 GM PACKET PO (06:05)
[2021-05-05] MEDS: traMADol 50 MG Tablet PO (06:13)
[2021-05-05 07:54] VITALS: O2SAT 95
[2021-05-05] MEDS: Furosemide 40 MG Tablet PO ×2 (08:09→16:49)
--- NOTE | 2021-05-05 13:20 | NURSING ---
Pt has moist cough, wheezes throughout lungs, and crackles auscultated in lower lobes, WBC count from 05/03 15.9 and trending up pt here for acute cystitis and elevated troponin, Dr Lam updated and N.O. U/A C&S and cefadroxil x 14 days
[2021-05-05 13:30] LABS: Mucous, Urine 0 SEEN /hpf (<or=2+); Red Blood Cells-Urine 0 SEEN /hpf (0-5)
[2021-05-05 13:51] LABS: Color, Urine Yellow (Yellow); Glucose, Dipstick Normal (Normal); Ketone-Dipstick Negative (Negative); Leukocyte Esterase-Dipstick 25 /ul (Negative); Nitrite-Dipstick Negative (Negative); Occult Blood-Urine 10 /ul (Negative); Protein-Dipstick Negative (Negative); Urine Bilirubin Dipstick Negative (Negative); Urine Clarity Sl. Cloudy (Clear); Urine Urobilinogen Normal (Normal)
[2021-05-05] MEDS: Budesonide Respules 0.5 MG/2 ML AMPUL.NEB. INHALATION ×2 (13:54→18:52)
[2021-05-05 13:55] VITALS: PULSE 80; RESP 20
[2021-05-05] MEDS: Albuterol 2.5 MG/3 ML VIAL.NEB. INHALATION ×2 (13:55→18:52)
[2021-05-05 13:58] LABS: Bacteria 2+ /hpf (None Seen); Squamous Epithelial Cells - UA 0-5 SEEN /hpf (5-10); White Blood Cells 0-5 SEEN /hpf (0-5)
[2021-05-05 14:10] VITALS: BP 110/92; PULSE 87; RESP 20; TEMP 35.7; O2SAT 100
[2021-05-05] MEDS: Carvedilol 6.25 MG Tablet PO (16:49)
[2021-05-05] MEDS: Cefadroxil 500 MG CAPSULE 1000 MG PO (16:50)
[2021-05-05] MEDS: 0.9% Saline Lock 10 ML Syringe IV (16:52)
[2021-05-05 18:52] VITALS: PULSE 87; RESP 26
[2021-05-05 19:45] VITALS: BP 91/41; PULSE 67
[2021-05-05] MEDS: Isosorbide Mononitrate 30 MG Tablet PO (20:10)
[2021-05-05] MEDS: Atorvastatin Calcium 20 MG Tablet PO (20:10)
[2021-05-06] MEDS: traMADol 50 MG Tablet PO ×3 (03:06→22:25)
[2021-05-06 05:00] VITALS: BP 122/99; PULSE 84; RESP 22; TEMP 36.7; O2SAT 95
[2021-05-06] MEDS: Polyethylene Glycol 3350 17 GM PACKET PO (05:11)
[2021-05-06] MEDS: Cefadroxil 500 MG CAPSULE 1000 MG PO ×2 (05:11→17:00)
[2021-05-06] MEDS: busPIRone 5 MG Tablet 7.5 MG PO ×2 (05:11→17:00)
[2021-05-06] MEDS: Aspirin E.C. 81 MG Tablet PO (05:11)
[2021-05-06] MEDS: Clopidogrel Bisulfate 75 MG Tablet PO (05:11)
[2021-05-06] MEDS: Senna/Docusate Sodium 1 Tablet PO ×2 (05:12→17:01)
[2021-05-06] MEDS: Montelukast 10 MG Tablet PO (05:12)
[2021-05-06] MEDS: Lisinopril 10 MG Tablet PO (05:12)
[2021-05-06] MEDS: 0.9% Saline Lock 10 ML Syringe IV ×2 (05:16→12:54)
[2021-05-06 07:30] VITALS: PULSE 89; RESP 16; O2SAT 98
[2021-05-06] MEDS: Budesonide Respules 0.5 MG/2 ML AMPUL.NEB. INHALATION ×2 (07:30→18:39)
[2021-05-06] MEDS: Albuterol 2.5 MG/3 ML VIAL.NEB. INHALATION ×3 (07:30→18:39)
[2021-05-06] MEDS: Carvedilol 6.25 MG Tablet PO ×2 (08:32→16:58)
[2021-05-06] MEDS: Furosemide 40 MG Tablet PO ×2 (08:32→16:58)
--- NOTE | 2021-05-06 12:58 | NURSING ---
This nurse flushed saline lock and noted fluid leaking around the dressing, saline lock pulled and site dressed with gauze and tape, catheter tip intact, pt denies pain/discomfort.
[2021-05-06 13:36] VITALS: PULSE 80; RESP 16
[2021-05-06 14:14] VITALS: BP 115/72; PULSE 80; RESP 22; TEMP 36.2; O2SAT 97
[2021-05-06 18:39] VITALS: PULSE 75; RESP 24
[2021-05-06] MEDS: Bisacodyl 5 MG Tablet 10 MG PO (21:06)
[2021-05-06] MEDS: Atorvastatin Calcium 20 MG Tablet PO (21:06)
[2021-05-06] MEDS: Isosorbide Mononitrate 30 MG Tablet PO (21:06)
--- NOTE | 2021-05-07 01:37 | NURSING ---
Patient sleeping in chair and leaning forward onto bedside table. Encouraged patient to let this Nurse assist her into bed. After some 1:1 time, patient agreed to get into bed with assist x1. Patient in bed in position of comfort. Socks removed per patient request. BLLE elevated d/t edema.
--- NOTE | 2021-05-07 04:56 | NURSING ---
Entered patient room. Found patient in upright position in bed. Labored breathing noted. Vitals obtained. BP: 107/57; HR: 108; R: 22; O2: 84% with 3 LPM via nasal cannula. Increased Oxygen to 4 LPM, O2 level only increased to 87%. Unable to hear air movement during auscultation of lungs. Patient dysphasic, but can answer simple questions. When asked patient if she was having chest pain, patient said yes and pointed to left chest area. Sent BI CONSULTANT to get RN. Forming Machine Operator Socorro on unit. Advised to send patient to ER for evaluation. Report called to Tayo in ED. Patient transferred by this Nurse and BI CONSULTANT to ER room #2. Slid patient by sheet to ER cot. Bedside report given to Tayo as well.
[2021-05-07 05:00] VITALS: BP 107/57; PULSE 108; RESP 22; O2SAT 84
--- NOTE | 2021-05-07 05:14 | NURSING ---
Left message for SisterCarmen regarding patient being sent to the ER.
[2021-05-07 06:01] LABS: International Normalized Ratio 1.6; Prothrombin Time (Protime)PT. 18.1 SECONDS (11.7-14.9)
--- NOTE | 2021-05-07 08:56 | NURSING ---
[facility] SENT TO PCU PER THEIR REQUEST FOR SPEECH EVAL. PT ADMITED TO PCU
--- NOTE | 2021-05-07 09:52 | PCM.DC.SUM ---
Providers Date of Admission: 05/02/21 Primary Care Physician: Dr. Romario Aguilar, DO Reason For Visit: ACUTE CYSTITIS & ABNORMAL TRIPONIN LEVELS Diagnosis Discharge Diagnosis (1) Acute respiratory failure with hypoxia: Status: Acute Code(s): J96.01 - Acute respiratory failure with hypoxia (2) Acute kidney injury: Status: Acute Code(s): N17.9 - Acute kidney failure, unspecified (3) Hyperkalemia: Status: Acute Code(s): E87.5 - Hyperkalemia (4) Debility: Status: Acute Code(s): R53.81 - Other malaise (5) NSTEMI (non-ST elevated myocardial infarction): Status: Acute Code(s): I21.4 - Non-ST elevation (NSTEMI) myocardial infarction (6) COPD exacerbation: Status: Chronic Code(s): J44.1 - Chronic obstructive pulmonary disease with (acute) exacerbation (7) UTI due to Klebsiella species: Status: Acute Code(s): N39.0 - Urinary tract infection, site not specified; B96.89 - Other specified bacterial agents as the cause of diseases classified elsewhere (8) Stroke: Status: Acute Code(s): I63.9 - Cerebral infarction, unspecified (9) Expressive aphasia: Status: Acute Code(s): R47.01 - Aphasia (10) Coronary artery disease: Status: Acute Code(s): I25.10 - Atherosclerotic heart disease of [place] coronary artery without angina pectoris (11) Hypertension: Status: Chronic Code(s): I10 - Essential (primary) hypertension (12) Insomnia: Status: Acute Code(s): G47.00 - Insomnia, unspecified (13) Hyperlipidemia: Status: Acute Code(s): E78.5 - Hyperlipidemia, unspecified (14) Anxiety: Status: Acute Code(s): F41.9 - Anxiety disorder, unspecified (15) Allergic rhinitis: Status: Acute Code(s): J30.9 - Allergic rhinitis, unspecified Medications at Discharge Home Medications aspirin 81 mg tablet,delayed release 81 mg PO QDAY 03/25/18 home oxygen #1 ea 08/24/20 nebulizer #1 ea 11/01/20 trazodone 100 mg tablet 100 mg PO QHS PRN #30 tablet 02/21/21 buspirone 7.5 mg PO BID 05/02/21 carvedilol [Coreg] 6.25 mg PO BIDCM 05/02/21 clopidogrel 75 mg PO DAILY 05/02/21 furosemide [Lasix] 40 mg PO BIDCM 05/02/21 isosorbide mononitrate 30 mg PO QHS 05/02/21 lisinopril 10 mg PO QDAY 05/02/21 montelukast 10 mg PO DAILY 05/02/21 warfarin 2 mg PO WE 05/02/21 warfarin 5 mg PO SUMOTUTHFRSA 05/02/21 albuterol sulfate [Ventolin] 2.5 mg INHALATION Q6H 05/07/21 atorvastatin [Lipitor] 20 mg PO QHS 05/07/21 budesonide [Pulmicort] 0.5 mg INHALATION BID 05/07/21 cefadroxil 1,000 mg PO BID 05/07/21 food supplemt, lactose-reduced [Ensure] 120 ml PO 4X/DAY 05/07/21 polyethylene glycol 3350 [Miralax] 17 g PO DAILY 05/07/21 sennosides-docusate sodium [Senokot-S] 1 tab-cap PO BID 05/07/21 Hospital Course Operations None Procedures None Summary of Care Provided Minutes Spent on Discharge: 30 Hospital Course: DEDRICK BUSTILLO is a 70-year old female with a past medical history of hypertension, coronary artery disease, chronic bronchitis/COPD, smoking dependence in remission, history of CVA with persistent aphasia, insomnia, lymphedema and obesity who was admitted to [facility] on 04/27/2021 for NSTEMI and acute respiratory failure. She underwent cardiac catheterization on 05/01/2021 that showed severe triple-vessel disease. Cardiology recommended optimizing medical therapy. She was admitted to TCU on 05/02/2021 for debility/generalized weakness prior to returning home. At admission to TCU the potassium was 4 and the BUN was 58 with a creatinine of 1.76 (consistent with acute kidney injury) On 04/29/2021 the creatinine was 1.01. On 05/03/2021 the creat had decreased to 1.43 with a stable potassium of 4.3. The white blood cell count was elevated at 14.8 which was down from 13.8 on 04/26/2021. On 05/07/21 she c/o increasing SOB early in the AM and the pulse ox was 84%. She was sent to the ED to be evaluated. She was diagnosed with DANIELLE in the ED and Hyperkalemia. The creat was 3.72 with a BUN of 107. Potassium was 6.1. Oral intake was poor during her stay on TCU and she had been on Lasix 40 mg BID. She also had dye with the cardiac cath on 05/01/21. She was admitted to PCU for management of ARF and Hyperkalemia. Physical Exam Narrative I did not examine this pt prior to DC because she had been sent to the ED and then admitted to PCU. Please see the ED physician's note and the hospitalist' admitting H&P for the EXAM. ABG / Lab / Microbiology Data Result Diagrams: 05/03/21 05:05 05/03/21 05:05 Laboratory: Laboratory Results - last 24 hr 05/07/21 05:25 PT 18.1 H INR 1.6 Microbiology: Microbiology 05/05/21 13:05 Urine Culture - Preliminary Urine Catheter - Catheter Culture exhibits no growth. Microbiology 05/05/21 13:05 Urine Catheter - Catheter Urine Culture - Preliminary Culture exhibits no growth. D/C Instructions Please Follow Up With: Romario Aguilar, DO Meaningful Use Info Meaningful Use Diagnoses (Choose all that apply): None applicable Discharge Plan Admission Admit Date/Time: 05/02/21 13:30 Primary Reason for Your Visit: Debility due to NSTEMI and acute respiratory failure due to CHF. Attending Provider: Peewee Chao Chi Primary Care Provider: Romario Aguilar Discharge Orders/Prescriptions Prescriptions: No Action aspirin 81 mg tablet,delayed release (DR/EC) 81 mg PO QDAY RF: 0 (DME) home oxygen Qty: 1 RF: 0 (DME) nebulizer See Rx Instructions .Route .MEDSUPPLY Qty: 1 RF: 0 trazodone 100 mg tablet 100 mg PO QHS PRN (Reason: sleep) Qty: 30 RF: 2 furosemide [Lasix] 40 mg tablet 40 mg PO BIDCM RF: 0 isosorbide mononitrate 30 mg tablet extended release 24 hr 30 mg PO QHS RF: 0 clopidogrel 75 mg tablet 75 mg PO DAILY RF: 0 carvedilol [Coreg] 3.125 mg tablet 6.25 mg PO BIDCM RF: 0 lisinopril 10 mg tablet 10 mg PO QDAY RF: 0 warfarin 2 mg tablet 2 mg PO WE RF: 0 warfarin 5 mg tablet 5 mg PO SUMOTUTHFRSA RF: 0 buspirone 7.5 mg tablet 7.5 mg PO BID RF: 0 montelukast 10 mg tablet 10 mg PO DAILY RF: 0 cefadroxil 500 mg Capsule 1,000 mg PO BID RF: 0 Ensure Liquid 120 ml PO 4X/DAY RF: 0 atorvastatin [Lipitor] 20 mg Tablet 20 mg PO QHS RF: 0 albuterol sulfate [Ventolin] 2.5 mg /3 mL (0.083 %) Solution For Nebulization 2.5 mg inhalation Q6H RF: 0 polyethylene glycol 3350 [Miralax] 17 gram Powder In Packet 17 g PO DAILY RF: 0 sennosides-docusate sodium [Senokot-S] 8.6-50 mg Tablet 1 tab-cap PO BID RF: 0 budesonide [Pulmicort] 0.5 mg/2 mL Suspension For Nebulization 0.5 mg INHALATION BID RF: 0 Referrals / Follow Up: Romario Aguilar DO [Primary Care Provider] - Disposition Disposition (needs filled in before D/C Order can be placed): [facility]
--- NOTE | 2021-05-14 12:37 | MDS.RN ---
Informaiton for the mds was obtained from review of the clinical record, interview of resident, staff, and direct observation of resident's care.
== END 2021-05-07 04:42 | disposition short-term general hospital (02) | DRG 281 ==
PROVIDERS: Internal Medicine; Admitting Provider Family Medicine Geriatric Medicine; PCP Family Medicine; Visit Provider Family Medicine Geriatric Medicine
DX: I21.4 Non-ST elevation (NSTEMI) myocardial infarction (principal); N39.0 Urinary tract infection, site not specified; J44.1 Chronic obstructive pulmonary disease with (acute) exacerbation; Z68.41 Body mass index [BMI] 40.0-44.9, adult; I25.10 Atherosclerotic heart disease of native coronary artery without angina pectoris; B96.1 Klebsiella pneumoniae [K. pneumoniae] as the cause of diseases classified elsewhere; E78.5 Hyperlipidemia, unspecified; F41.9 Anxiety disorder, unspecified; E66.9 Obesity, unspecified; I69.320 Aphasia following cerebral infarction; I69.322 Dysarthria following cerebral infarction; I10 Essential (primary) hypertension; I25.2 Old myocardial infarction; Z99.81 Dependence on supplemental oxygen; Z87.891 Personal history of nicotine dependence; Z79.899 Other long term (current) drug therapy; Z79.82 Long term (current) use of aspirin; Z79.02 Long term (current) use of antithrombotics/antiplatelets; Z79.51 Long term (current) use of inhaled steroids; Z79.01 Long term (current) use of anticoagulants
CPT/HCPCS: 36415; 73502; 80048; 81001; 85025; 85610; 87086; 87635; 92507; 92523; 92610; 93971; 94640; 97110; 97116; 97162; 97166; 97530; 97535; 97802; 99251; J7040; U0005; A4216; G0463; U0003

== ENCOUNTER → 2021-05-03 08:35 | Outpatient (CLI) | payer MEDICARE, MEDICAID, SELFPAY ==
[2021-05-02 13:48] VITALS: BMI 43.1
--- NOTE | 2021-05-03 08:38 | VDLE_ITS ---
Reason For Study: Swelling right leg RIGHT GSV is normal. CFV is compressible, spontaneous, phasic, competent and demonstrates normal augmentation. FV is compressible, spontaneous, phasic, competent and demonstrates normal augmentation. FV mid-distal appear patent, visualized with color only. Pt unable to tolerate compression. POP V is compressible, spontaneous, phasic, competent and demonstrates normal augmentation. T/P Trunk is compressible. PTV is compressible. RT PerV is compressible. Procedure This is a venous duplex using B-mode, color flow and spectral Doppler. Exam performed portable in patient room. A preliminary report was called and/or faxed to TCU. VL/Venous Duplex US, Unilateral Interpretation Summary There is no evidence of right lower extremity deep vein thrombosis. Right great saphenous vein appears patent and compressible segmentally. The right mid to distal femoral ve in could only be visualized with color Doppler as the patient was unable to tolerate compression . Ordering Physician: Peewee Chao Referring Physician: Jason Aguilar M.D. Performed By: Bety Mcarthur RVT
== END ==
PROVIDERS: PCP Family Medicine; Referring Provider Family Medicine Geriatric Medicine; Visit Provider Family Medicine Geriatric Medicine
DX: M79.89 Other specified soft tissue disorders (principal); R22.31 Localized swelling, mass and lump, right upper limb
CPT/HCPCS: 93971

== ENCOUNTER 2021-05-07 04:50 | Inpatient (IN) | payer MEDICARE, MEDICAID, SELFPAY ==
[2021-05-07] VITALS (20 sets, daily range): BP systolic 81–135; BP diastolic 40–88; PULSE 80–116; RESP 12–38; TEMP 35.7–37.2; O2SAT 93–100; BMI 44.5; BMI 42.6
[2021-05-07] MEDS: Ipratropium/Albuterol Sulfate 3 ML AMPUL.NEB INHALATION ×4 (05:15→23:27)
--- NOTE | 2021-05-07 05:15 | EKG12_ITS ---
Test Reason : CP Blood Pressure : / mmHG Vent. Rate : 100 BPM Atrial Rate : 100 BPM P-R Int : 162 ms QRS Dur : 108 ms QT Int : 350 ms P-R-T Axes : 073 057 118 degrees QTc Int : 451 ms Normal sinus rhythm Incomplete left bundle branch block ST & T wave abnormality, consider inferolateral ischemia Abnormal ECG Confirmed by MARCIO GILES, AR ([id number]), editorial director VICKI ZAMBRANO ([id number]) on 05/11/2021 8:10:45 AM Referred By: POLO Confirmed By:AR BUCKLEY MD
--- NOTE | 2021-05-07 05:15 | RAD_ITS ---
HISTORY: Dyspnea EXAMINATION/TECHNIQUE: XR Chest 1 View COMPARISON: AP chest from 04/26/21 FINDINGS: LINES/DEVICES: social worker aide leads. LUNGS: No pulmonary edema. No focal airspace consolidation. No sizable pleural effusion. No pneumothorax detected. MEDIASTINUM AND CARDIOVASCULAR STRUCTURES: Heart normal size. Atherosclerotic calcifications along the aorta. BONES AND SOFT TISSUES: Skeletal degenerative changes. RAD/Chest 1 View (Portable) IMPRESSION: No radiographic evidence of acute cardiopulmonary disease. at 0634 Reported and signed by: Bennie Apodaca MD Electronically Signed: Bennie Apodaca MD at 6:32 EDT Tel , Service support ,
--- NOTE | 2021-05-07 05:17 | EDS_ITS ---
HPI History of Present Illness Chief Complaint: Chest Pain Limited: other (Aphasia) Onset/Context/Timing Onset: Today (Approximately 20 to 30 minutes prior to arrival) Activity at onset: sudden Timing: Continuous Associated Symptoms: Positive for Dyspnea; Negative for Nausea and Vomiting Narrative Narrative: Patient presents with chest pain and shortness of breath that began approximately 20 to 30 minutes prior to arrival. Patient was on the TCU unit when symptoms began. Patient was then transferred to the emergency department. Patient has a history of aphasia from prior stroke. Patient is a poor historian. Patient was recently admitted to the hospital for non-STEMI with a troponin of 12. PE Risk Factors: Positive for Recent Immobilization; Negative for Prior DVT or PE and Cancer [facility] Medical History Atherosclerotic heart disease of [place] coronary artery without angina pectoris Chronic bronchitis COPD (chronic obstructive pulmonary disease) Dysphasia Essential hypertension Former smoker History of CVA (cerebrovascular accident) History of successful cardiopulmonary resuscitation Insomnia Lymphedema Obesity Home Medications aspirin 81 mg tablet,delayed release 81 mg PO QDAY 03/25/18 [History Last Taken 08/22/20] home oxygen #1 ea 08/24/20 [Rx Last Taken Unknown] nebulizer #1 ea 11/01/20 [Rx Last Taken Unknown] albuterol sulfate 1.25 mg/3 mL solution for nebulization 1.25 mg INHALATION Q6H #180 ml 11/16/20 [Rx Last Taken Unknown] trazodone 100 mg tablet 100 mg PO QHS PRN #30 tablet 02/21/21 [Rx Last Taken Unknown] Spiriva Respimat 2 puff INHALATION QDAY 05/02/21 [History Last Taken Unknown] albuterol sulfate 1.25 mg INHALATION Q6H 05/02/21 [History Last Taken Unknown] budesonide-formoterol [Symbicort] 2 puff INHALATION BID 05/02/21 [History Last Taken Unknown] buspirone 7.5 mg PO BID 05/02/21 [History Last Taken Unknown] carvedilol [Coreg] 6.25 mg PO BID 05/02/21 [History Last Taken Unknown] clopidogrel 75 mg PO DAILY 05/02/21 [History Last Taken Unknown] furosemide [Lasix] 40 mg PO BIDCM 05/02/21 [History Last Taken Unknown] isosorbide mononitrate 30 mg PO QHS 05/02/21 [History Last Taken Unknown] lisinopril 10 mg PO QDAY 05/02/21 [History Last Taken Unknown] montelukast 10 mg PO DAILY 05/02/21 [History Last Taken Unknown] simvastatin 40 mg PO QAM 05/02/21 [History Last Taken Unknown] warfarin 2 mg PO .COMPLEX 05/02/21 [History Last Taken Unknown] warfarin 5 mg PO QDAY 05/02/21 [History Last Taken Unknown] Allergy/AdvReac Type Severity Reaction Status Date / Time contact metal agent Allergy Rash Verified 05/07/21 04:54 Family History Brother Heart disease Father Cancer Grandfather Cancer Sister Diabetes Surgical History History of appendectomy History of left heart catheterization (05/01/21) History of tonsillectomy Social History household members: family Smoking Status: Former smoker quit date: 12/01/19 pack-years: 55 alcohol intake: never substance use type: does not use what type of physical activity do you participate in: none ROS ROS ED Constitutional Constitutional ED: Denies chills or fever(s) Eyes Eyes: Denies blurry vision or change in vision ENT ENT ED: Denies rhinorrhea or sore throat Cardiovascular Cardiovascular: Reports as per HPI and chest pain Respiratory/Chest Respiratory/Chest: Reports dyspnea; Denies cough Gastrointestinal Gastrointestinal: Reports nausea; Denies abdominal pain or vomiting Genitourinary Genitourinary ED: Denies dysuria or hematuria Musculoskeletal Musculoskeletal: Denies back pain or neck pain Integumentary Denies abscess or rash Neurologic Neurologic: Denies headache(s) or weakness Allergic/Immunologic Allergic/Immunologic ED: Denies mouth swelling or urticaria EXAM Physical Exam Const Vital Signs: 05/07/21 04:50 05/07/21 04:54 05/07/21 05:00 Temperature 96.2 F L Temperature Source Temporal Pulse Rate 101 H Respiratory Rate 28 H Respiratory Effort Short of Breath Respiratory Pattern Blood Pressure 81/56 L 81/63 L Blood Pressure Mean 64 69 Pulse Ox 93 Oxygen Delivery Method Nasal Cannula Oxygen Flow Rate (L/min) 4 Fraction of Inspired Oxygen (FIO2) 05/07/21 05:15 05/07/21 05:20 05/07/21 05:46 Temperature Temperature Source Pulse Rate 99 116 H 96 Respiratory Rate 30 H 28 H 20 H Respiratory Effort Respiratory Pattern Tachypnea Blood Pressure 91/77 104/80 Blood Pressure Mean 81 88 Pulse Ox 95 100 94 Oxygen Delivery Method Bi-pap Bi-pap Oxygen Flow Rate (L/min) Fraction of Inspired Oxygen (FIO2) 30 05/07/21 06:06 05/07/21 07:16 Temperature 97.5 F L Temperature Source Temporal Pulse Rate 96 111 H Respiratory Rate 19 H 26 H Respiratory Effort Respiratory Pattern Blood Pressure 83/73 L 107/79 Blood Pressure Mean 76 88 Pulse Ox 94 95 Oxygen Delivery Method Bi-pap Bi-pap Oxygen Flow Rate (L/min) Fraction of Inspired Oxygen (FIO2) Positive well nourished, well developed and obese General Appearance ED: well developed Nutritional Appearance: obese HEENT normocephalic and atraumatic Neck supple and no JVD Chest Wall palpation of chest normal Resp normal respiratory effort Effort and Inspection: Negative for respiratory distress Auscultation: rales bilateral base and wheezes expiratory wheezes and throughout Cardio regular rate, regular rhythm and no murmurs GI normal to inspection, nondistended, normoactive bowel sounds, soft to palpation, non-tender and non-distended Extremity General Extremety ED: Yes edema; Negative for tenderness General Extremity: edema Neuro CN's II-XII intact bilaterally Sensorium / Orientation: awake and alert Psych mental status grossly normal Heart Score History: Slightly/Non-Suspicious ECG: Nonspecific Repolarization Age: >/= 65 years Risk Factors: >/= 3 Risk Factors or History of CAD Troponin: >1 - <3 Normal Limit Score: 6 MDM MDM MDM Narrative Medical decision making narrative: Patient was started on BiPAP initially. Patient was given a DuoNeb aerosol. Patient was given a 500 cc bolus of normal saline initially. CBC shows a mild leukocytosis of 13.8 and a mild anemia with a hemoglobin of 9.8 hematocrit 32.8. Comprehensive metabolic profile shows no evaded BUN of 107, creatinine of 3.72, and potassium of 6.1. Troponin was slightly elevated at 0.120. BNP was normal. Urinalysis was within normal limits. Portable 1 view chest x-ray was obtained. On my interpretation, lung soliz are clear. There is normal cardiac silhouette. Bony thorax is normal. There is no acute process noted. Radiologist also interpreted the x-ray and agrees. EKG was obtained. On my interpretation, it showed a normal sinus rhythm with a rate of 100. MO interval, QRS interval, and QTc intervals were all normal. [place] was normal. There are nonspecific ST-T wave changes. This was unchanged compared to previous EKG dated 05/01/2021. Patient was given an additional 1 L bolus of normal saline. Patient's blood pressure improved with this. Patient was given hyperkalemia treatment with calcium gluconate, insulin, and glucose. Patient was weaned off the BiPAP. Case was discussed with hospitalist. He will admit the patient to PCU. Lab Data Attestation: I reviewed the patient's lab results. Labs: Laboratory Results - last 24 hr 05/07/21 05/07/21 05/07/21 04:57 04:57 05:25 WBC 13.8 H RBC 3.57 L Hgb 9.8 L Hct 32.8 L MCV 91.9 MCH 27.5 MCHC 29.9 L RDW Std Deviation 47.4 H RDW Coeff of Huy[place] 14.1 Plt Count 390 MPV 10.4 Immature Gran % (Auto) 0.900 Neut % (Auto) 67.2 Lymph % (Auto) 19.1 [place] % (Auto) 9.7 Eos % (Auto) 3.0 Baso % (Auto) 0.1 Absolute Neuts (auto) 9.3 H Absolute Lymphs (auto) 2.64 Nucleated RBC % 0 Sodium 133 L Potassium 6.1 H* Chloride 90 L Carbon Dioxide 36.0 H Anion Gap 7 BUN 107 H* Creatinine 3.72 H Estim Creat Clear Calc 10.47 Est GFR (MDRD) Af Amer 15 L Est GFR (MDRD) Non-Af 13 L BUN/Creatinine Ratio 28.8 H Glucose 113 H Calcium 9.2 Total Bilirubin 0.30 AST 39 H ALT 32 Alkaline Phosphatase 88 Troponin I 0.120 H B-Natriuretic Peptide 49.6 Total Protein 7.4 Albumin 3.5 Globulin 3.9 Albumin/Globulin Ratio 0.9 Urine Color Urine Clarity Urine pH Ur Specific [place] Urine Protein Urine Glucose (UA) Urine Ketones Urine Occult Blood Urine Nitrite Urine Bilirubin Urine Urobilinogen Ur Leukocyte Esterase Urine RBC Urine WBC Ur Squamous Epith Cells Urine Bacteria Urine Mucus 05/07/21 06:45 WBC RBC Hgb Hct MCV MCH MCHC RDW Std Deviation RDW Coeff of [place] Plt Count MPV Immature Gran % (Auto) Neut % (Auto) Lymph % (Auto) [place] % (Auto) Eos % (Auto) Baso % (Auto) Absolute Neuts (auto) Absolute Lymphs (auto) Nucleated RBC % Sodium Potassium Chloride Carbon Dioxide Anion Gap BUN Creatinine Estim Creat Clear Calc Est GFR (MDRD) Af Amer Est GFR (MDRD) Non-Af BUN/Creatinine Ratio Glucose Calcium Total Bilirubin AST ALT Alkaline Phosphatase Troponin I B-Natriuretic Peptide Total Protein Albumin Globulin Albumin/Globulin Ratio Urine Color Yellow Urine Clarity Clear Urine pH 6.0 Ur Specific [place] 1.010 Urine Protein 15 H Urine Glucose (UA) Normal Urine Ketones Negative Urine Occult Blood 25 H Urine Nitrite Negative Urine Bilirubin Negative Urine Urobilinogen Normal Ur Leukocyte Esterase Negative Urine RBC 0-5 SEEN Urine WBC 0 SEEN Ur Squamous Epith Cells 0-5 SEEN Urine Bacteria 0 SEEN Urine Mucus 0 SEEN Radiography Chest X-Ray - ED: 1 View, Read by ED Physician, Unchanged and Normal EKG Initial EKG: Attestation: I personally reviewed and interpreted this EKG as follows: Interpretation: Sinus Rhythm (100) and Non-Specific ST Changes Prior EKG tracings: available for review Prior: Unchanged (05/01/2021) Treatment and Re-Evaluation Vital Sign Attestation:: Vital signs were reviewed prior to admission. Patient's blood pressure improved. Vital signs are stable. Discharge Plan Dx/Rx/DC Orders Clinical Impression: Acute kidney injury, Hyperkalemia Disposition Disposition: Acute Care Hospital [facility]
[2021-05-07 05:25] LABS: Absolute Lymphocyte Count 2.64 X10^3/uL (0.83-4.51); Absolute Neutrophil Count 9.3 X10^3/uL (2.0-7.7); Basophil# 0.02 X10^3/uL; Basophil% 0.1 % (0-1); Eosinophil# 0.41 X10^3/uL; Hematocrit 32.8 % (37-47); Hemoglobin 9.8 g/dL (12.0-15.0); Lymphocyte # 2.64 X10^3/ul (0.83-4.51); Lymphocyte % 19.1 % (19-41); Mean Corp Hgb Conc 29.9 g/dL (32-36); Mean Corpuscular Hgb 27.5 pg (27.0-32.0); Mean Corpuscular Volume 91.9 fL (81-99); Mean Platelet Vol. 10.4 fl (6.2-12.0); Monocyte# 1.34 X10^3/uL; Monocyte% 9.7 % (0-10); NRBC Flagged by Analyzer 0 % (0-5); Neutrophil # 9.28 X10^3/uL (2.7-7.7); Neutrophil % 67.2 % (47-70); Platelet Count 390 K/mm3 (150-450); RBC Distribution Width CV 14.1 % (11.6-14.6); RBC Distribution Width SD 47.4 fl (35.1-43.9); Red Blood Count 3.57 M/mm3 (4.2-5.4); White Blood Count 13.8 K/mm3 (4.4-11.0)
[2021-05-07 05:51] LABS: BNP,B-Type NATRIURETIC PEPTIDE 49.6 pg/mL (0-100)
[2021-05-07 06:14] LABS: ALB/GLOB Ratio 0.9 RATIO (0.9-2.4); AST(SGOT) 39 U/L (15-37); Alanine Aminotransfer ALT/SGPT 32 U/L (13-56); Albumin, Serum 3.5 g/dL (3.2-5.0); Alkaline Phosphatase 88 U/L (45-117); Anion Gap 7 (5-15); BUN 107 mg/dL (7-18); BUN/Creat Ratio 28.8 RATIO (10-20); Calcium,Total 9.2 mg/dL (8.5-10.1); Chloride 90 mmol/L (98-107); Creatinine, Serum 3.72 mg/dL (0.55-1.02); EST Glomerular Filtration Rate 13 mL/min (>60); Est Glom Filt Rate - Afr Amer 15 mL/min (>60); Estimated Creatinine Clearance 10.47 ml/min; Globulin 3.9 g/dL (2.2-4.2); Glucose 113 mg/dL (74-106); Potassium 6.1 mmol/L (3.5-5.1); Protein, Total 7.4 g/dL (6.4-8.2); Sodium Level 133 mmol/L (136-145)
[2021-05-07] MEDS: 0.9% Normal Saline 1,000 ML 1000 ML IV (06:42)
[2021-05-07 06:52] LABS: Bacteria 0 SEEN /hpf (None Seen); Mucous, Urine 0 SEEN /hpf (<or=2+); White Blood Cells 0 SEEN /hpf (0-5)
[2021-05-07 07:02] LABS: Color, Urine Yellow (Yellow); Glucose, Dipstick Normal (Normal); Ketone-Dipstick Negative (Negative); Leukocyte Esterase-Dipstick Negative /ul (Negative); Nitrite-Dipstick Negative (Negative); Occult Blood-Urine 25 /ul (Negative); Protein-Dipstick 15 mg/dl (Negative); Urine Bilirubin Dipstick Negative (Negative); Urine Clarity Clear (Clear); Urine Urobilinogen Normal (Normal)
[2021-05-07 07:09] LABS: Red Blood Cells-Urine 0-5 SEEN /hpf (0-5); Squamous Epithelial Cells - UA 0-5 SEEN /hpf (5-10)
--- NOTE | 2021-05-07 07:30 | CPS ---
ER doctor asked to see how pt would do off Bipap. pt was breathing 25's-30's on the bipap. pt is now breathing in the 20's off the bipap doing fine. Let ER doctor know. will cont. to watch.
--- NOTE | 2021-05-07 07:40 | NURSING ---
107 TABATHA DANIELLE, HYPERKALMIA
[2021-05-07] MEDS: Dextrose 50%-Water 25 GM/50 ML DISP.SYRIN IV (08:17)
[2021-05-07] MEDS: Insulin Lispro 10 UNIT in Syringe 0 ML 6 UNIT IV (08:17)
[2021-05-07] MEDS: 0.9% Normal Saline 1,000 ML 100 ML IV ×2 (09:31→17:37)
--- NOTE | 2021-05-07 14:15 | CASEMGMT ---
Pt is here from TCU. SW called TCU, spoke w/Dayanna, they will take pt back when ready, she will need a new precert. SW spoke w/pt and pt's sister in the room, confirmed plan will be to return to TCU when pt is ready. SW explained pt will need a new precert. Pt expressing frustration with health issues, support offered. Plan: return to TCU when ready, new precert needed. NINO Beck
[2021-05-07] MEDS: Carvedilol 6.25 MG Tablet PO (15:14)
[2021-05-07] MEDS: Acetaminophen 325 MG Tablet 650 MG PO (15:14)
--- NOTE | 2021-05-07 17:51 | PCM.HP.STD ---
[facility] - General General Date of Admission: 05/07/21 HPI Narrative DEDRICK BUSTILLO, is a 70 F who presents from the transitional care unit with shortness of breath. History is very limited given her expressive aphasia from her stroke in 2000. However she denies any chest pain but states that she is short of breath. She states that it appears similar to her previous COPD exacerbations. In the ER she was found to have a opponent of 0.12, on 28 April her troponin was 12.9. In the ER EKG did not demonstrate any acute change. She was found to be in acute renal failure with a creatinine of 3.72 and her BNP was normal therefore she was started on IV fluids. Also in the ER her potassium was found to be 6.1 and this was corrected with calcium gluconate and dextrose and insulin. [facility] Medical History (Updated 05/07/21 @ 17:[address] Robbin Lira MD) Atherosclerotic heart disease of [place] coronary artery without angina pectoris Chronic bronchitis COPD (chronic obstructive pulmonary disease) Dysphasia Essential hypertension Former smoker History of CVA (cerebrovascular accident) History of successful cardiopulmonary resuscitation Insomnia Lymphedema Obesity Home Medications aspirin 81 mg tablet,delayed release 81 mg PO QDAY 03/25/18 [History Last Taken 05/06/21] trazodone 100 mg tablet 100 mg PO QHS PRN #30 tablet 02/21/21 [Rx Last Taken 05/06/21] buspirone 7.5 mg PO BID 05/02/21 [History Last Taken 05/06/21] carvedilol [Coreg] 6.25 mg PO BIDCM 05/02/21 [History Last Taken 05/06/21] clopidogrel 75 mg PO DAILY 05/02/21 [History Last Taken 05/06/21] furosemide [Lasix] 40 mg PO BIDCM 05/02/21 [History Last Taken 05/06/21] isosorbide mononitrate 30 mg PO QHS 05/02/21 [History Last Taken 05/06/21] lisinopril 10 mg PO QDAY 05/02/21 [History Last Taken 05/06/21] montelukast 10 mg PO DAILY 05/02/21 [History Last Taken 05/06/21] warfarin 2 mg PO WE 05/02/21 [History Last Taken 05/02/21] warfarin 5 mg PO SUMOTUTHFRSA 05/02/21 [History Last Taken 05/06/21] albuterol sulfate [Ventolin] 2.5 mg INHALATION Q6H 05/07/21 [History Last Taken 05/06/21] atorvastatin [Lipitor] 20 mg PO QHS 05/07/21 [History Last Taken 05/06/21] budesonide [Pulmicort] 0.5 mg INHALATION BID 05/07/21 [History Last Taken 05/06/21] cefadroxil 1,000 mg PO BID 05/07/21 [History Last Taken 05/06/21] food supplemt, lactose-reduced [Ensure] 120 ml PO 4X/DAY 05/07/21 [History Last Taken 05/06/21] home oxygen 05/07/21 [History Last Taken Unknown] nebulizer 05/07/21 [History Last Taken Unknown] polyethylene glycol 3350 [Miralax] 17 g PO DAILY 05/07/21 [History Last Taken 05/06/21] sennosides-docusate sodium [Senokot-S] 1 tab-cap PO BID 05/07/21 [History Last Taken 05/06/21] Allergy/AdvReac Type Severity Reaction Status Date / Time contact metal agent Allergy Rash Verified 05/07/21 04:54 Family History Brother Heart disease Father Cancer Grandfather Cancer Sister Diabetes Surgical History History of appendectomy History of left heart catheterization (05/01/21) History of tonsillectomy Social History household members: family Smoking Status: Former smoker quit date: 12/01/19 pack-years: 55 alcohol intake: never substance use type: does not use what type of physical activity do you participate in: none ROS Review of Systems ROS Unobtainable: other Details: Severe expressive aphasia please see HPI from minimal ROS Vital Signs Vital Signs Vital Signs: 05/07/21 04:50 05/07/21 04:54 05/07/21 05:00 Temperature 96.2 F L Temperature Source Temporal Pulse Rate 101 H Pulse Strength Respiratory Rate 28 H Respiratory Effort Short of Breath Respiratory Depth Respiratory Pattern Blood Pressure 81/56 L 81/63 L Blood Pressure Mean 64 69 Blood Pressure Source Blood Pressure Position Blood Pressure Location Pulse Ox 93 Oxygen Delivery Method Nasal Cannula Oxygen Flow Rate (L/min) 4 Fraction of Inspired Oxygen (FIO2) 05/07/21 05:15 05/07/21 05:20 05/07/21 05:46 Temperature Temperature Source Pulse Rate 99 116 H 96 Pulse Strength Respiratory Rate 30 H 28 H 20 H Respiratory Effort Respiratory Depth Respiratory Pattern Tachypnea Blood Pressure 91/77 104/80 Blood Pressure Mean 81 88 Blood Pressure Source Blood Pressure Position Blood Pressure Location Pulse Ox 95 100 94 Oxygen Delivery Method Bi-pap Bi-pap Oxygen Flow Rate (L/min) Fraction of Inspired Oxygen (FIO2) 30 05/07/21 06:06 05/07/21 07:16 05/07/21 07:49 Temperature 97.5 F L 97.8 F Temperature Source Temporal Temporal Pulse Rate 96 111 H 104 H Pulse Strength Respiratory Rate 19 H 26 H 27 H Respiratory Effort Respiratory Depth Respiratory Pattern Blood Pressure 83/73 L 107/79 102/68 Blood Pressure Mean 76 88 79 Blood Pressure Source Blood Pressure Position Blood Pressure Location Pulse Ox 94 95 97 Oxygen Delivery Method Bi-pap Bi-pap Oxygen Flow Rate (L/min) Fraction of Inspired Oxygen (FIO2) 05/07/21 08:55 05/07/21 09:00 05/07/21 10:00 Temperature 98.3 F Temperature Source Oral Pulse Rate 108 H 88 Pulse Strength Respiratory Rate 22 H Respiratory Effort Normal Non-Labored Respiratory Depth Normal Respiratory Pattern Tachypnea Blood Pressure 102/53 L Blood Pressure Mean 69 Blood Pressure Source Monitor Blood Pressure Position Semi-Fowlers Blood Pressure Location Left Arm Pulse Ox 98 Oxygen Delivery Method Nasal Cannula Nasal Cannula Oxygen Flow Rate (L/min) 3 3 Fraction of Inspired Oxygen (FIO2) 05/07/21 10:07 05/07/21 10:55 05/07/21 11:51 Temperature 98.1 F Temperature Source Oral Pulse Rate 106 H Pulse Strength Weak (1+) Respiratory Rate 20 H Respiratory Effort Respiratory Depth Respiratory Pattern Blood Pressure 129/88 H Blood Pressure Mean 101 Blood Pressure Source Monitor Blood Pressure Position Semi-Fowlers Blood Pressure Location Left Forearm Pulse Ox 99 Oxygen Delivery Method Nasal Cannula Oxygen Flow Rate (L/min) 2 2 Fraction of Inspired Oxygen (FIO2) 05/07/21 15:00 05/07/21 15:08 05/07/21 16:55 Temperature 99.0 F Temperature Source Oral Pulse Rate 111 H 102 H 86 Pulse Strength Respiratory Rate 24 H 20 H Respiratory Effort Respiratory Depth Respiratory Pattern Tachypnea Blood Pressure 119/57 L Blood Pressure Mean 77 Blood Pressure Source Monitor Blood Pressure Position Semi-Fowlers Blood Pressure Location Left Forearm Pulse Ox 97 96 Oxygen Delivery Method Room Air Nasal Cannula Oxygen Flow Rate (L/min) 2 2 Fraction of Inspired Oxygen (FIO2) 05/07/21 17:38 Temperature Temperature Source Pulse Rate Pulse Strength Respiratory Rate Respiratory Effort Normal Non-Labored Respiratory Depth Normal Respiratory Pattern Normal Blood Pressure Blood Pressure Mean Blood Pressure Source Blood Pressure Position Blood Pressure Location Pulse Ox Oxygen Delivery Method Nasal Cannula Oxygen Flow Rate (L/min) 2 Fraction of Inspired Oxygen (FIO2) Weight Weight: 225 lb 12.054 oz Body Mass Index (BMI) 42.6 Physical Exam Const alert and no apparent distress General Appearance: cooperative HEENT normocephalic and moist oral mucous membranes Eyes PERRL, EOMs intact bilaterally and conjunctivae normal Neck supple and no JVD Resp normal respiratory effort, no retractions and no use of accessory muscles Auscultation: wheezes expiratory wheezes and scattered wheezes; Negative for crackles, rales or rhonchi Cardio regular rate, regular rhythm, S1 normal heart sound, S2 normal heart sound and no murmurs GI soft to palpation, non-tender and non-distended; Negative for hepatosplenomegaly Extremity no clubbing, cyanosis or edema Skin no rashes or lesions noted Neuro no focal motor deficits and no sensory deficits noted Psych affect normal Results Lab / Micro Data Result Diagrams: 05/07/21 04:57 05/07/21 05:25 Labs: Laboratory Results - last 24 hr 05/07/21 05/07/21 05/07/21 04:57 04:57 05:25 WBC 13.8 H RBC 3.57 L Hgb 9.8 L Hct 32.8 L MCV 91.9 MCH 27.5 MCHC 29.9 L RDW Std Deviation 47.4 H RDW Coeff of [place] 14.1 Plt Count 390 MPV 10.4 Immature Gran % (Auto) 0.900 Neut % (Auto) 67.2 Lymph % (Auto) 19.1 [place] % (Auto) 9.7 Eos % (Auto) 3.0 Baso % (Auto) 0.1 Absolute Neuts (auto) 9.3 H Absolute Lymphs (auto) 2.64 Nucleated RBC % 0 Sodium 133 L Potassium 6.1 H* Chloride 90 L Carbon Dioxide 36.0 H Anion Gap 7 BUN 107 H* Creatinine 3.72 H Estim Creat Clear Calc 10.47 Est GFR (MDRD) Af Amer 15 L Est GFR (MDRD) Non-Af 13 L BUN/Creatinine Ratio 28.8 H Glucose 113 H Calcium 9.2 Total Bilirubin 0.30 AST 39 H ALT 32 Alkaline Phosphatase 88 Troponin I 0.120 H B-Natriuretic Peptide 49.6 Total Protein 7.4 Albumin 3.5 Globulin 3.9 Albumin/Globulin Ratio 0.9 Urine Color Urine Clarity Urine pH Ur Specific [place] Urine Protein Urine Glucose (UA) Urine Ketones Urine Occult Blood Urine Nitrite Urine Bilirubin Urine Urobilinogen Ur Leukocyte Esterase Urine RBC Urine WBC Ur Squamous Epith Cells Urine Bacteria Urine Mucus 05/07/21 05/07/21 05/07/21 06:45 09:25 11:55 WBC RBC Hgb Hct MCV MCH MCHC RDW Std Deviation RDW Coeff of [place] Plt Count MPV Immature Gran % (Auto) Neut % (Auto) Lymph % (Auto) [place] % (Auto) Eos % (Auto) Baso % (Auto) Absolute Neuts (auto) Absolute Lymphs (auto) Nucleated RBC % Sodium Potassium Chloride Carbon Dioxide Anion Gap BUN Creatinine Estim Creat Clear Calc Est GFR (MDRD) Af Amer Est GFR (MDRD) Non-Af BUN/Creatinine Ratio Glucose Calcium Total Bilirubin AST ALT Alkaline Phosphatase Troponin I 0.120 H 0.143 H B-Natriuretic Peptide Total Protein Albumin Globulin Albumin/Globulin Ratio Urine Color Yellow Urine Clarity Clear Urine pH 6.0 Ur Specific [place] 1.010 Urine Protein 15 H Urine Glucose (UA) Normal Urine Ketones Negative Urine Occult Blood 25 H Urine Nitrite Negative Urine Bilirubin Negative Urine Urobilinogen Normal Ur Leukocyte Esterase Negative Urine RBC 0-5 SEEN Urine WBC 0 SEEN Ur Squamous Epith Cells 0-5 SEEN Urine Bacteria 0 SEEN Urine Mucus 0 SEEN Radiology Impression Chest X-Ray 05/07/21 05:15 IMPRESSION: No radiographic evidence of acute cardiopulmonary disease. at 0634 Reported and signed by: Bennie Apodaca MD Electronically Signed: Bennie Apodaca MD at 6:32 EDT Tel , Service support , Assessment & Plan Assessment/Plan (1) Acute respiratory failure with hypoxia: (2) COPD with acute exacerbation: (3) Acute kidney injury: (4) Hyperkalemia: PLAN: 1. Acute hypoxic respiratory failure secondary to COPD exacerbation -We will continue with duo nebs and Solu-Medrol 3 times daily -Wean oxygen as able -When asked yes/no questions, she says that yes this feels like a COPD exacerbation -We will continue 2. DANIELLE on CKD 3a -BNP is normal and she does not appear to have any signs of heart failure -We will continue with gentle IV fluids and monitor 3. Non-STEMI and CAD with recent cardiac cath/HTN/HLD -No stents were placed during her cardiac cath on 05/01/2021 -Continue with medical management including aspirin, Lipitor, Coreg, Plavix -We will hold her Lasix and her lisinopril secondary to her severe DANIELLE -Troponin is down to 0.120 and rechecks have remained stable 4. Anxiety/depression/chronic pain -Continue with BuSpar -Recommended that she follow-up with a pain doctor on discharge 5. History of CVA in 2000 with chronic expressive aphasia -Continue with her Coumadin as previously scheduled -Monitor INR 6. On a recent mission she did have a UTI this was treated with Rocephin and repeat culture on May 05 was negative for growth therefore this can be discontinued DVT: Coumadin Charges/Coding Visit Charges Inpatient E&M: 30801 Init Hosp L3
[2021-05-07] MEDS: busPIRone 5 MG Tablet 7.5 MG PO (21:59)
[2021-05-07] MEDS: Senna/Docusate Sodium 1 Tablet PO (22:00)
[2021-05-07] MEDS: Isosorbide Mononitrate 30 MG Tablet PO (22:00)
[2021-05-07] MEDS: Atorvastatin Calcium 20 MG Tablet PO (22:00)
[2021-05-08] VITALS (14 sets, daily range): BP systolic 131–161; BP diastolic 66–81; PULSE 91–116; RESP 18–32; TEMP 36.6–36.8; O2SAT 94–95
[2021-05-08] MEDS: 0.9% Normal Saline 1,000 ML 100 ML IV (03:40)
[2021-05-08 06:14] LABS: Absolute Lymphocyte Count 0.93 X10^3/uL (0.83-4.51); Absolute Neutrophil Count 11.1 X10^3/uL (2.0-7.7); Basophil# 0.01 X10^3/uL; Basophil% 0.1 % (0-1); Hematocrit 31.1 % (37-47); Hemoglobin 9.4 g/dL (12.0-15.0); Lymphocyte # 0.93 X10^3/ul (0.83-4.51); Lymphocyte % 7.6 % (19-41); Mean Corp Hgb Conc 30.2 g/dL (32-36); Mean Corpuscular Hgb 27.3 pg (27.0-32.0); Mean Corpuscular Volume 90.4 fL (81-99); Monocyte# 0.12 X10^3/uL; NRBC Flagged by Analyzer 0 % (0-5); Neutrophil # 11.08 X10^3/uL (2.7-7.7); Neutrophil % 90.4 % (47-70); Platelet Count 358 K/mm3 (150-450); RBC Distribution Width SD 45.3 fl (35.1-43.9); Red Blood Count 3.44 M/mm3 (4.2-5.4); White Blood Count 12.3 K/mm3 (4.4-11.0)
[2021-05-08 06:33] LABS: International Normalized Ratio 1.8; Prothrombin Time (Protime)PT. 19.7 SECONDS (11.7-14.9)
[2021-05-08 06:45] LABS: Anion Gap 3 (5-15); BUN 45 mg/dL (7-18); BUN/Creat Ratio 42.1 RATIO (10-20); Calcium,Total 9.6 mg/dL (8.5-10.1); Chloride 102 mmol/L (98-107); Creatinine, Serum 1.07 mg/dL (0.55-1.02); EST Glomerular Filtration Rate 54 mL/min (>60); Est Glom Filt Rate - Afr Amer 65 mL/min (>60); Estimated Creatinine Clearance 36.39 ml/min; Glucose 151 mg/dL (74-106); Potassium 5.6 mmol/L (3.5-5.1); Sodium Level 137 mmol/L (136-145)
[2021-05-08] MEDS: Ipratropium/Albuterol Sulfate 3 ML AMPUL.NEB INHALATION ×3 (07:31→18:53)
[2021-05-08] MEDS: Aspirin E.C. 81 MG Tablet PO (09:22)
[2021-05-08] MEDS: Carvedilol 6.25 MG Tablet PO ×2 (09:22→16:20)
[2021-05-08] MEDS: Clopidogrel Bisulfate 75 MG Tablet PO (09:22)
[2021-05-08] MEDS: busPIRone 5 MG Tablet 7.5 MG PO ×2 (09:22→21:08)
[2021-05-08] MEDS: Montelukast 10 MG Tablet PO (09:22)
--- NOTE | 2021-05-08 10:30 | PCM.PN.HOSP ---
Subjective Subjective Feels little bit better, states that she is breathing a little bit better today. She can only answer yes or no questions because of her expressive aphasia Objective Data Objective Data Vital Signs: Vital Signs Temp Pulse Resp BP Pulse Ox 98.0 F 110 H 18 145/69 H 94 05/08/21 09:20 05/08/21 09:20 05/08/21 09:20 05/08/21 09:20 05/08/21 09:20 Oxygen Flow Rate (L/min) 4 Oxygen Delivery Method Nasal Cannula Weight: 225 lb 12.054 oz Body Mass Index (BMI) 42.6 Intake & Output: Intake and Output for Last 24 Hours 05/07/21 05/08/21 05/09/21 03:59 03:59 03:59 Intake Total 4180 / 4180 693.33 / 693.33 Output Total 1800 / 1800 Balance 2380 / 2380 693.33 / 693.33 Lab / Micro Data Result Diagrams: 05/08/21 05:46 05/08/21 05:46 Labs: Laboratory Results - last 24 hr 05/07/21 05/08/21 05/08/21 11:55 05:46 05:46 WBC 12.3 H RBC 3.44 L Hgb 9.4 L Hct 31.1 L MCV 90.4 MCH 27.3 MCHC 30.2 L RDW Std Deviation 45.3 H RDW Coeff of [place] 14.0 Plt Count 358 MPV 10.0 Immature Gran % (Auto) 0.900 Neut % (Auto) 90.4 H Lymph % (Auto) 7.6 L [place] % (Auto) 1.0 Eos % (Auto) 0.0 Baso % (Auto) 0.1 Absolute Neuts (auto) 11.1 H Absolute Lymphs (auto) 0.93 Nucleated RBC % 0 PT INR Sodium 137 Potassium 5.6 H Chloride 102 Carbon Dioxide 32.0 Anion Gap 3 L BUN 45 H Creatinine 1.07 H Estim Creat Clear Calc 36.39 Est GFR (MDRD) Af Amer 65 Est GFR (MDRD) Non-Af 54 L BUN/Creatinine Ratio 42.1 H Glucose 151 H Calcium 9.6 Troponin I 0.143 H 05/08/21 05:46 WBC RBC Hgb Hct MCV MCH MCHC RDW Std Deviation RDW Coeff of [place] Plt Count MPV Immature Gran % (Auto) Neut % (Auto) Lymph % (Auto) [place] % (Auto) Eos % (Auto) Baso % (Auto) Absolute Neuts (auto) Absolute Lymphs (auto) Nucleated RBC % PT 19.7 H INR 1.8 Sodium Potassium Chloride Carbon Dioxide Anion Gap BUN Creatinine Estim Creat Clear Calc Est GFR (MDRD) Af Amer Est GFR (MDRD) Non-Af BUN/Creatinine Ratio Glucose Calcium Troponin I Radiography Diagnostic Testing: Radiology Impression Chest X-Ray 05/07/21 05:15 IMPRESSION: No radiographic evidence of acute cardiopulmonary disease. at 0634 Reported and signed by: Bennie Apodaca MD Electronically Signed: Bennie Apodaca MD at 6:32 EDT Tel , Service support , Physical Exam Const alert, oriented x3 and no apparent distress General Appearance: cooperative HEENT normocephalic and moist oral mucous membranes Eyes PERRL, EOMs intact bilaterally and conjunctivae normal Neck supple and no JVD Resp normal respiratory effort, no retractions and no use of accessory muscles Auscultation: Negative for crackles, rales, rhonchi or wheezes Cardio regular rate, regular rhythm, S1 normal heart sound, S2 normal heart sound and no murmurs GI soft to palpation, non-tender and non-distended; Negative for hepatosplenomegaly Extremity no clubbing, cyanosis or edema Skin no rashes or lesions noted Neuro no focal motor deficits and no sensory deficits noted Psych affect normal Assessment & Plan Assessment/Plan (1) Acute respiratory failure with hypoxia: (2) COPD with acute exacerbation: (3) Acute kidney injury: (4) Hyperkalemia: PLAN: 1. Acute hypoxic respiratory failure secondary to COPD exacerbation -We will continue with duo nebs and Solu-Medrol 3 times daily -When asked yes/no questions, she says that yes this feels like a COPD exacerbation -She is back to her baseline oxygen requirements of 2 to 3 L nasal cannula 2. DANIELLE on CKD 3a -BNP is normal and she does not appear to have any signs of heart failure -DANIELLE has resolved and her creatinine has returned almost to baseline 3. Non-STEMI and CAD with recent cardiac cath/HTN/HLD -No stents were placed during her cardiac cath on 05/01/2021 -Continue with medical management including aspirin, Lipitor, Coreg, Plavix -We will hold her Lasix and her lisinopril secondary to her severe DANIELLE -Troponin is down to 0.120 and rechecks have remained stable, this is likely in conjunction with the combined renal failure and recent non-STEMI 4. Anxiety/depression/chronic pain -Continue with BuSpar -Recommended that she follow-up with a pain doctor on discharge 5. History of CVA in 2000 with chronic expressive aphasia -Continue with her Coumadin as previously scheduled -Monitor INR 6. On a recent mission she did have a UTI this was treated with Rocephin and repeat culture on May 05 was negative for growth therefore her antibiotic can be discontinued DVT: Coumadin Charges/Coding Visit Charges Inpatient E&M: 95063 Subs Hosp L2
--- NOTE | 2021-05-08 12:11 | CASEMGMT ---
[place] spoke with Dayanna in TCU and asked her to start pre-cert. Plan: d/c back to TCU when medically ready and insurance approves. Wandy Canales [employer]
--- NOTE | 2021-05-08 12:13 | CASEMGMT ---
Addendum entered by Alina Whalen 05/08/21 13:24: Received tc back from [facility] and pt is on their roster. No need for new referral. Original Note: RN CM Readmission Note Previous Admission: 04/27/21-05/02/21 Diagnosis: acute cystitis, abn troponins DC Disposition: [facility] TCU Current Admission Presentation: CP Pt presented to ER from [facility] TCU with CP and sob. Pt required bipap and was found to be in acute renal failure. Pt recently had heart cath on 05/01/21. Pt currently on 4L O2 NC, receiving gentle IVF. Plan is for pt to return to TCU when medically ready. TC to [facility] as pt was seen on 05/01/21. Left message with [facility] to verify if patient is active with services. Will await returned call.
[2021-05-08] MEDS: 0.9% Saline Lock 10 ML Syringe IV ×3 (13:12→23:10)
[2021-05-08] MEDS: Isosorbide Mononitrate 30 MG Tablet PO (21:08)
[2021-05-08] MEDS: Atorvastatin Calcium 20 MG Tablet PO (21:08)
[2021-05-09] VITALS (10 sets, daily range): BP systolic 138–152; BP diastolic 70–79; PULSE 76–120; RESP 18–24; TEMP 36.6–36.9; O2SAT 94–97
[2021-05-09 05:49] LABS: International Normalized Ratio 1.9; Prothrombin Time (Protime)PT. 21.3 SECONDS (11.7-14.9)
[2021-05-09 05:54] LABS: Anion Gap 5 (5-15); BUN 41 mg/dL (7-18); BUN/Creat Ratio 45.3 RATIO (10-20); Calcium,Total 9.7 mg/dL (8.5-10.1); Chloride 103 mmol/L (98-107); EST Glomerular Filtration Rate 65 mL/min (>60); Est Glom Filt Rate - Afr Amer 79 mL/min (>60); Estimated Creatinine Clearance 43.26 ml/min; Glucose 157 mg/dL (74-106); Potassium 5.2 mmol/L (3.5-5.1); Sodium Level 137 mmol/L (136-145)
[2021-05-09] MEDS: 0.9% Saline Lock 10 ML Syringe IV ×2 (05:59→09:43)
[2021-05-09] MEDS: Ipratropium/Albuterol Sulfate 3 ML AMPUL.NEB INHALATION ×2 (07:10→11:12)
--- NOTE | 2021-05-09 09:29 | PCM.TXEXTCAR ---
Diet 05/07/21 08:40 Diet: Cardiac: Calorie-Controlled Food consistency:: Regular Liquid Consistency:: Regular/Thin Diet Comments: Distant supervision, check for pocketing How many daily calories?: 1600 calorie Routine Orders/Code Status Routine Lab Work: BMP Code Status: Full Code Therapies Physical Therapy: Eval and Treat Occupational Therapy: Eval and Treat Problem/Diagnosis (1) Acute respiratory failure with hypoxia: Status: Acute (2) COPD with acute exacerbation: Status: Chronic (3) Acute kidney injury: Status: Acute (4) Hyperkalemia: Status: Acute Allergies/Procedures Done in Hospital Allergies contact metal agent Allergy (Verified 05/07/21 04:54) Rash Procedures: None Type of Care/Length of Stay Estimated LOS: Convalescent Care Less Than 30 days Type of Care Needed: Skilled Rehab Potential: Good Prognosis: Good Additional Orders/Day of Discharge Day of Discharge: 05/09/21 Dietary and Speech Recommendations Dietitian Recommendations/Changes: Rec continue current diet as ordered - monitor need for consistency modifications when pt more awake d/t edentulous Monitor need for ONS as po intake established - d/c if not indicated Speech Linguistic Eval Summary: The pt was oriented to self (via writing), city (verbally), age within 1 year (written). Given field of 2-3 written choices, the pt oriented to place, month, and year. When asked if she has been experiencing confusion, the pt responded yes. Reviewed recent transfer of care from TCU to PCU. Pt required reassuring that her family knew her location, as she perseverated on her children not knowing her whereabouts. Additionally, the patient perseverated on back pain experienced when standing. She denies pain at this time. Auditory Comprehension: The pt followed simple commands with approximately 80% acc with frequent verbal repetition. Verbal and Written Communication: She was able to verbally communicate her sister's name and relation, as well as current city. She presented with nonfluent, disorganized, anomic speech in conversation. Provided pt a notepad to answer simple questions in conversation. She was able to write her name and age (off by 1 year). She was unable to write how many children she had, writing great grandma instead. Reading: Tasked the pt to locate various words (e.g. help, yes, no, pain) on a communication board. Pt located words with 1/7 acc. The pt presents with moderate-severe expressive and receptive aphasia. The pt's sister, Clair, stated that the pt appears to be at baseline for communication abilities. Pt agreeable to continue with speech therapy services to further train in writing, alphabet/number boards, and low tech communication boards to improve pt's ability to meet wants and needs. Clair noted the pt often becomes frustrated at home when she is unable to express wants and needs to her family. Discharge Plan Admission Admit Date/Time: 05/07/21 07:31 Attending Provider: Robbin Lira Primary Care Provider: Romario Aguilar Discharge Orders/Prescriptions Prescriptions: New prednisone 20 mg tablet 40 mg PO DAILY Qty: 14 RF: 0 Continued aspirin 81 mg tablet,delayed release (DR/EC) 81 mg PO QDAY RF: 0 trazodone 100 mg tablet 100 mg PO QHS PRN (Reason: sleep) Qty: 30 RF: 2 furosemide [Lasix] 40 mg tablet 40 mg PO BIDCM RF: 0 isosorbide mononitrate 30 mg tablet extended release 24 hr 30 mg PO QHS RF: 0 clopidogrel 75 mg tablet 75 mg PO DAILY RF: 0 carvedilol [Coreg] 3.125 mg tablet 6.25 mg PO BIDCM RF: 0 lisinopril 10 mg tablet 10 mg PO QDAY RF: 0 warfarin 2 mg tablet 2 mg PO WE RF: 0 warfarin 5 mg tablet 5 mg PO SUMOTUTHFRSA RF: 0 buspirone 7.5 mg tablet 7.5 mg PO BID RF: 0 montelukast 10 mg tablet 10 mg PO DAILY RF: 0 Ensure Liquid 120 ml PO 4X/DAY RF: 0 atorvastatin [Lipitor] 20 mg Tablet 20 mg PO QHS RF: 0 albuterol sulfate 2.5 mg /3 mL (0.083 %) Solution For Nebulization 2.5 mg inhalation Q6H RF: 0 polyethylene glycol 3350 [Miralax] 17 gram Powder In Packet 17 g PO DAILY RF: 0 sennosides-docusate sodium [Senokot-S] 8.6-50 mg Tablet 1 tab-cap PO BID RF: 0 budesonide [Pulmicort] 0.5 mg/2 mL Suspension For Nebulization 0.5 mg INHALATION BID RF: 0 (DME) home oxygen RF: 0 (DME) nebulizer See Rx Instructions RF: 0 Discontinued cefadroxil 500 mg Capsule 1,000 mg PO BID RF: 0 Referrals / Follow Up: Romario Aguilar DO [Primary Care Provider] - Within 2 Weeks Disposition Disposition (needs filled in before D/C Order can be placed): [facility]
[2021-05-09] MEDS: Aspirin E.C. 81 MG Tablet PO (09:41)
[2021-05-09] MEDS: busPIRone 5 MG Tablet 7.5 MG PO (09:41)
[2021-05-09] MEDS: Carvedilol 6.25 MG Tablet PO (09:41)
[2021-05-09] MEDS: Clopidogrel Bisulfate 75 MG Tablet PO (09:42)
[2021-05-09] MEDS: Montelukast 10 MG Tablet PO (09:43)
--- NOTE | 2021-05-09 09:53 | PHA.DC.MR ---
Pharmacy Service has performed discharge medication reconciliation for this patient. The patient's discharge medication list was reviewed for discrepancies and discrepancies were resolved. Home Medications aspirin 81 mg tablet,delayed release 81 mg PO QDAY 03/25/18 trazodone 100 mg tablet 100 mg PO QHS PRN #30 tablet 02/21/21 buspirone 7.5 mg PO BID 05/02/21 carvedilol [Coreg] 6.25 mg PO BIDCM 05/02/21 clopidogrel 75 mg PO DAILY 05/02/21 furosemide [Lasix] 40 mg PO BIDCM 05/02/21 isosorbide mononitrate 30 mg PO QHS 05/02/21 lisinopril 10 mg PO QDAY 05/02/21 montelukast 10 mg PO DAILY 05/02/21 warfarin 2 mg PO WE 05/02/21 warfarin 5 mg PO SUMOTUTHFRSA 05/02/21 Ensure 120 ml PO 4X/DAY 05/07/21 albuterol sulfate 2.5 mg INHALATION Q6H 05/07/21 atorvastatin [Lipitor] 20 mg PO QHS 05/07/21 budesonide [Pulmicort] 0.5 mg INHALATION BID 05/07/21 home oxygen 05/07/21 nebulizer 05/07/21 polyethylene glycol 3350 [Miralax] 17 g PO DAILY 05/07/21 sennosides-docusate sodium [Senokot-S] 1 tab-cap PO BID 05/07/21 prednisone 40 mg PO DAILY #14 tab 05/09/21
--- NOTE | 2021-05-09 10:09 | PCM.DC.SUM ---
Providers Date of Admission: 05/07/21 Primary Care Physician: Dr. Romario Aguilar, DO Reason For Visit: ARF AFTER HEART CATH & ACUTE HYPOXIC RESP FAILURE Diagnosis Discharge Diagnosis (1) Acute respiratory failure with hypoxia: Status: Acute Code(s): J96.01 - Acute respiratory failure with hypoxia (2) COPD with acute exacerbation: Status: Chronic Code(s): J44.1 - Chronic obstructive pulmonary disease with (acute) exacerbation (3) Acute kidney injury: Status: Acute Code(s): N17.9 - Acute kidney failure, unspecified (4) Hyperkalemia: Status: Acute Code(s): E87.5 - Hyperkalemia Medications at Discharge Home Medications aspirin 81 mg tablet,delayed release 81 mg PO QDAY 03/25/18 trazodone 100 mg tablet 100 mg PO QHS PRN #30 tablet 02/21/21 buspirone 7.5 mg PO BID 05/02/21 carvedilol [Coreg] 6.25 mg PO BIDCM 05/02/21 clopidogrel 75 mg PO DAILY 05/02/21 furosemide [Lasix] 40 mg PO BIDCM 05/02/21 isosorbide mononitrate 30 mg PO QHS 05/02/21 lisinopril 10 mg PO QDAY 05/02/21 montelukast 10 mg PO DAILY 05/02/21 warfarin 2 mg PO WE 05/02/21 warfarin 5 mg PO SUMOTUTHFRSA 05/02/21 Ensure 120 ml PO 4X/DAY 05/07/21 albuterol sulfate 2.5 mg INHALATION Q6H 05/07/21 atorvastatin [Lipitor] 20 mg PO QHS 05/07/21 budesonide [Pulmicort] 0.5 mg INHALATION BID 05/07/21 home oxygen 05/07/21 nebulizer 05/07/21 polyethylene glycol 3350 [Miralax] 17 g PO DAILY 05/07/21 sennosides-docusate sodium [Senokot-S] 1 tab-cap PO BID 05/07/21 prednisone 40 mg PO DAILY #14 tab 05/09/21 Hospital Course Operations None Procedures None Summary of Care Provided Minutes Spent on Discharge: 35 Hospital Course: Per HPI: DEDRICK BUSTILLO, is a 70 F who presents from the transitional care unit with shortness of breath. History is very limited given her expressive aphasia from her stroke in 2000. However she denies any chest pain but states that she is short of breath. She states that it appears similar to her previous COPD exacerbations. In the ER she was found to have a troponin of 0.12, on 28 April her troponin was 12.9. In the ER EKG did not demonstrate any acute change. She was found to be in acute renal failure with a creatinine of 3.72 and her BNP was normal therefore she was started on IV fluids. Also in the ER her potassium was found to be 6.1 and this was corrected with calcium gluconate and dextrose and insulin. Hospital Course: 1. Acute hypoxic respiratory failure secondary to COPD [id number] female presented with shortness of breath and transitional care unit. On exam she was diminished with wheezes and she stated was consistent with previous COPD exacerbations. She was started on duo nebs and Solu-Medrol and improved significantly. She is back down to her baseline oxygen requirements. I discussed with her today the plan for discharge and she expressed understanding of the risk and benefits and would like to go to SNF today. Medication is difficult however she does seem able to respond to yes and no questions consistently. 2. DANIELLE on CKD 3a- DANIELLE has resolved and she is returned back to baseline 3. Non-STEMI with CAD and a recent cath/HTN/HLD-5 to 6 days prior to admission she was in this hospital with a non-STEMI. Her troponin had risen to over 12. On admission she was found to have a slight elevation of troponin to 0.12, this is likely consistent with her hypoxia after cardiac event due to COPD exacerbation. She was denying chest pain during her entire stay. Her home medications were continued where appropriate 4. History of a CVA in 2000 with chronic expressive aphasia makes communication difficult. Continue with her Coumadin her INR on discharge was 1.9. 5. Anxiety, depression, chronic pain are all chronic medical conditions which complicate her care. Her home medications were continued were appropriate. 6. At the transitional care unit she was started on antibiotics for a UTI unfortunately cultures on 05 05 were negative and she had recently completed treatment for UTI with Rocephin therefore this antibiotic was discontinued on admission and not continued on discharge. Physical Exam Const alert, oriented x3 and no apparent distress General Appearance: cooperative HEENT normocephalic and moist oral mucous membranes Eyes PERRL, EOMs intact bilaterally and conjunctivae normal Neck supple and no JVD Resp normal respiratory effort, no retractions and no use of accessory muscles Auscultation: Negative for crackles, rales, rhonchi or wheezes Cardio regular rate, regular rhythm, S1 normal heart sound, S2 normal heart sound and no murmurs GI soft to palpation, non-tender and non-distended; Negative for hepatosplenomegaly Extremity no clubbing, cyanosis or edema Skin no rashes or lesions noted Neuro no focal motor deficits and no sensory deficits noted Psych affect normal Weight / BMI Weight Weight: 225 lb 12.054 oz Body Mass Index (BMI) 42.6 ABG / Lab / Microbiology Data Result Diagrams: 05/08/21 05:46 05/09/21 05:20 Laboratory: Laboratory Results - last 24 hr 05/09/21 05/09/21 05:20 05:20 PT 21.3 H INR 1.9 Sodium 137 Potassium 5.2 H Chloride 103 Carbon Dioxide 29.0 Anion Gap 5 BUN 41 H Creatinine 0.90 Estim Creat Clear Calc 43.26 Est GFR (MDRD) Af Amer 79 Est GFR (MDRD) Non-Af 65 BUN/Creatinine Ratio 45.3 H Glucose 157 H Calcium 9.7 Meaningful Use Info Meaningful Use Diagnoses (Choose all that apply): None applicable Discharge Plan Admission Admit Date/Time: 05/07/21 07:31 Attending Provider: Robbin Lira Primary Care Provider: Romario Aguilar Instructions Additional Instructions / Restrictions: Patient Problems: Altered Health Status related to Hospitalization Patient Goals: *Optimal Level of Health *Keep Appointments *Medication Compliance *Remain SafePatient Problems: Altered Health Status related to Hospitalization Patient Goals: *Optimal Level of Health *Keep Appointments *Medication Compliance *Remain Safe Discharge Orders/Prescriptions Prescriptions: New prednisone 20 mg tablet 40 mg PO DAILY Qty: 14 RF: 0 Continued aspirin 81 mg tablet,delayed release (DR/EC) 81 mg PO QDAY RF: 0 trazodone 100 mg tablet 100 mg PO QHS PRN (Reason: sleep) Qty: 30 RF: 2 furosemide [Lasix] 40 mg tablet 40 mg PO BIDCM RF: 0 isosorbide mononitrate 30 mg tablet extended release 24 hr 30 mg PO QHS RF: 0 clopidogrel 75 mg tablet 75 mg PO DAILY RF: 0 carvedilol [Coreg] 3.125 mg tablet 6.25 mg PO BIDCM RF: 0 lisinopril 10 mg tablet 10 mg PO QDAY RF: 0 warfarin 2 mg tablet 2 mg PO WE RF: 0 warfarin 5 mg tablet 5 mg PO SUMOTUTHFRSA RF: 0 buspirone 7.5 mg tablet 7.5 mg PO BID RF: 0 montelukast 10 mg tablet 10 mg PO DAILY RF: 0 Ensure Liquid 120 ml PO 4X/DAY RF: 0 atorvastatin [Lipitor] 20 mg Tablet 20 mg PO QHS RF: 0 albuterol sulfate 2.5 mg /3 mL (0.083 %) Solution For Nebulization 2.5 mg inhalation Q6H RF: 0 polyethylene glycol 3350 [Miralax] 17 gram Powder In Packet 17 g PO DAILY RF: 0 sennosides-docusate sodium [Senokot-S] 8.6-50 mg Tablet 1 tab-cap PO BID RF: 0 budesonide [Pulmicort] 0.5 mg/2 mL Suspension For Nebulization 0.5 mg INHALATION BID RF: 0 (DME) home oxygen RF: 0 (DME) nebulizer See Rx Instructions RF: 0 Discontinued cefadroxil 500 mg Capsule 1,000 mg PO BID RF: 0 Referrals / Follow Up: Romario Aguilar DO [Primary Care Provider] - Within 2 Weeks Disposition Disposition (needs filled in before D/C Order can be placed): Long Term Facility Charges/Coding Visit Charges Inpatient E&M: 55503 Disch Hosp
--- NOTE | 2021-05-09 10:30 | CASEMGMT ---
Patient's sister arrived stating she was told to come in today at 10a for a meeting. SW is thinking this was supposed to be a plan of care meeting in TCU. However, since patient is admitted to the acute side they would not have the meeting. She also asked when patient was going home. ORVILLE met with patient and her sister. ORVILLE asked about the meeting and she said, They called her last week and asked her to come in today at 10a. She did not know who called her. ORVILLE told her it was likely a plan of care meeting for TCU, but since she is in the hospital they would not have it. ORVILLE told them that the plan is for patient to go back to TCU for rehab, but we are waiting on pre-cert. ORVILLE told them if insurance gives us an answer today she will return today. Wandy TREADWELL
--- NOTE | 2021-05-09 11:50 | CASEMGMT ---
ORVILLE received a call from Dayanna and patient was approved to go to TCU. ORVILLE notified physician, studio operations engineer in charge, escrow secretary, patient, and her sister. Plan: d/c back to [facility] TCU under skilled level of care. Wandy TREADWELL
--- NOTE | 2021-05-09 13:00 | NURSING ---
Patient discharged to TCU via wheelchair. Report called and given to nurse.
== END 2021-05-09 13:20 | disposition skilled nursing facility (03) | DRG 190 ==
LOC: ED 07:34 → PCU 07:44
PROVIDERS: Nurse Practitioner Family; Admitting Provider Family Medicine; Emergency Provider Emergency Medicine; PCP Family Medicine; Visit Provider Family Medicine
DX: J44.1 Chronic obstructive pulmonary disease with (acute) exacerbation (principal); I21.4 Non-ST elevation (NSTEMI) myocardial infarction; J96.01 Acute respiratory failure with hypoxia; N17.9 Acute kidney failure, unspecified; Z68.41 Body mass index [BMI] 40.0-44.9, adult; E87.5 Hyperkalemia; I69.320 Aphasia following cerebral infarction; I12.9 Hypertensive chronic kidney disease with stage 1 through stage 4 chronic kidney disease, or unspecified chronic kidney disease; N18.31 Chronic kidney disease, stage 3a; I25.10 Atherosclerotic heart disease of native coronary artery without angina pectoris; E78.5 Hyperlipidemia, unspecified; G89.29 Other chronic pain; F32.9 Major depressive disorder, single episode, unspecified; F41.9 Anxiety disorder, unspecified; E66.9 Obesity, unspecified; Z79.01 Long term (current) use of anticoagulants; Z79.02 Long term (current) use of antithrombotics/antiplatelets; Z79.51 Long term (current) use of inhaled steroids; Z79.82 Long term (current) use of aspirin; Z79.899 Other long term (current) drug therapy; Z87.891 Personal history of nicotine dependence
CPT/HCPCS: 36415; 71045; 80048; 80053; 81001; 83880; 84484; 85025; 85610; 92507; 92523; 92526; 92610; 93005; 94002; 94640; 97110; 97162; 97166; 97530; 97535; 97802; 99285; J7030; J7040; A4216; J0610

== ENCOUNTER 2021-05-09 13:40 | Inpatient (IN) | payer MEDICARE, SELFPAY ==
[2021-05-07 08:43] VITALS: BMI 42.6
[2021-05-09 13:51] VITALS: BP 180/85; PULSE 104; RESP 20; TEMP 36.2; O2SAT 98; BMI 41.8
[2021-05-09] MEDS: Furosemide 40 MG Tablet PO (16:22)
[2021-05-09] MEDS: busPIRone 15 MG TABLET 7.5 MG PO (16:22)
[2021-05-09] MEDS: Jantoven 2 MG Tablet PO (16:22)
[2021-05-09] MEDS: Senna/Docusate Sodium 1 Tablet PO (16:24)
[2021-05-09] MEDS: Carvedilol 6.25 MG Tablet PO (16:24)
[2021-05-09] MEDS: Nystatin Powder 15gm Bottle 1 APPLIC TOPICAL (16:25)
[2021-05-09] MEDS: Menthol/Lanolin/Calamine/Znox 113 GM Tube 1 APPLIC TOPICAL (16:25)
[2021-05-09 16:50] VITALS: O2SAT 93
[2021-05-09 19:50] VITALS: PULSE 113; RESP 24; O2SAT 94
[2021-05-09] MEDS: Albuterol 2.5 MG/3 ML VIAL.NEB. INHALATION (19:50)
[2021-05-09] MEDS: Budesonide Respules 0.5 MG/2 ML AMPUL.NEB. INHALATION (19:50)
[2021-05-09] MEDS: Isosorbide Mononitrate 30 MG Tablet PO (20:09)
[2021-05-09] MEDS: Atorvastatin Calcium 20 MG Tablet PO (20:09)
--- NOTE | 2021-05-09 20:12 | HP.PCM_ITS ---
HPI - General General Date of Admission: 05/09/21 HPI Narrative 05/07/2021 DEDRICK BUSTILLO, is a 70 Female who presents from TCU to [facility] Emergency Department with chest pain, shortness of breath. Patient denied chest pain, but admits to shortness of breath. Troponin 0.12. Acute kidney injury, Cr 3.72, BNP okay. IV fluids for acute kidney injury. Potassium 6.1 corrected with calcium gluconate, dextrose, insulin. Shortness of breath secondary to COPD exacerbation resolved with aerosols, Solu- Medrol. Acute kidney injury resolved to baseline. Chest pain resolved. Urinary tract infection resolved, antibiotic stopped. 05/09/2021 Admit to TCU with debility, here for rehabilitation, strengthening, prior to discharge home with family. [facility] Medical History Atherosclerotic heart disease of [place] coronary artery without angina pectoris Chronic bronchitis COPD (chronic obstructive pulmonary disease) Dysphasia Essential hypertension Former smoker History of CVA (cerebrovascular accident) History of successful cardiopulmonary resuscitation Insomnia Lymphedema Obesity Home Medications aspirin 81 mg tablet,delayed release 81 mg PO QDAY 03/25/18 [History Last Taken 05/06/21] trazodone 100 mg tablet 100 mg PO QHS PRN #30 tablet 02/21/21 [Rx Last Taken 05/06/21] buspirone 7.5 mg PO BID 05/02/21 [History Last Taken 05/06/21] carvedilol [Coreg] 6.25 mg PO BIDCM 05/02/21 [History Last Taken 05/06/21] clopidogrel 75 mg PO DAILY 05/02/21 [History Last Taken 05/06/21] furosemide [Lasix] 40 mg PO BIDCM 05/02/21 [History Last Taken 05/06/21] isosorbide mononitrate 30 mg PO QHS 05/02/21 [History Last Taken 05/06/21] lisinopril 10 mg PO QDAY 05/02/21 [History Last Taken 05/06/21] montelukast 10 mg PO DAILY 05/02/21 [History Last Taken 05/06/21] warfarin 2 mg PO WE 05/02/21 [History Last Taken 05/02/21] warfarin 5 mg PO SUMOTUTHFRSA 05/02/21 [History Last Taken 05/06/21] Ensure 120 ml PO 4X/DAY 05/07/21 [History Last Taken 05/06/21] albuterol sulfate 2.5 mg INHALATION Q6H 05/07/21 [History Last Taken 05/06/21] atorvastatin [Lipitor] 20 mg PO QHS 05/07/21 [History Last Taken 05/06/21] budesonide [Pulmicort] 0.5 mg INHALATION BID 05/07/21 [History Last Taken 05/06/21] home oxygen 05/07/21 [History Last Taken Unknown] nebulizer 05/07/21 [History Last Taken Unknown] polyethylene glycol 3350 [Miralax] 17 g PO DAILY 05/07/21 [History Last Taken 05/06/21] sennosides-docusate sodium [Senokot-S] 1 tab-cap PO BID 05/07/21 [History Last Taken 05/06/21] prednisone 40 mg PO DAILY 05/09/21 [History Last Taken Unknown] Allergy/AdvReac Type Severity Reaction Status Date / Time contact metal agent Allergy Rash Verified 05/07/21 04:54 Family History Brother Heart disease Father Cancer Grandfather Cancer Sister Diabetes Surgical History History of appendectomy History of left heart catheterization (05/01/21) History of tonsillectomy Social History household members: family Smoking Status: Former smoker quit date: 12/01/19 pack-years: 55 alcohol intake: never substance use type: does not use what type of physical activity do you participate in: none ROS Constitutional Constitutional: Denies chills, fever(s) or weight gain ENT HEENT: Denies headache(s), nasal congestion or nasal discharge Cardiovascular Cardiovascular: Denies chest pain or palpitations Respiratory/Chest Respiratory/Chest: Denies cough, excessive phlegm production or shortness of breath with exertion Gastrointestinal Gastrointestinal: Denies abdominal pain, nausea or vomiting Genitourinary Genitourinary: Denies dysuria Musculoskeletal Musculoskeletal: Denies joint pain or joint swelling Integumentary Integumentary: Denies rash or wounds Neurologic Neurologic: Denies focal weakness, numbness or tingling Psychiatric Psychiatric: Reports auditory hallucinations; Denies anxiety, depression, homicidal ideation or suicidal ideation Vital Signs Vital Signs Vital Signs: 05/09/21 13:51 05/09/21 16:21 05/09/21 16:50 Temperature 97.1 F L Temperature Source Temporal Pulse Rate 104 H Pulse Rhythm Irregular Pulse Strength Normal (2+) Respiratory Rate 20 H Respiratory Effort Normal Non-Labored Respiratory Depth Normal Respiratory Pattern Normal Blood Pressure 180/85 H Blood Pressure Mean 116 Blood Pressure Source Monitor Blood Pressure Position Sitting Blood Pressure Location Right Arm Pulse Ox 98 93 Oxygen Delivery Method Nasal Cannula Oxygen Flow Rate (L/min) 2 3 3 Weight Weight: 100.471 kg Body Mass Index (BMI) 41.8 Physical Exam Const alert and oriented x3 General Appearance: cooperative HEENT normocephalic Eyes PERRL and EOMs intact bilaterally Neck supple, no JVD and no carotid bruits Resp normal respiratory effort, normal air movement and clear to auscultation bilaterally Cardio regular rate and regular rhythm GI normal to inspection, nondistended, normoactive bowel sounds, non-tender and non-distended Extremity normal capillary refill General Extremity: Negative for edema Skin no rashes or lesions noted General Skin Exam: no breakdown Psych affect normal Appearance: appropriate Assessment & Plan Assessment/Plan (1) Debility: (2) Shortness of breath: (3) Chest pain: (4) COPD exacerbation: (5) Acute kidney injury: (6) Hyperkalemia: (7) NSTEMI (non-ST elevated myocardial infarction): (8) COPD (chronic obstructive pulmonary disease): (9) Stroke: (10) Expressive aphasia: (11) Coronary artery disease: (12) Hypertension: (13) Hyperlipidemia: (14) Insomnia: (15) Allergic rhinitis: (16) Anxiety: PLAN: 70 year old female with below past medical history significant for recent NSTEMI, hospitalized for acute respiratory failure with hypoxia secondary to COPD exacerbation, complicated by acute kidney injury, hyperkalemia, admitted to TCU with debility, here for rehabilitation, strengthening, prior to discharge home with family. * Debility - PT/OT. * Dysphagia - ST. * Pain - Tylenol 1000MG Q6H PRN pain (1-10). * Bowel Miralax 17GM daily, Senna/colace 1 tablet BID. * Adult immunization - Administer Prevnar 13, Pneumovax 23, Fluzone, COVID19 vaccine as appropriate. * DVT prophylaxis - Not necessary, already anticoagulated. * COPD - Budesonide 0.5MG inhaled BID, Albuterol 2.5MG Q6H, Prednisone taper. * Coronary Artery Disease - Coreg 6.25MG BID, Lisinopril 10MG daily, Isosorbide 30MG QHS, Plavix 75MG daily, Aspirin 81MG daily, Warfarin. * Hyperlipidemia - Atorvastatin 20MG QHS. * Anxiety - Buspar 7.5MG BID, stable chronic care home use, GDR not recommended. * Nutrition - Ensure Enlive 120ML 4x/day. * Chronic systolic congestive heart failure - Coreg 6.25MG BID, Lisinopril 10MG daily, Isosorbide 30MG QHS, Lasix 40MG BID. * Skin irritation - Calmoseptine topical BID. * Allergic Rhinitis - Singulair 10MG daily. * Tinea Corporis - Nystatin powder topical BID. * Insomnia - Trazodone 100MG QHS PRN, stable chronic care home use, GDR not recommended. * Stroke - Warfarin 5MG 6 days/week, 2MG 1 day/week, monitor INR.
[2021-05-10] VITALS (8 sets, daily range): BP systolic 98–169; BP diastolic 53–71; PULSE 68–110; RESP 20–28; TEMP 36.1–36.2; O2SAT 94–99
[2021-05-10] MEDS: busPIRone 15 MG TABLET 7.5 MG PO ×2 (05:26→17:54)
[2021-05-10] MEDS: Clopidogrel Bisulfate 75 MG Tablet PO (05:26)
[2021-05-10] MEDS: Senna/Docusate Sodium 1 Tablet PO ×2 (05:26→17:53)
[2021-05-10] MEDS: Montelukast 10 MG Tablet PO (05:26)
[2021-05-10] MEDS: Lisinopril 10 MG Tablet PO (05:30)
[2021-05-10] MEDS: 0.9% Saline Lock 10 ML Syringe IV ×2 (05:31→11:17)
[2021-05-10] MEDS: Menthol/Lanolin/Calamine/Znox 113 GM Tube 1 APPLIC TOPICAL ×2 (05:32→23:33)
[2021-05-10] MEDS: Nystatin Powder 15gm Bottle 1 APPLIC TOPICAL ×2 (05:32→23:33)
[2021-05-10 05:36] LABS: Absolute Neutrophil Count 15.5 X10^3/uL (2.0-7.7); Basophil# 0.04 X10^3/uL; Basophil% 0.2 % (0-1); Hemoglobin 9.5 g/dL (12.0-15.0); Lymphocyte % 14.3 % (19-41); Mean Corp Hgb Conc 30.6 g/dL (32-36); Mean Corpuscular Hgb 27.5 pg (27.0-32.0); Mean Corpuscular Volume 89.9 fL (81-99); Mean Platelet Vol. 9.8 fl (6.2-12.0); Monocyte# 2.17 X10^3/uL; Monocyte% 10.3 % (0-10); NRBC Flagged by Analyzer 0.5 % (0-5); Neutrophil # 15.52 X10^3/uL (2.7-7.7); Neutrophil % 73.9 % (47-70); POSITIVE DIFFERENTIAL YES; Platelet Count 408 K/mm3 (150-450); RBC Distribution Width CV 13.9 % (11.6-14.6); RBC Distribution Width SD 45.3 fl (35.1-43.9); Red Blood Count 3.45 M/mm3 (4.2-5.4)
[2021-05-10 05:58] LABS: Anion Gap 5 (5-15); BUN 50 mg/dL (7-18); BUN/Creat Ratio 50.7 RATIO (10-20); Calcium,Total 9.8 mg/dL (8.5-10.1); Chloride 99 mmol/L (98-107); Creatinine, Serum 0.99 mg/dL (0.55-1.02); EST Glomerular Filtration Rate 59 mL/min (>60); Est Glom Filt Rate - Afr Amer 71 mL/min (>60); Estimated Creatinine Clearance 39.33 ml/min; Glucose 117 mg/dL (74-106); Potassium 4.5 mmol/L (3.5-5.1); Sodium Level 138 mmol/L (136-145)
[2021-05-10 06:00] LABS: Differential Indicated SCAN CRITERIA MET
[2021-05-10 06:01] LABS: Differential Comment SCANNED
[2021-05-10] MEDS: Budesonide Respules 0.5 MG/2 ML AMPUL.NEB. INHALATION ×2 (07:20→18:57)
[2021-05-10] MEDS: Albuterol 2.5 MG/3 ML VIAL.NEB. INHALATION ×3 (07:20→18:57)
[2021-05-10] MEDS: Carvedilol 6.25 MG Tablet PO ×2 (09:30→17:54)
[2021-05-10] MEDS: Furosemide 40 MG Tablet PO ×2 (09:30→17:54)
[2021-05-10] MEDS: Aspirin E.C. 81 MG Tablet PO (09:30)
[2021-05-10] MEDS: predniSONE 20 MG Tablet PO (09:31)
[2021-05-10 12:11] LABS: Pathologist Review Reviewed
--- NOTE | 2021-05-10 12:35 | NURSING ---
Addendum entered by Vickie Massey 05/10/21 13:10: Dr. Chao updated new order for Lorazepam 0.5 mg q4hr prn for anxiety. Original Note: This nurse called to pt's room d/t pt feeling anxious and sob. Spo2 95% 3L auditory wheezing was noted. Respiratory called to come and do schedule breathing treatment. This stayed with patient and did 1:1 and back rub which was min effective. Will update Dr. Chao.
--- NOTE | 2021-05-10 13:51 | PHA.CONS_ITS ---
Progress Note - Pharmacy Subjective: TCU ADMISSION Objective: Allergies contact metal agent Allergy (Verified 05/07/21 04:54) Rash Current Medications Generic Name Dose Route Start Last Admin Trade Name Eugenie PRN Reason Stop Dose Admin Acetaminophen 1,000 mg 05/09/21 20:30 Acetaminophen 500 Mg Tablet PO Q6H PRN PRN Pain Score 1-10 Albuterol Sulfate 2.5 mg 05/09/21 14:30 05/10/21 12:46 Albuterol 2.5 Mg/3 Ml Vial.Neb. INHALATION 2.5 mg Q6H.RT HARJIT Administration Aspirin 81 mg 05/10/21 08:00 05/10/21 09:30 Aspirin E.C. 81 Mg Tablet PO 81 mg DAILYCM HARJIT Administration Atorvastatin Calcium 20 mg 05/09/21 22:00 05/09/21 20:09 Atorvastatin Calcium 20 Mg Tablet PO 20 mg QHS HARJIT Administration Budesonide 0.5 mg 05/09/21 18:00 05/10/21 07:20 Budesonide Respules 0.5 Mg/2 Ml Ampul.Neb. INHALATION 0.5 mg BID.RT HARJIT Administration Buspirone HCl 7.5 mg 05/09/21 18:00 05/10/21 05:26 Buspirone 15 Mg Tablet PO 7.5 mg BID HARJIT Administration Calamine/Phenol 1 applic 05/09/21 18:00 05/10/21 05:32 Menthol/Lanolin/Calamine/Znox 113 Gm Tube TOPICAL 1 applic BID HARJIT Administration Protocol Carvedilol 6.25 mg 05/09/21 17:00 05/10/21 09:30 Carvedilol 6.25 Mg Tablet PO 6.25 mg BID HARJIT Administration Clopidogrel Bisulfate 75 mg 05/10/21 06:00 05/10/21 05:26 Clopidogrel Bisulfate 75 Mg Tablet PO 75 mg DAILY HARJIT Administration Furosemide 40 mg 05/09/21 17:00 05/10/21 09:30 Furosemide 40 Mg Tablet PO 40 mg BIDCM HARJIT Administration Isosorbide Mononitrate 30 mg 05/09/21 22:00 05/09/21 20:09 Isosorbide Mononitrate 30 Mg Tablet PO 30 mg QHS HARJIT Administration Lisinopril 20 mg 05/10/21 18:00 Lisinopril 20 Mg Tablet PO BID HARJIT Lorazepam 0.5 mg 05/10/21 13:04 Lorazepam 0.5 Mg Tablet PO Q4H PRN PRN ANXIETY Montelukast Sodium 10 mg 05/10/21 06:00 05/10/21 05:26 Montelukast 10 Mg Tablet PO 10 mg DAILY HARJIT Administration Nystatin 1 applic 05/09/21 18:00 05/10/21 05:32 Nystatin Powder 15gm Bottle TOPICAL 1 applic BID HARJIT Administration Protocol Polyethylene Glycol 17 gm 05/10/21 06:00 05/10/21 05:26 Polyethylene Glycol 3350 17 Gm Packet PO Not Given DAILY HARJIT Prednisone 40 mg 05/10/21 08:00 05/10/21 09:31 Prednisone 20 Mg Tablet PO 05/22/21 07:59 40 mg DAILY@0800 HARJIT Administration Taper Senna/Docusate Sodium 1 tablet 05/09/21 18:00 05/10/21 05:26 Senna/Docusate Sodium 1 Tablet PO 1 tablet BID HARJIT Administration Sodium Chloride 10 - 40 ml 05/09/21 14:42 05/10/21 11:17 0.9% Saline Lock 10 Ml Syringe IV 10 ml UD PRN Administration SALINE FLUSH Sodium Chloride 10 - 40 ml 05/09/21 20:19 0.9% Saline Lock 10 Ml Syringe IV UD PRN SALINE FLUSH Trazodone HCl 100 mg 05/09/21 14:26 Trazodone 100 Mg Tablet PO QHS PRN sleep Warfarin Sodium 2 mg 05/09/21 17:00 05/09/21 16:22 Jantoven 2 Mg Tablet PO 2 mg WE HARJIT Administration Warfarin Sodium 5 mg 05/10/21 17:00 Warfarin 5 Mg Tablet [facility] Problem List (Last Reviewed 05/09/21 @ 20:[address] Peewee Chao MD) Anxiety (Acute) Allergic rhinitis (Acute) Insomnia (Acute) Hyperlipidemia (Acute) Hypertension (Chronic) Coronary artery disease (Acute) Expressive aphasia (Acute) Stroke (Acute) COPD (chronic obstructive pulmonary disease) (Chronic) NSTEMI (non-ST elevated myocardial infarction) (Acute) Hyperkalemia (Acute) Acute kidney injury (Acute) COPD exacerbation (Chronic) Chest pain (Acute) Shortness of breath (Acute) Debility (Acute) Vital Signs Temp Pulse Resp BP Pulse Ox 97.1 F L 110 H 28 H 102/54 L 96 05/10/21 05:00 05/10/21 12:46 05/10/21 12:46 05/10/21 09:30 05/10/21 07:20 Oxygen Flow Rate (L/min) 3 Oxygen Delivery Method Nasal Cannula Weight: 100.471 kg Body Mass Index (BMI) 41.8 Sodium 138 mmol/L (136-145) 05/10/21 05:15 Potassium 4.5 mmol/L (3.5-5.1) 05/10/21 05:15 Chloride 99 mmol/L (98-107) 05/10/21 05:15 Carbon Dioxide 34.0 mmol/L (21.0-32.0) H 05/10/21 05:15 Anion Gap 5 (5-15) 05/10/21 05:15 BUN 50 mg/dL (7-18) H 05/10/21 05:15 Creatinine 0.99 mg/dL (0.55-1.02) 05/10/21 05:15 Est GFR (MDRD) Af Amer 71 mL/min (>60) 05/10/21 05:15 Est GFR (MDRD) Non-Af 59 mL/min (>60) L 05/10/21 05:15 BUN/Creatinine Ratio 50.7 RATIO (10-20) H 05/10/21 05:15 Glucose 117 mg/dL (74-106) H 05/10/21 05:15 Assessment/Plan: 1. Tylenol 1,000mg PO Q6h PRN Pain 1-10. Please continue to monitor for increased/decreased S/S pain, PRN medication usage. 2. CAD/CHF: Aspirin 81mg PO Daily, Lipitor 20mg PO QHS, Coreg 6.25mg PO BID, Plavix 75mg PO Daily, Lasix 40mg PO BID, Imdur 30mg PO QHS, Lisinopril 20mg PO Daily. Please continue to monitor BP, pulse, I/O, S/S bleeding or bruising, electrolytes, lipid panel annually or sooner if clinically indicated. 3. Stroke: Warfarin 2mg PO Friday and 5mg AOD. Please continue to monitor INR (last 1.9 on 05/09), S/S bleeding/bruising, S/S recurrent stroke. 4. COPD: Prednisone taper thru 05/22/21, Pulmicort inhalation BID, Albuterol inhalation Q6h. Please continue to monitor for S/S COPD exacerbations, N/V, BG (last 117), insomnia; especially while on prednisone taper. 5. Allergic Rhinitis: Singulair 10mg PO daily. Please continue to monitor for improvement in allergy symptoms. Psychotropic Medications: 6. Anxiety: Buspar 7.5mg PO BID, Ativan 0.5mg PO Q4h PRN. Please continue to monitor for improvement in symptoms, PRN usage. See note in H/P regarding GDR, thanks. 7. Insomnia: Trazodone 100mg PO QHS PRN. Please continue to monitor for medicat ion effectiveness, PRN usage. See note in H/P regarding GDR recommendation, thank you. Unnecessary Medications: None Bowel Regimen: Miralax 17g PO Daily, Senna/Docusate 1 tab PO BID. Please continue to monitor for increased/decreased constipation and/or diarrhea. Date of Note:: 05/10/21
[2021-05-10] MEDS: LORazepam 0.5 MG Tablet PO (13:59)
--- NOTE | 2021-05-10 14:36 | CASEMGMT ---
Social Work Met with pt for assessment. Pt completed MOLST during stay earlier in May and per pt, there are no changes to this form. Pt is current with [facility]. SW explained [place] medicare coverage with NRD of 05/14 and that continued stay is not gaurenteed. Pt lives at home with her sister who assists and pt plans to return home with sister. SW will follow for d/c planning and support. HAWK Contreras
--- NOTE | 2021-05-10 15:35 | NURSING ---
SALINE LOCK IN TAC AND FLUSHED. PT TOLERATED WELL.
[2021-05-10 15:44] LABS: International Normalized Ratio 2.3; Prothrombin Time (Protime)PT. 24.3 SECONDS (11.7-14.9)
[2021-05-10] MEDS: Lisinopril 20 MG Tablet PO (17:55)
--- NOTE | 2021-05-10 22:12 | HP.PCM_ITS ---
HPI - General General Date of Admission: 05/09/21 HPI Narrative 05/09/2021 DEDRICK BUSTILLO, is a 70 Female who presents to [facility] for left total hip replacement. 05/09/2021 Dr. Marie performed left minimally invasive direct anterior hip replacement 05/09/2021 Metoprolol, Xarelto for atrial fibrillation. 05/09/2021 Pain controlled, lightheaded with therapy. PT/OT recommends [facility]. High risk if directly discharged home, patient bipolar, lives alone. 05/10/2021 Admit to TCU with debility, here for rehabiltation, strengthening, prior to discharge home alone. FORMERLY [facility], [facility] Medical History (Updated 05/10/21 @ 22:[address] Peewee Chao MD) Ataxia Atherosclerotic heart disease of [place] coronary artery without angina pectoris Chronic bronchitis COPD (chronic obstructive pulmonary disease) Dysphasia Essential hypertension Former smoker History of CVA (cerebrovascular accident) History of successful cardiopulmonary resuscitation Insomnia Lymphedema Obesity Home Medications aspirin 81 mg tablet,delayed release 81 mg PO QDAY 03/25/18 [History Last Taken 05/06/21] trazodone 100 mg tablet 100 mg PO QHS PRN #30 tablet 02/21/21 [Rx Last Taken 05/06/21] buspirone 7.5 mg PO BID 05/02/21 [History Last Taken 05/06/21] carvedilol [Coreg] 6.25 mg PO BIDCM 05/02/21 [History Last Taken 05/06/21] clopidogrel 75 mg PO DAILY 05/02/21 [History Last Taken 05/06/21] furosemide [Lasix] 40 mg PO BIDCM 05/02/21 [History Last Taken 05/06/21] isosorbide mononitrate 30 mg PO QHS 05/02/21 [History Last Taken 05/06/21] lisinopril 10 mg PO QDAY 05/02/21 [History Last Taken 05/06/21] montelukast 10 mg PO DAILY 05/02/21 [History Last Taken 05/06/21] warfarin 2 mg PO WE 05/02/21 [History Last Taken 05/02/21] warfarin 5 mg PO SUMOTUTHFRSA 05/02/21 [History Last Taken 05/06/21] Ensure 120 ml PO 4X/DAY 05/07/21 [History Last Taken 05/06/21] albuterol sulfate 2.5 mg INHALATION Q6H 05/07/21 [History Last Taken 05/06/21] atorvastatin [Lipitor] 20 mg PO QHS 05/07/21 [History Last Taken 05/06/21] budesonide [Pulmicort] 0.5 mg INHALATION BID 05/07/21 [History Last Taken 05/06/21] home oxygen 05/07/21 [History Last Taken Unknown] nebulizer 05/07/21 [History Last Taken Unknown] polyethylene glycol 3350 [Miralax] 17 g PO DAILY 05/07/21 [History Last Taken 05/06/21] sennosides-docusate sodium [Senokot-S] 1 tab-cap PO BID 05/07/21 [History Last Taken 05/06/21] prednisone 40 mg PO DAILY 05/09/21 [History Last Taken Unknown] Allergy/AdvReac Type Severity Reaction Status Date / Time contact metal agent Allergy Rash Verified 05/07/21 04:54 Family History Brother Heart disease Father Cancer Grandfather Cancer Sister Diabetes Surgical History (Updated 05/10/21 @ 22:[address] Peewee Chao MD) History of appendectomy History of left heart catheterization (05/01/21) History of tonsillectomy History of total left hip replacement Social History household members: family Smoking Status: Former smoker quit date: 12/01/19 pack-years: 55 alcohol intake: never substance use type: does not use what type of physical activity do you participate in: none Vital Signs Vital Signs Vital Signs: 05/10/21 05:00 05/10/21 07:20 05/10/21 07:35 Temperature 97.1 F L Temperature Source Temporal Pulse Rate 96 102 H Respiratory Rate 20 H 26 H Respiratory Pattern Tachypnea Blood Pressure 169/71 H Blood Pressure Mean 103 Blood Pressure Source Blood Pressure Position Blood Pressure Location Pulse Ox 99 96 Oxygen Delivery Method Nasal Cannula Nasal Cannula Oxygen Flow Rate (L/min) 3 3 3 05/10/21 09:30 05/10/21 12:46 05/10/21 14:05 Temperature 97.0 F L Temperature Source Temporal Pulse Rate 96 110 H 105 H Respiratory Rate 28 H 20 H Respiratory Pattern Tachypnea Blood Pressure 102/54 L 98/62 Blood Pressure Mean 70 74 Blood Pressure Source Monitor Monitor Blood Pressure Position Semi-Fowlers Sitting Blood Pressure Location Right Forearm Left Arm Pulse Ox 94 Oxygen Delivery Method Room Air Oxygen Flow Rate (L/min) 3 05/10/21 18:01 05/10/21 18:57 Temperature Temperature Source Pulse Rate 105 H 109 H Respiratory Rate 24 H Respiratory Pattern Tachypnea Blood Pressure 134/53 H Blood Pressure Mean 80 Blood Pressure Source Monitor Blood Pressure Position Sitting Blood Pressure Location Right Arm Pulse Ox Oxygen Delivery Method Oxygen Flow Rate (L/min) Weight Weight: 100.471 kg Body Mass Index (BMI) 41.8 Results Lab / Micro Data Result Diagrams: 05/10/21 05:15 05/10/21 05:15 Labs: Laboratory Results - last 24 hr 05/10/21 05/10/21 05/10/21 05:15 05:15 14:54 WBC 21.0 H RBC 3.45 L Hgb 9.5 L Hct 31.0 L MCV 89.9 MCH 27.5 MCHC 30.6 L RDW Std Deviation 45.3 H RDW Coeff of [place] 13.9 Plt Count 408 MPV 9.8 Immature Gran % (Auto) 1.300 H Neut % (Auto) 73.9 H Lymph % (Auto) 14.3 L [place] % (Auto) 10.3 H Eos % (Auto) 0.0 Baso % (Auto) 0.2 Absolute Neuts (auto) 15.5 H Absolute Lymphs (auto) 3.00 Nucleated RBC % 0.5 Differential Comment SCANNED Diff Path Review Reviewed PT 24.3 H INR 2.3 Sodium 138 Potassium 4.5 Chloride 99 Carbon Dioxide 34.0 H Anion Gap 5 BUN 50 H Creatinine 0.99 Estim Creat Clear Calc 39.33 Est GFR (MDRD) Af Amer 71 Est GFR (MDRD) Non-Af 59 L BUN/Creatinine Ratio 50.7 H Glucose 117 H Calcium 9.8 Assessment & Plan Assessment/Plan (1) Debility: (2) Osteoarthritis of left hip: (3) Hypertension: (4) Depression: (5) Bipolar disorder: (6) Osteopenia: (7) Atrial fibrillation: PLAN: 70 year old female with below past medical history hospitalized for left total hip replacement 05/09/[address] Marie, admitted to TCU with debility, here for rehabilitation, strengthening, prior to discharge home alone. *
[2021-05-10] MEDS: Atorvastatin Calcium 20 MG Tablet PO (23:34)
[2021-05-10] MEDS: Isosorbide Mononitrate 30 MG Tablet PO (23:37)
[2021-05-11] VITALS (7 sets, daily range): BP systolic 90–104; BP diastolic 37–75; PULSE 77–110; RESP 12–32; TEMP 36.3; O2SAT 90–99
[2021-05-11] MEDS: Montelukast 10 MG Tablet PO (05:40)
[2021-05-11] MEDS: Clopidogrel Bisulfate 75 MG Tablet PO (05:40)
[2021-05-11] MEDS: Lisinopril 20 MG Tablet PO ×2 (05:40→17:33)
[2021-05-11] MEDS: busPIRone 15 MG TABLET 7.5 MG PO ×2 (05:40→17:32)
[2021-05-11] MEDS: Senna/Docusate Sodium 1 Tablet PO ×2 (05:40→17:33)
[2021-05-11] MEDS: Nystatin Powder 15gm Bottle 1 APPLIC TOPICAL ×2 (05:43→17:35)
[2021-05-11] MEDS: Menthol/Lanolin/Calamine/Znox 113 GM Tube 1 APPLIC TOPICAL ×2 (05:43→17:35)
[2021-05-11] MEDS: Budesonide Respules 0.5 MG/2 ML AMPUL.NEB. INHALATION ×2 (06:45→19:40)
[2021-05-11] MEDS: Albuterol 2.5 MG/3 ML VIAL.NEB. INHALATION ×2 (06:45→12:58)
[2021-05-11] MEDS: Aspirin E.C. 81 MG Tablet PO (09:03)
[2021-05-11] MEDS: predniSONE 20 MG Tablet PO (09:03)
[2021-05-11] MEDS: Furosemide 40 MG Tablet PO ×2 (09:03→17:32)
[2021-05-11] MEDS: Carvedilol 6.25 MG Tablet PO ×2 (09:03→17:32)
[2021-05-11] MEDS: LORazepam 0.5 MG Tablet PO ×2 (12:48→21:31)
[2021-05-11] MEDS: 0.9% Saline Lock 10 ML Syringe IV (14:52)
--- NOTE | 2021-05-11 14:56 | NURSING ---
Saline lock flushed and observed to be leaking, saline lock discontinued at this time, pt denies pain, tolerated well, catheter tip intact
--- NOTE | 2021-05-11 15:32 | PN.PALL_ITS ---
Subjective Subjective Nursing reports patient was just given a 0.5 mg p.o. dose of Ativan due to panic attack. She also had 1 when she initially arrived to TCU. Upon exam, patient is lethargic but arousable, it is difficult for her to stay awake. She has prolonged expiratory phase of breathing. She is on 3 L of O2 per nasal cannula. States she was short of breath and anxious. Denies any pain. Denies any nausea or vomiting. Objective Data Objective Data Vital Signs: Vital Signs Temp Pulse Resp BP Pulse Ox 97.3 F L 93 32 H 90/37 L 94 05/11/21 14:13 05/11/21 14:54 05/11/21 14:54 05/11/21 14:13 05/11/21 14:13 Oxygen Flow Rate (L/min) 3 Oxygen Delivery Method Nasal Cannula Weight: 100.471 kg Body Mass Index (BMI) 41.8 Intake & Output: Intake and Output for Last 24 Hours 05/09/21 05/10/21 05/11/21 23:59 23:59 23:59 Intake Total 240 / 240 240 / 240 600 / 600 Balance 240 / 240 240 / 240 600 / 600 Lab / Micro Data Result Diagrams: 05/10/21 05:15 05/10/21 05:15 Labs: Laboratory Results - last 24 hr 05/10/21 14:54 PT 24.3 H INR 2.3 Assessment & Plan Assessment/Plan (1) Debility: (2) Weakness: (3) Shortness of breath: (4) Anxiety: (5) Insomnia: QUALIFIERS: Insomnia type: primary Qualified Code(s): F51.01 - Primary insomnia (6) COPD (chronic obstructive pulmonary disease): QUALIFIERS: COPD type: unspecified COPD Qualified Code(s): J44.9 - Chronic obstructive pulmonary disease, unspecified (7) Morbid obesity with BMI of 40.0-44.9, adult: (8) Coronary artery disease: QUALIFIERS: Associated angina: without angina Coronary Disease- Associated Artery/Lesion type: [place] artery [place] vs. transplanted heart: [place] heart Qualified Code(s): I25.10 - Atherosclerotic heart disease of [place] coronary artery without angina pectoris (9) Depression: QUALIFIERS: Depression Type: unspecified Qualified Code(s): F32.9 - Major depressive disorder, single episode, unspecified (10) Osteoarthritis of left hip: QUALIFIERS: Osteoarthritis type: primary Qualified Code(s): M16.12 - Unilateral primary osteoarthritis, left hip (11) Bipolar disorder: QUALIFIERS: Active/Remission status: remission status unspecified Qualified Code(s): F31.9 - Bipolar disorder, unspecified (12) Osteopenia: QUALIFIERS: Osteopenia location: unspecified Qualified Code(s): M85.80 - Other specified disorders of bone density and structure, unspecified site (13) Atrial fibrillation: QUALIFIERS: Atrial fibrillation type: unspecified Qualified Code(s): I48.91 - Unspecified atrial fibrillation (14) Hypertension: QUALIFIERS: Hypertension type: unspecified Qualified Code(s): I10 - Essential (primary) hypertension (15) Hyperlipidemia: QUALIFIERS: Hyperlipidemia type: unspecified Qualified Code(s): E78.5 - Hyperlipidemia, unspecified PLAN: 70-year-old female being seen today for f/u palliative care visit due to debility and weakness. She was readmitted to the hospital for DANIELLE after her initial consult 05/02. Weakness progressive over last 6 months. Recent non- STEMI and acute cystitis, as well as acute CHF and hypoxic respiratory failure. Back in TCU for further rehab. 1. Anxiety: Suspect related to her SOB & CAD. She is on buspirone 7.5 mg BID, Ativan 0.5 mg p.o. q4h PRN. We will increase buspirone to 7.5mg TID 05/11, f/u next week. 2. Debility and weakness: Again, has been progressive over the past 6 months. She will require ongoing therapy, unclear if she will be able to be discharged home with her sister or require ECF. 3. Shortness of breath: Multifactorial given her acute on chronic CHF and now NSTEMI. SOB contributory to debility and anxiety, Unable to take more than few steps without significant dyspnea at baseline. No current changes recommended, would first control underlying conditions and may consider pharmacologica l/opioid management in the future if dyspnea remains significant. 4. Multivessel coronary artery disease: Cardiology recommends conservative management 5. History of CVA/hypertension/lymphedema/morbid obesity/insomnia: Complicates overall care, management, recovery and prognosis. Managed per PCP and specialist. Thank you for the opportunity to participate in this patient's care, please do n ot hesitate to contact [facility] with any further questions or concerns. Palliative direct line is [phone]. Patient is currently enrolled in palliative care. Greater than 50% of F2F visit dedicated to education and counseling of palliative care services, medications, comorbid conditions and potential assistance with management, and plan of care moving forward. Start time: 1540 End time: 1606
[2021-05-11] MEDS: Atorvastatin Calcium 20 MG Tablet PO (21:27)
[2021-05-11] MEDS: Isosorbide Mononitrate 30 MG Tablet PO (21:27)
[2021-05-12] VITALS (8 sets, daily range): BP systolic 95–106; BP diastolic 37–41; PULSE 78–96; RESP 12–30; TEMP 36.2–36.7; O2SAT 92–100
[2021-05-12] MEDS: Albuterol 2.5 MG/3 ML VIAL.NEB. INHALATION ×3 (01:41→18:46)
[2021-05-12] MEDS: Lisinopril 20 MG Tablet PO ×2 (06:13→17:35)
[2021-05-12] MEDS: busPIRone 15 MG TABLET 7.5 MG PO ×2 (06:13→17:35)
[2021-05-12] MEDS: Montelukast 10 MG Tablet PO (06:13)
[2021-05-12] MEDS: Senna/Docusate Sodium 1 Tablet PO ×2 (06:13→17:35)
[2021-05-12] MEDS: Nystatin Powder 15gm Bottle 1 APPLIC TOPICAL ×2 (06:14→17:36)
[2021-05-12] MEDS: Clopidogrel Bisulfate 75 MG Tablet PO (06:14)
[2021-05-12] MEDS: Polyethylene Glycol 3350 17 GM PACKET PO (06:15)
[2021-05-12] MEDS: Menthol/Lanolin/Calamine/Znox 113 GM Tube 1 APPLIC TOPICAL ×2 (06:15→17:36)
[2021-05-12] MEDS: LORazepam 0.5 MG Tablet PO (06:16)
[2021-05-12] MEDS: Carvedilol 6.25 MG Tablet PO ×2 (08:48→17:35)
[2021-05-12] MEDS: Furosemide 40 MG Tablet PO ×2 (08:48→17:35)
[2021-05-12] MEDS: Aspirin E.C. 81 MG Tablet PO (08:48)
[2021-05-12] MEDS: predniSONE 20 MG Tablet PO (08:48)
[2021-05-12] MEDS: Budesonide Respules 0.5 MG/2 ML AMPUL.NEB. INHALATION (18:47)
[2021-05-12] MEDS: Isosorbide Mononitrate 30 MG Tablet PO (19:54)
[2021-05-12] MEDS: Atorvastatin Calcium 20 MG Tablet PO (19:54)
[2021-05-12] MEDS: Acetaminophen 500 MG Tablet 1000 MG PO (20:01)
[2021-05-12] MEDS: traZODone 100 MG Tablet PO (21:40)
[2021-05-13] VITALS (7 sets, daily range): BP systolic 99–129; BP diastolic 44–97; PULSE 77–96; RESP 12–28; TEMP 35.8–36.7; O2SAT 95–100
--- NOTE | 2021-05-13 03:31 | NURSING ---
pt found sitting on the edge of the bed and had bi-pap off looking for O2. pt was noted to be saturated with urine requiring bed linens to be changed and pt to be cleaned up. pt ambulated to the br with staff and was cleaned up while bed linens were changed by the rn. pt had a purewick and there was urine in the canister. after cleaning pt and changing bed linens pt returned to bed and clean purewick inserted, staff asked pt is she noted it was not working to put on her call light pt acknowledged.
--- NOTE | 2021-05-13 03:45 | NURSING ---
Alarm on BiPAP sounds. Pt removed mask and is sitting on edge of bed. Requests O2 and to go to the bathroom. Assisted applying O2 via nc. Pt stands and saturated brief falls to the floor. Attempts to give saturated purewick to this nurse. No urine in canister even though suction appears turned on. Large amount of urine on all linens. Complete bed change done. Voids small amount of urine in toilet. Pericare, calmoseptine applied, and new brief applied per CYNTHIA Stack. Seda assisted pt back to bed.
[2021-05-13] MEDS: busPIRone 15 MG TABLET 7.5 MG PO ×2 (06:18→16:18)
[2021-05-13] MEDS: Senna/Docusate Sodium 1 Tablet PO ×2 (06:18→16:18)
[2021-05-13] MEDS: Clopidogrel Bisulfate 75 MG Tablet PO (06:18)
[2021-05-13] MEDS: Polyethylene Glycol 3350 17 GM PACKET PO (06:18)
[2021-05-13] MEDS: Montelukast 10 MG Tablet PO (06:18)
[2021-05-13] MEDS: Lisinopril 20 MG Tablet PO ×2 (06:18→16:18)
[2021-05-13] MEDS: Menthol/Lanolin/Calamine/Znox 113 GM Tube 1 APPLIC TOPICAL ×2 (06:22→18:24)
[2021-05-13] MEDS: Nystatin Powder 15gm Bottle 1 APPLIC TOPICAL ×2 (06:23→18:24)
[2021-05-13] MEDS: Albuterol 2.5 MG/3 ML VIAL.NEB. INHALATION ×3 (07:28→19:10)
[2021-05-13] MEDS: Aspirin E.C. 81 MG Tablet PO (08:56)
[2021-05-13] MEDS: Carvedilol 6.25 MG Tablet PO ×2 (08:56→16:18)
[2021-05-13] MEDS: Furosemide 40 MG Tablet PO ×2 (08:56→16:18)
[2021-05-13] MEDS: predniSONE 20 MG Tablet PO (08:56)
[2021-05-13] MEDS: Acetaminophen 500 MG Tablet 1000 MG PO ×2 (08:58→16:17)
[2021-05-13] MEDS: Budesonide Respules 0.5 MG/2 ML AMPUL.NEB. INHALATION ×2 (13:22→19:10)
[2021-05-13] MEDS: Atorvastatin Calcium 20 MG Tablet PO (20:42)
[2021-05-13] MEDS: traZODone 100 MG Tablet PO (20:42)
[2021-05-13] MEDS: Isosorbide Mononitrate 30 MG Tablet PO (20:42)
[2021-05-14] VITALS (9 sets, daily range): BP systolic 82–127; BP diastolic 33–73; PULSE 76–97; RESP 12–24; TEMP 36.2–36.6; O2SAT 92–100
[2021-05-14] MEDS: Lisinopril 20 MG Tablet PO (05:14)
[2021-05-14] MEDS: Montelukast 10 MG Tablet PO (05:14)
[2021-05-14] MEDS: Polyethylene Glycol 3350 17 GM PACKET PO (05:14)
[2021-05-14] MEDS: Clopidogrel Bisulfate 75 MG Tablet PO (05:14)
[2021-05-14] MEDS: Acetaminophen 500 MG Tablet 1000 MG PO ×2 (05:14→22:14)
[2021-05-14] MEDS: busPIRone 15 MG TABLET 7.5 MG PO ×2 (05:15→17:49)
[2021-05-14] MEDS: Nystatin Powder 15gm Bottle 1 APPLIC TOPICAL ×2 (05:16→17:53)
[2021-05-14] MEDS: Menthol/Lanolin/Calamine/Znox 113 GM Tube 1 APPLIC TOPICAL ×2 (05:16→17:52)
[2021-05-14] MEDS: Senna/Docusate Sodium 1 Tablet PO ×2 (05:18→17:50)
[2021-05-14 06:12] LABS: Prothrombin Time (Protime)PT. 43.5 SECONDS (11.7-14.9)
[2021-05-14 06:17] LABS: International Normalized Ratio 4.7
--- NOTE | 2021-05-14 06:19 | NURSING ---
Lab called with critical. Patients INR is 4.7. RN aware
[2021-05-14] MEDS: Furosemide 40 MG Tablet PO ×2 (07:41→18:58)
[2021-05-14] MEDS: Carvedilol 6.25 MG Tablet PO (07:41)
[2021-05-14] MEDS: Aspirin E.C. 81 MG Tablet PO (07:41)
[2021-05-14] MEDS: predniSONE 20 MG Tablet PO (07:42)
--- NOTE | 2021-05-14 11:01 | NURSING ---
INR 4.7, Dr Chao notified, new order to dc warfarin and monitor INRs daily.
--- NOTE | 2021-05-14 14:04 | CASEMGMT ---
Social Work Brief interview for mental status (BIMS) and resident mood assessment (PHQ-9) completed on this day. BIMS score 07/15. PHQ-9 score 03/27. Homero ZIMMERMAN, DUSTINS
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
--- NOTE | 2021-05-14 19:54 | NURSING ---
Addendum entered by Janis Gifford 05/15/21 00:32: Patient resting in bed with eyes open. BiPap on. Tremors noted. Denies any needs at this time. Addendum entered by Janis Gifford 05/14/21 22:07: Urine obtained via straight cath using sterile technique. Patient tolerated well. Addendum entered by Janis Gifford 05/14/21 21:42: Patient returned from Radiology. agriscience technology instructor in room at this time. Addendum entered by Janis Gifford 05/14/21 21:29: Patient taken to radiology via wheelchair. Patient refusing to lay in bed for transport. Addendum entered by Janis Gifford 05/14/21 20:44: Respiratory in room doing breathing treatment. Key MCDANIEL also in assessing patient. Addendum entered by Janis Gifford 05/14/21 20:31: Respiratory came to this nurse and stated patient is refusing breathing treatments. During 1:1 with patient, patient agreed to do a breathing treatment. Respiratory called. Addendum entered by Janis Gifford 05/14/21 20:22: Patient ambulating self again. Appears to be more confused this shift. Very agitated with staff. 1:1 care given. Labored breathing noted. Patient has expressive aphasia from previous CVA. Vitals obtained. BP:99/07; P: 97; R:24; O2: 100% on 3 LPM nasal cannula. Lungs auscultated with rhonchi and expiratory wheezes; diminished throughout. RN aware. Original Note: Patient personal alarm sounding. Entered room and patient found ambulating without device to bed. Patient sat on bed. Patient kept saying, I'm done, I'm done. When asked patient if she had any pain or if she was having trouble breathing, patient responded with, I'm fine. Patient's Oxygen on via nasal cannula at 3 LPM. Patient sitting at bedside per request.
[2021-05-14] MEDS: Budesonide Respules 0.5 MG/2 ML AMPUL.NEB. INHALATION (20:35)
[2021-05-14] MEDS: Albuterol 2.5 MG/3 ML VIAL.NEB. INHALATION (20:35)
--- NOTE | 2021-05-14 20:55 | NURSING ---
Addendum entered by Key Mejia 05/15/21 00:53: notified of results, new orders. Original Note: Dr. Chao notified of pt condition, vitals, and assesment, new orders for cbc, bmp, ua, cxr, kub.
--- NOTE | 2021-05-14 21:30 | RAD_ITS ---
HISTORY: short of breath, wheezing EXAM: XR Chest 2 Views: COMPARISON: May 07, 2021 FINDINGS: # of images incl. paperwork: 3 Lungs are clear. Heart is not enlarged. No acute osseous pathology perceived. Pulmonary vascularity is distinct. No effusions. RAD/Chest PA and Lateral IMPRESSION: No acute cardiopulmonary disease. Levoscoliosis within the lower lumbar spine with dextroscoliosis within the thoracic spine is more prominent on today's study than before. Right paratracheal benign calcified lymph nodes. at 0021 Reported and signed by: Venancio Washburn MD Electronically Signed: Venancio Washburn MD at 0:20 EDT Tel , Service support ,
--- NOTE | 2021-05-14 21:30 | RAD_ITS ---
HISTORY: Shortness of breath. Wheezing. Exam is 2 views of the abdomen. Neither view demonstrates the abdomen incomplete Carver. The pelvis is excluded. Lung bases may demonstrate some minimal age-related airspace disease. Heart is not enlarged. No free air is perceived. Scoliosis. Bowel gas pattern is normal. RAD/Abdomen Single View IMPRESSION: Suboptimal exam due to patient positioning. No acute intra-abdominal disease perceived. at 0020 Reported and signed by: Venancio Washburn MD Electronically Signed: Venancio Washburn MD at 0:19 EDT Tel , Service support ,
[2021-05-14 21:53] LABS: Absolute Lymphocyte Count 1.34 X10^3/uL (0.83-4.51); Absolute Neutrophil Count 15.4 X10^3/uL (2.0-7.7); Basophil# 0.01 X10^3/uL; Basophil% 0.1 % (0-1); Eosinophil# 0.01 X10^3/uL; Eosinophils% 0.1 % (0-5); Hematocrit 24.3 % (37-47); Lymphocyte # 1.34 X10^3/ul (0.83-4.51); Lymphocyte % 7.6 % (19-41); Mean Corp Hgb Conc 28.8 g/dL (32-36); Mean Corpuscular Hgb 27.6 pg (27.0-32.0); Mean Corpuscular Volume 95.7 fL (81-99); Mean Platelet Vol. 9.7 fl (6.2-12.0); Monocyte# 0.73 X10^3/uL; Monocyte% 4.1 % (0-10); NRBC Flagged by Analyzer 0.2 % (0-5); Neutrophil # 15.38 X10^3/uL (2.7-7.7); Neutrophil % 87.2 % (47-70); Platelet Count 383 K/mm3 (150-450); RBC Distribution Width CV 14.9 % (11.6-14.6); RBC Distribution Width SD 48.3 fl (35.1-43.9); Red Blood Count 2.54 M/mm3 (4.2-5.4); White Blood Count 17.6 K/mm3 (4.4-11.0)
[2021-05-14 22:06] LABS: Anion Gap 6 (5-15); BUN 85 mg/dL (7-18); BUN/Creat Ratio 46.7 RATIO (10-20); Calcium,Total 9.2 mg/dL (8.5-10.1); Chloride 98 mmol/L (98-107); Creatinine, Serum 1.82 mg/dL (0.55-1.02); EST Glomerular Filtration Rate 29 mL/min (>60); Est Glom Filt Rate - Afr Amer 35 mL/min (>60); Estimated Creatinine Clearance 21.39 ml/min; Glucose 116 mg/dL (74-106); Potassium 5.2 mmol/L (3.5-5.1); Sodium Level 139 mmol/L (136-145)
[2021-05-14] MEDS: Atorvastatin Calcium 20 MG Tablet PO (22:14)
[2021-05-14 22:16] LABS: Bacteria 0 SEEN /hpf (None Seen); Mucous, Urine 0 SEEN /hpf (<or=2+); Red Blood Cells-Urine 0 SEEN /hpf (0-5); White Blood Cells 0 SEEN /hpf (0-5)
[2021-05-14 22:19] LABS: Color, Urine Yellow (Yellow); Glucose, Dipstick Normal (Normal); Ketone-Dipstick Negative (Negative); Leukocyte Esterase-Dipstick Negative /ul (Negative); Nitrite-Dipstick Negative (Negative); Occult Blood-Urine Negative /ul (Negative); Protein-Dipstick Negative (Negative); Specific Gravity, Urine 1.015 (1.002-1.030); Urine Bilirubin Dipstick Negative (Negative); Urine Clarity Sl. Cloudy (Clear); Urine Urobilinogen Normal (Normal)
[2021-05-14 22:25] LABS: Squamous Epithelial Cells - UA 0-5 SEEN /hpf (5-10)
--- NOTE | 2021-05-14 23:20 | NURSING ---
Called radiology to inquire about xray reports, states she will send a note to reading physician.
[2021-05-15] VITALS (11 sets, daily range): BP systolic 89–151; BP diastolic 42–68; PULSE 79–101; RESP 12–30; TEMP 36–36.4; O2SAT 95–99
--- NOTE | 2021-05-15 00:53 | NURSING ---
Addendum entered by Janis Gifford 05/15/21 06:23: Patient refusing AM meds after several attempts. Patient placed on Dr. Morrison list for him to assess. Addendum entered by Janis Gifford 05/15/21 04:31: Patient resting in recliner with head leaning on beside table. Waldo placed around table legs to avoid moving. Patient refusing to let any Nurse take vitals. Will keep trying. Addendum entered by Janis Gifford 05/15/21 03:29: Patient still anxious at this time. Attempted to administer Ativan per order to help make patient comfortable. Patient threw pill and said, NO MORE! Ativan wasted with Debora MCDANIEL. Addendum entered by Janis Gifford 05/15/21 03:09: Carmen called this Nurse back. Sister (PALMER) and daughter both still want Full code status. But no machines. Educated what could happen if patient's heart were to stop and sister responded with, Well I think if patient were to quit breathing she wouldn't come back anyhow. Her brain is already too far gone from her stroke. Verified again and patient is to stay full code at this time. Addendum entered by Janis Gifford 05/15/21 02:56: 02:44-Called patient's Sister Carmen (PALMER), updated sister on new orders and patient's condition. Discussed patient's code status of Full Code as well. Explained the difference between Full code, DNRCC-A and DNRCC. Explained to sister that patient keeps saying I quit, let God take me. Sister wanted to call patient's daughter and will be calling back. 01:58-This Nurse went into assess patient. Patient found in wheelchair laying against soiled utility cart. Oxygen off, IV unhooked at hub, blood all over patients hands and soiled utility cart. Oxygen placed back on patient via nasal cannula. Key MCDANIEL called to room. Patient's hands cleaned up. Patient assisted to bathroom. Patient had large incontinent bowel movement. Wheelchair cleaned up. Patient washed and assisted back to recliner. Vitals obtained. BP: 89/42; P:82; R: 26; O2: 95% on 3 LPM. Patient very agitated and struggling to breathe. Key RN called respiratory to apply bipap. When respiratory arrived to patients room, patient became very anxious, yelling and pointing at respiratory therapist. Patient refused to place bipap back on. When asked patient if she was struggling to breath, patient became more agitated. 1:1 given to patient. Patient calm at this time, laying head on bedside table. Original Note: Entered patients room, alarm sounding. Patient removing Bipap at this time. 1:1 given to keep bipap on but patient refused. Nasal Cannula replaced at 3 LPM. Patient ambulated to chair with 1x assist.
[2021-05-15] MEDS: 0.9% Normal Saline 1,000 ML 50 ML IV (01:14)
[2021-05-15] MEDS: Sodium Polystyrene Sulfonate 15 GM/60 ML UDC 30 GM PO (01:17)
[2021-05-15] MEDS: Albuterol 2.5 MG/3 ML VIAL.NEB. INHALATION ×3 (07:41→19:00)
[2021-05-15] MEDS: Budesonide Respules 0.5 MG/2 ML AMPUL.NEB. INHALATION ×2 (07:41→19:00)
--- NOTE | 2021-05-15 07:50 | NURSING ---
in to assess pt, new order for PICC placement.
[2021-05-15] MEDS: predniSONE 20 MG Tablet PO (09:07)
[2021-05-15] MEDS: Aspirin E.C. 81 MG Tablet PO (09:08)
[2021-05-15] MEDS: Furosemide 40 MG Tablet PO ×2 (09:08→18:20)
[2021-05-15] MEDS: LORazepam 0.5 MG Tablet PO ×2 (09:09→20:42)
--- NOTE | 2021-05-15 09:13 | NURSING ---
THIS NURSE INTO PT ROOM AND FOUND PT HAD PULLED IV OUT. BLOOD ALL OVER PT AND FLOOR. PT VERY UPSET. CALLED RN TO ROOM AND GOT PT CLEANED UP AND TO BATHROOM. PT BACK TO RECLINER AND PT TOOK MEDS FOR THIS NURSE. PRN ATIVAN GIVEN,COREG HELD DO TO LOW BP. OK PER RN.
--- NOTE | 2021-05-15 11:30 | NURSING ---
Front Line Leader up to floor to do Picc line. Pt INR is 4.7 Front Line Leader unable to do Picc line at this time d/t INR but okay to do Midline. Dr. Chao called and updated and gave order to do mindline instead of Picc.
--- NOTE | 2021-05-15 12:48 | CASEMGMT ---
Social Work Patient sister request for social work to meet with patient in room with patient sister present to discuss code status. Patient wishes to be DNRCC with no intubation. Nursing staff updated of patient wishes. Homero ZIMMERMAN, NINO
[2021-05-15 13:31] LABS: Anion Gap 5 (5-15); BUN 90 mg/dL (7-18); BUN/Creat Ratio 40.9 RATIO (10-20); Calcium,Total 8.7 mg/dL (8.5-10.1); Chloride 97 mmol/L (98-107); EST Glomerular Filtration Rate 23 mL/min (>60); Est Glom Filt Rate - Afr Amer 28 mL/min (>60); Glucose 122 mg/dL (74-106); Potassium 4.7 mmol/L (3.5-5.1); Sodium Level 137 mmol/L (136-145)
[2021-05-15 14:08] LABS: International Normalized Ratio 3.7; Prothrombin Time (Protime)PT. 36.1 SECONDS (11.7-14.9)
[2021-05-15] MEDS: 0.9% Saline Lock 10 ML Syringe IV (15:57)
[2021-05-15] MEDS: busPIRone 15 MG TABLET 7.5 MG PO (18:20)
[2021-05-15] MEDS: Carvedilol 6.25 MG Tablet PO (18:20)
[2021-05-15] MEDS: Menthol/Lanolin/Calamine/Znox 113 GM Tube 1 APPLIC TOPICAL (18:21)
[2021-05-15] MEDS: Nystatin Powder 15gm Bottle 1 APPLIC TOPICAL (18:22)
[2021-05-15] MEDS: Senna/Docusate Sodium 1 Tablet PO (18:23)
[2021-05-15] MEDS: Lisinopril 20 MG Tablet PO (18:24)
--- NOTE | 2021-05-15 20:05 | NURSING ---
Infusion center called to schedule Blood transfusion for 05/16/21 @ 8:00 am
[2021-05-15] MEDS: Atorvastatin Calcium 20 MG Tablet PO (20:26)
[2021-05-15] MEDS: Isosorbide Mononitrate 30 MG Tablet PO (20:26)
[2021-05-15] MEDS: traZODone 100 MG Tablet PO (20:47)
--- NOTE | 2021-05-15 23:04 | CPS ---
Pt. was taking her BiPAP mask off, claiming that she didn't want to wear it anymore. RN transitioned pt. back on 2L NC. Pt. tachypneic (26-34 bpm), with SpO2 = 97%
[2021-05-16] MEDS: LORazepam 0.5 MG Tablet PO (02:39)
--- NOTE | 2021-05-16 02:49 | NURSING ---
pt awake and restless, sitting up at the side of the bed unable to sleep, assisted pt to the restroom, ativan given and assisted into bed and placed on bipap.
[2021-05-16 05:00] VITALS: BP 95/69; PULSE 88; RESP 18; O2SAT 100
[2021-05-16] MEDS: busPIRone 15 MG TABLET 7.5 MG PO (05:26)
[2021-05-16] MEDS: Menthol/Lanolin/Calamine/Znox 113 GM Tube 1 APPLIC TOPICAL (05:26)
[2021-05-16] MEDS: Lisinopril 20 MG Tablet PO (05:26)
[2021-05-16] MEDS: Polyethylene Glycol 3350 17 GM PACKET PO (05:26)
[2021-05-16] MEDS: Montelukast 10 MG Tablet PO (05:26)
[2021-05-16] MEDS: Senna/Docusate Sodium 1 Tablet PO (05:26)
[2021-05-16] MEDS: Clopidogrel Bisulfate 75 MG Tablet PO (05:26)
[2021-05-16] MEDS: Nystatin Powder 15gm Bottle 1 APPLIC TOPICAL (05:28)
[2021-05-16] MEDS: 0.9% Normal Saline 1,000 ML 50 ML IV (05:29)
[2021-05-16] MEDS: Budesonide Respules 0.5 MG/2 ML AMPUL.NEB. INHALATION (07:30)
[2021-05-16] MEDS: Albuterol 2.5 MG/3 ML VIAL.NEB. INHALATION ×2 (07:30→13:33)
[2021-05-16 07:32] VITALS: PULSE 89; RESP 18; O2SAT 97
[2021-05-16] MEDS: predniSONE 20 MG Tablet PO (08:01)
[2021-05-16] MEDS: Furosemide 40 MG Tablet PO (08:01)
[2021-05-16] MEDS: Aspirin E.C. 81 MG Tablet PO (08:01)
[2021-05-16] MEDS: Carvedilol 6.25 MG Tablet PO (08:02)
--- NOTE | 2021-05-16 08:11 | NURSING ---
Pt left floor at this time and went to infusion center to receive blood transfusion
[2021-05-16 08:29] LABS: International Normalized Ratio 3.1; Prothrombin Time (Protime)PT. 31.3 SECONDS (11.7-14.9)
--- NOTE | 2021-05-16 09:45 | NURSING ---
Transfusion center called
--- NOTE | 2021-05-16 09:45 | NUR.TO.PHY ---
Transfusion called and reported pt blood pressure dropped in the first 15 minutes of starting infusion, they reported that they notified Dr. Chao and they are giving pt a bolus of NS and stopping the transfusion, once pt's BP increases they will be sending her back to TCU.
[2021-05-16 10:00] VITALS: O2SAT 3
--- NOTE | 2021-05-16 11:20 | CASEMGMT ---
Social Work Plan of care meeting held. Patient present as well as patient sister and POA, Clair. Patient having difficulty participating in therapy and per palliative care would qualify for hospice services. [facility] to meet with patient and Clair today to discuss options. Patient with next insurance update due on 05/17/2021. [facility] small business representative here to meet with patient and Clair. Will continue to follow. Homero ZIMMERMAN, DUSTINS
--- NOTE | 2021-05-16 11:37 | NURSING ---
Pt's sister is here along with Hospice for consult at this time.
--- NOTE | 2021-05-16 11:43 | NURSING ---
Pt back on floor at this time.
[2021-05-16 13:34] VITALS: PULSE 90; RESP 18
--- NOTE | 2021-05-16 14:06 | CASEMGMT ---
Social Work Dr. Chao and Dr. Griffin ([facility]) completed doctor to doctor report and plan is for patient to discharge to [facility] today. Patient and patient sister, Clair are agreeable to plan. Transportation set up for 05/16/2021 with ETA of 2:30pm. Transportation completed and placed with patient discharge packet. Discharge information and clinical chart faxed to [facility]. Proposed discharge date: 05/16/2021 Disposition: [facility] inpatient unit. Homero ZIMMERMAN, NINO
--- NOTE | 2021-05-16 14:13 | NURSING ---
[facility].
[2021-05-16 14:18] VITALS: BP 139/69; PULSE 71; RESP 22; TEMP 36.4; O2SAT 90
--- NOTE | 2021-05-16 20:29 | DS.PCM_ITS ---
Providers Date of Admission: 05/09/21 Primary Care Physician: Dr. Romario Aguilar, DO Consultations 05/10/21 12:23 Consult: Hospice / Palliative Care Routine Consulting Provider: [facility] Reason for Consult: Palliative Medicine Referral - CAD, Stroke, uncontrolled symptoms EMERGENT Consult: No MD Notified: Yes Date Notified: 05/10/21 Time Notified: 12:23 Method of Notification: Provider Initiated Reason For Visit: ARF AFTER HEART CATH Diagnosis Discharge Diagnosis (1) Debility: Status: Acute Code(s): R53.81 - Other malaise (2) Weakness: Status: Inactive Code(s): R53.1 - Weakness (3) Shortness of breath: Status: Inactive Code(s): R06.02 - Shortness of breath (4) Anxiety: Status: Acute Code(s): F41.9 - Anxiety disorder, unspecified (5) Insomnia: Status: Inactive Code(s): G47.00 - Insomnia, unspecified Qualifiers: Insomnia type: primary Qualified Code(s): F51.01 - Primary insomnia (6) COPD (chronic obstructive pulmonary disease): Status: Inactive Code(s): J44.9 - Chronic obstructive pulmonary disease, unspecified Qualifiers: COPD type: unspecified COPD Qualified Code(s): J44.9 - Chronic obstructive pulmonary disease, unspecified (7) Depression: Status: Acute Code(s): F32.9 - Major depressive disorder, single episode, unspecified Qualifiers: Depression Type: unspecified Qualified Code(s): F32.9 - Major depressive disorder, single episode, unspecified (8) Osteoarthritis of left hip: Status: Acute Code(s): M16.12 - Unilateral primary osteoarthritis, left hip Qualifiers: Osteoarthritis type: primary Qualified Code(s): M16.12 - Unilateral primary osteoarthritis, left hip (9) Bipolar disorder: Status: Acute Code(s): F31.9 - Bipolar disorder, unspecified Qualifiers: Active/Remission status: remission status unspecified Qualified Code(s): F31.9 - Bipolar disorder, unspecified (10) Atrial fibrillation: Status: Acute Code(s): I48.91 - Unspecified atrial fibrillation Qualifiers: Atrial fibrillation type: unspecified Qualified Code(s): I48.91 - Un specified atrial fibrillation Medications at Discharge Home Medications trazodone 100 mg tablet 100 mg PO QHS PRN #30 tablet 02/21/21 buspirone 7.5 mg PO BID 05/02/21 furosemide [Lasix] 40 mg PO BIDCM 05/02/21 montelukast 10 mg PO DAILY 05/02/21 albuterol sulfate 2.5 mg INHALATION Q6H 05/07/21 budesonide [Pulmicort] 0.5 mg INHALATION BID 05/07/21 home oxygen 05/07/21 nebulizer 05/07/21 polyethylene glycol 3350 [Miralax] 17 g PO DAILY 05/07/21 Hospital Course Operations None Procedures None Summary of Care Provided Minutes Spent on Discharge: 35 Hospital Course: 70 year old female with below past medical history significant for recent NSTEMI, hospitalized for acute respiratory failure with hypoxia secondary to COPD exacerbation, complicated by acute kidney injury, hyperkalemia, admitted to TCU with debility, here for rehabilitation, strengthening, prior to discharge home with family. Resident had progressive decline. She is dying. Resident has uncontrolled anxiety, restlessness, low back pain, made more difficult by her expressive aphasia. Discharge to Inpatient Hospice Facility 05/16/2021 for symptom management, end of life care. Physical Exam Const alert and oriented x3 General Appearance: cooperative HEENT normocephalic Eyes PERRL and EOMs intact bilaterally Neck supple, no JVD and no carotid bruits Resp normal respiratory effort, normal air movement and clear to auscultation bilaterally Cardio regular rate and regular rhythm GI normal to inspection, nondistended, normoactive bowel sounds, non-tender and non-distended Extremity normal capillary refill General Extremity: Negative for edema Skin no rashes or lesions noted General Skin Exam: no breakdown Psych affect normal Appearance: appropriate Weight / BMI Weight Weight: 100.471 kg Body Mass Index (BMI) 41.8 ABG / Lab / Microbiology Data Result Diagrams: 05/14/21 21:47 05/15/21 12:15 Laboratory: Laboratory Results - last 24 hr 05/15/21 05/16/21 12:15 07:10 PT 31.3 H INR 3.1 Blood Type Cancelled Antibody Screen Cancelled Crossmatch See Detail Microbiology: Microbiology 05/14/21 16:48 Urine Culture - Preliminary Urine Catheter - Catheter Culture exhibits no growth. Microbiology 05/14/21 16:48 Urine Catheter - Catheter Urine Culture - Preliminary Culture exhibits no growth. D/C Instructions Discharge Diet: No restrictions Discharge Activity: Return to Normal Activity Weight Bearing Status: Weight bearing as tolerated Additional Instructions: Discharge to Inpatient Hospice Facility 05/16/2021 for symptom management, end of life care. Please Follow Up With: Romario Aguilar, DO When: As needed. Meaningful Use Info Meaningful Use Diagnoses (Choose all that apply): None applicable Discharge Plan Admission Admit Date/Time: 05/09/21 13:40 Primary Reason for Your Visit: Debility. Attending Provider: Peewee Chao Chi Primary Care Provider: Romario Aguilar Consulting Providers: Molly Rodriguez ; Clifford Griffin ; Gia Nelson ; Flora Henson ; Narcisa Garcia ; Lenora Salmon [employer] Instructions Patient Instructions: ED Chest Pain, Noncardiac Additional Instructions / Restrictions: Discharge to Inpatient Hospice Facility 05/16/2021 for symptom management, end of life care. Discharge Orders/Prescriptions Prescriptions: Continued trazodone 100 mg tablet 100 mg PO QHS PRN (Reason: sleep) Qty: 30 RF: 2 furosemide [Lasix] 40 mg tablet 40 mg PO BIDCM RF: 0 buspirone 7.5 mg tablet 7.5 mg PO BID RF: 0 montelukast 10 mg tablet 10 mg PO DAILY RF: 0 albuterol sulfate 2.5 mg /3 mL (0.083 %) Solution For Nebulization 2.5 mg inhalation Q6H RF: 0 budesonide [Pulmicort] 0.5 mg/2 mL Suspension For Nebulization 0.5 mg INHALATION BID RF: 0 (DME) home oxygen RF: 0 (DME) nebulizer See Rx Instructions RF: 0 Discontinued aspirin 81 mg tablet,delayed release (DR/EC) 81 mg PO QDAY RF: 0 isosorbide mononitrate 30 mg tablet extended release 24 hr 30 mg PO QHS RF: 0 clopidogrel 75 mg tablet 75 mg PO DAILY RF: 0 carvedilol [Coreg] 3.125 mg tablet 6.25 mg PO BIDCM RF: 0 lisinopril 10 mg tablet 10 mg PO QDAY RF: 0 warfarin 2 mg tablet 2 mg PO WE RF: 0 warfarin 5 mg tablet 5 mg PO SUMOTUTHFRSA RF: 0 Ensure Liquid 120 ml PO 4X/DAY RF: 0 atorvastatin [Lipitor] 20 mg Tablet 20 mg PO QHS RF: 0 sennosides-docusate sodium [Senokot-S] 8.6-50 mg Tablet 1 tab-cap PO BID RF: 0 prednisone 20 mg tablet 40 mg PO DAILY RF: 0 No Action polyethylene glycol 3350 [Miralax] 17 gram Powder In Packet 17 g PO DAILY RF: 0 Referrals / Follow Up: Romario Aguilar DO [Primary Care Provider] - Disposition Disposition (needs filled in before D/C Order can be placed): Hospice in Medical Facility
--- NOTE | 2021-05-22 10:21 | MDS.RN ---
Information for the mds was obtained from review of the clinical record, interview of resident, staff, and direct observation of resident's care.
== END 2021-05-16 14:30 | disposition hospice, inpatient (51) | DRG 191 ==
PROVIDERS: Admitting Provider Family Medicine Geriatric Medicine; PCP Family Medicine; Visit Provider Family Medicine Geriatric Medicine
DX: J44.1 Chronic obstructive pulmonary disease with (acute) exacerbation (principal); I50.22 Chronic systolic (congestive) heart failure; R47.01 Aphasia; Z68.41 Body mass index [BMI] 40.0-44.9, adult; I11.0 Hypertensive heart disease with heart failure; Z23 Encounter for immunization; I25.10 Atherosclerotic heart disease of native coronary artery without angina pectoris; E78.5 Hyperlipidemia, unspecified; F41.9 Anxiety disorder, unspecified; J30.9 Allergic rhinitis, unspecified; I25.2 Old myocardial infarction; B35.4 Tinea corporis; F31.9 Bipolar disorder, unspecified; E66.01 Morbid (severe) obesity due to excess calories; Z87.891 Personal history of nicotine dependence; Z86.73 Personal history of transient ischemic attack (TIA), and cerebral infarction without residual deficits
CPT/HCPCS: 36415; 71046; 74018; 80048; 81001; 85025; 85610; 86850; 86900; 86901; 86920; 86922; 87086; 87088; 92507; 92523; 92610; 94002; 94003; 94640; 97110; 97162; 97166; 97530; 97535; 97802; G0009; J7030; 90670; A4216

== ENCOUNTER → 2021-05-16 08:09 | Outpatient (CLI) | payer MEDICARE, MEDICAID, SELFPAY ==
[2021-05-09 13:51] VITALS: BMI 41.8
[2021-05-16] VITALS (7 sets, daily range): BP systolic 56–138; BP diastolic 37–114; PULSE 65–90; RESP 16–20; TEMP 35.6; O2SAT 100; BMI 41.8
[2021-05-16] MEDS: 0.9% NaCl Peripheral Flush Adult/Peds IV (08:40)
[2021-05-16] MEDS: 0.9% Normal Saline 1,000 ML 999 ML IV (09:40)
== END ==
PROVIDERS: PCP Family Medicine; Referring Provider Family Medicine Geriatric Medicine; Visit Provider Family Medicine Geriatric Medicine
DX: N17.9 Acute kidney failure, unspecified (principal)
CPT/HCPCS: 36430; 86850; 86900; 86901; 86920; 86922; J7030; J7040; J7050; P9016; A4216